=== PATIENT | female | born 1990 | race Caucasian/White ===

== ENCOUNTER 2019-05-29 07:56 | Emergency (ER) | payer OTHER, SELFPAY ==
[2019-05-29 08:39] LABS: Absolute Lymphocytes (CBC) 2.3 K/uL (0.7-4.9); Basophils % 0.5 % (0-1.3); Hematocrit 42.8 % (36.0-45.0); Lymphocytes % 27.6 % (15.3-44.8); MPV 8.4 fL (7.6-11.3); RBC Red Blood Cell Count 4.78 M/uL (3.86-4.86)
[2019-05-29 08:43] LABS: Urine Blood 3+ (NEG); Urine Glucose NEGATIVE (NEG); Urine Protein 1+ (NEG); Urine Specific Gravity >1.030 (1.005-1.030)
[2019-05-29 08:46] LABS: Urine Bacteria <20 /HPF (<20); Urine RBC >50 /HPF (NONE SEEN)
[2019-05-29 08:47] LABS: Urine Culture Reflex Order NOT NEEDED; Urine Mucus LIGHT /HPF (NONE SEEN)
[2019-05-29 08:55] LABS: BUN Blood Urea Nitrogen 10 mg/dL (7-18); Bicarbonate 26 mmol/L (21-32); Glucose Level 96 mg/dL (74-106); HCG, Quantitative 8 mIU/mL (1-3); Potassium 3.5 mmol/L (3.5-5.1); Sodium Level 141 mmol/L (136-145)
--- NOTE | 2019-05-29 10:00 | ER ---
Nurse's Notes [facility] Name: Ceci Harrell Age: 29 yrs Sex: Female : 1990 Arrival Date: 05/29/2019 Time: 07:57 Bed 19 Private MD: Diagnosis: Possible miscarriage Presentation: 05/29 08:00 Presenting complaint: Patient states: Had blood in her underwear, c/o cramping in left rb1 lower quadrant. Onset of symptoms was May 28, 2019. Risk Assessment: Do you want to hurt yourself or someone else? Patient reports no desire to harm self or others. Initial Sepsis Screen: Does the patient meet any 2 criteria? No. Patient's initial sepsis screen is negative. Does the patient have a suspected source of infection? No. Patient's initial sepsis screen is negative. Care prior to arrival: None. 08:00 Acuity: KYA 3 rb1 08:07 Transition of care: patient was not received from another setting of care. ss 08:07 Method Of Arrival: Ambulatory ss Triage Assessment: 08:00 General: Appears comfortable, Behavior is calm, cooperative, crying, Denies fever. rb1 Pain: Complains of pain in left lower quadrant Pain currently is 4 out of 10 on a pain scale. Quality of pain is described as crampy. Neuro: Level of Consciousness is awake, alert, obeys commands, Oriented to person, place, time, situation. Cardiovascular: Capillary refill < 3 seconds is brisk in bilateral fingers. Respiratory: Airway is patent Respiratory effort is even, unlabored, Respiratory pattern is regular, symmetrical. GI: No signs and/or symptoms were reported involving the gastrointestinal system. : Reports vaginal bleeding that is light flow. Derm: Skin is pink, warm \T\ dry. Historical: - Allergies: 08:00 No Known Allergies; rb1 - Home Meds: 08:00 vitamins [Active]; rb1 - PMHx: 08:00 None; rb1 - PSHx: 08:00 None; rb1 - Immunization history:: Adult Immunizations up to date. - Social history:: Smoking status: Patient/guardian denies using tobacco. - Family history:: not pertinent. - Ebola Screening: : Patient negative for fever greater than or equal to 101.5 degrees Fahrenheit, and additional compatible Ebola Virus Disease symptoms. - Hospitalizations: : No recent hospitalization is reported. Screenin:00 Abuse screen: Denies threats or abuse. Nutritional screening: No deficits noted. rb1 Tuberculosis screening: No symptoms or risk factors identified. Fall Risk None identified. Assessment: 08:00 General: See triage assessment. rb1 08:30 Reassessment: Patient appears in no apparent distress at this time. No changes from rb1 previously documented assessment. 09:44 Reassessment: Patient appears in no apparent distress at this time. Patient and/or rb1 family updated on plan of care and expected duration. Pain level reassessed. Patient is alert, oriented x 3, equal unlabored respirations, skin warm/dry/pink. Vital Signs: 08:00 BP 121 / 79; Pulse 83; Resp 17; Temp 97.8(O); Pulse Ox 100% on R/A; Weight 61.23 kg rb1 (R); Height 5 ft. 2 in. (157.48 cm) (R); Pain 4/10; 08:30 BP 104 / 69; Pulse 69; Resp 16; Pulse Ox 99% on R/A; rb1 10:00 BP 106 / 79; Pulse 70; Resp 17; Pulse Ox 98% on R/A; rb1 08:00 Body Mass Index 24.69 (61.23 kg, 157.48 cm) rb1 ED Course: 07:57 Patient arrived in ED. as 07:58 Julio Killian MD is Attending Physician. rn 07:59 Siria Vieira, BENSON is Primary Nurse. rb1 08:00 Patient has correct armband on for positive identification. Bed in low position. Call rb1 light in reach. Side rails up X 1. Pulse ox on. NIBP on. Warm blanket given. 08:00 Arm band placed on right wrist. rb1 08:11 Triage completed. rb1 08:24 Inserted saline lock: 22 gauge in right antecubital area, using aseptic technique. rb1 Blood collected. 08:25 Urine collected: clean catch specimen, vineet colored. dh3 09:17 US Transvaginal Ob In Process Unspecified. EDMS 10:15 No provider procedures requiring assistance completed. IV discontinued, intact, rb1 bleeding controlled, No redness/swelling at site. Pressure dressing applied. 10:15 No provider procedures requiring assistance completed. rb1 Administered Medications: No medications were administered Outcome: 10:00 Discharge ordered by . rn 10:15 Patient left the ED. rb1 10:15 Discharged to home ambulatory, with family. rb1 10:15 Condition: stable 10:15 Discharge instructions given to patient, Instructed on discharge instructions, follow up and referral plans. Demonstrated understanding of instructions, follow-up care, Prescriptions given X none Signatures: Dispatcher [employer] Sarah Lizama Roman, MD MD rn Smirch, Shelby, RN RN Siria Vieira RN RN [facility] Ivana Mohan [facility]
--- NOTE | 2019-05-29 10:01 | EDPHYS ---
Physician Documentation [facility] Name: Ceci Harrell Age: 29 yrs Sex: Female : 1990 Arrival Date: 05/29/2019 Time: 07:57 Bed 19 Private MD: ED Physician Julio Killian HPI: 05/29 08:08 This 29 yrs old Female presents to ER via Ambulatory with complaints of rn Vaginal Bleeding, + Preg <12wks. 08:08 The patient presents to the emergency department with vaginal bleeding, that is light, rn with no clots. The estimated gestational age is 5 weeks. course: care: none, Leakage of Fluid: none appreciated, Ultrasound: the patient has not had an ultrasound. Previous pregnancies: in previous pregnancies patient has had no complications. The patient has not experienced similar symptoms in the past. Reports approx 5 weeks preg based on LMP, reports yesterday began with light bleeding, not much worse, + abd cramping worse on left, no fever, no trauma. Has been trying to get , no hormones, naturally.. Historical: - Allergies: 08:00 No Known Allergies; rb1 - Home Meds: 08:00 vitamins [Active]; rb1 - PMHx: 08:00 None; rb1 - PSHx: 08:00 None; rb1 - Immunization history:: Adult Immunizations up to date. - Social history:: Smoking status: Patient/guardian denies using tobacco. - Family history:: not pertinent. - Ebola Screening: : Patient negative for fever greater than or equal to 101.5 degrees Fahrenheit, and additional compatible Ebola Virus Disease symptoms. - Hospitalizations: : No recent hospitalization is reported. ROS: 08:08 Constitutional: Negative for fever, chills, and weight loss, Eyes: Negative for injury, rn pain, redness, and discharge, Neck: Negative for injury, pain, and swelling, Cardiovascular: Negative for chest pain, palpitations, and edema, Respiratory: Negative for shortness of breath, cough, wheezing, and pleuritic chest pain, Abdomen/GI: + left lower abd cramping Back: Negative for injury and pain, : + vaginal bleeding MS/Extremity: Negative for injury and deformity, Skin: Negative for injury, rash, and discoloration, Neuro: Negative for headache, weakness, numbness, tingling, and seizure. Exam: 08:08 Constitutional: This is a well developed, well nourished patient who is awake, alert, rn and in no acute distress. Ambulatory to room without assistance, tearful. Head/Face: Normocephalic, atraumatic. Cardiovascular: Regular rate and rhythm. No pulse deficits. Respiratory: No increased work of breathing, no retractions or nasal flaring. Abdomen/GI: soft, non-tender Skin: Warm, dry MS/ Extremity: Pulses equal, no cyanosis. Neuro: Awake and alert, GCS 15, oriented to person, place, time, and situation. Cranial nerves II-XII grossly intact. Motor strength 5/5 in all extremities. Sensory grossly intact. Cerebellar exam normal. Normal gait. Vital Signs: 08:00 BP 121 / 79; Pulse 83; Resp 17; Temp 97.8(O); Pulse Ox 100% on R/A; Weight 61.23 kg rb1 (R); Height 5 ft. 2 in. (157.48 cm) (R); Pain 4/10; 08:30 BP 104 / 69; Pulse 69; Resp 16; Pulse Ox 99% on R/A; rb1 10:00 BP 106 / 79; Pulse 70; Resp 17; Pulse Ox 98% on R/A; rb1 08:00 Body Mass Index 24.69 (61.23 kg, 157.48 cm) rb1 MDM: 07:58 Patient medically screened. rn 09:58 Differential diagnosis: ectopic . Data reviewed: vital signs, nurses notes, internal control specialist test result(s), radiologic studies, ultrasound, and as a result, I will discharge patient. Counseling: I had a detailed discussion with the patient and/or guardian regarding: the historical points, exam findings, and any diagnostic results supporting the discharge/admit diagnosis, lab results, radiology results, the need for outpatient follow up, to return to the emergency department if symptoms worsen or persist or if there are any questions or concerns that arise at home. Response to treatment: the patient's symptoms have mildly improved after treatment, and as a result, I will discharge patient. Special discussion: I discussed with the patient/guardian in detail that at this point there is no indication for admission to the hospital. It is understood, however, that if the symptoms persist or worsen the patient needs to return immediately for re-evaluation. Based on the history and exam findings, there is no indication for further emergent testing or inpatient evaluation. I discussed with the patient/guardian the need to see the OB Gyne specialist for further evaluation of the symptoms. ED course: HCG 8, RH+, no UTI, U/S does not show evidence of IUP but pelvis and adnexa look normal otherwise. Will dc home as undetermined, most likely completing spontaneous Ab, but to be determined with repeat beta and u/s. . 10:07 ED course: Explained possible ectopic and reason for repeat beta and rn evaluation. . 05/29 08:08 Order name: Quantitative Hcg; Complete Time: 09:06 rn 05/29 08:08 Order name: Abo/rh Typing; Complete Time: 09:06 rn 05/29 08:08 Order name: Basic Metabolic Panel; Complete Time: 09:06 rn 05/29 08:08 Order name: CBC with Diff; Complete Time: 09:06 rn 05/29 08:08 Order name: Urine Microscopic Only; Complete Time: 09:06 rn 05/29 08:36 Order name: Urine Dipstick--Ancillary (enter results); Complete Time: 09:06 em1 05/29 08:08 Order name: Urine Test (obtain specimen); Complete Time: 08:32 rn 05/29 08:08 Order name: IV Saline Lock; Complete Time: 08:35 rn 05/29 08:08 Order name: Labs collected and sent; Complete Time: 08:35 rn 05/29 08:08 Order name: NPO; Complete Time: 08:35 rn 05/29 08:08 Order name: Urine Dipstick-Ancillary (obtain specimen); Complete Time: 08:32 rn 05/29 08:08 Order name: US Transvaginal Ob; Complete Time: 10:06 rn 05/29 08:36 Order name: Urine --Ancillary (enter results); Complete Time: 09:06 em1 Administered Medications: No medications were administered Disposition: 05/29/19 10:00 Discharged to Home. Impression: Possible miscarriage. - Condition is Stable. - Discharge Instructions: Miscarriage, Threatened Miscarriage. - Medication Reconciliation Form, Thank You Letter, Antibiotic Education, Prescription Opioid Use form. - Follow up: Private Physician; When: 48 Hours; Reason: Further diagnostic work-up, Recheck today's complaints, Repeat Beta-HCG (48 Hours), Re-evaluation by your physician. - Problem is new. - Symptoms have improved. Signatures: Dispatcher [employer] EDJulio Marcus MD MD rn Barber, Rebecca, RN RN rb1 Corrections: (The following items were deleted from the chart) 10:15 10:00 05/29/2019 10:00 Discharged to Home. Impression: Possible miscarriage. Condition rb1 is Stable. Forms are Medication Reconciliation Form, Thank You Letter, Antibiotic Education, Prescription Opioid Use. Follow up: Private Physician; When: 48 Hours; Reason: Further diagnostic work-up, Recheck today's complaints, Repeat Beta-HCG (48 Hours), Re-evaluation by your physician. Problem is new. Symptoms have improved. rn
--- NOTE | 2019-05-29 10:06 | RAD REPORT ---
EXAM DESCRIPTION: US - Transvaginal OB - 05/29/2019 9:17 am CLINICAL HISTORY: Abd pain;Vaginal bleeding COMPARISON: No comparisons FINDINGS: The uterus measures 6.4 x 6.6 x 4.0 cm. No myometrial mass. Endometrium measures 8 mm in t hickness. No IUP is identified. Both ovaries are normal in size, shape and echotexture. Right ovary measures 2.2 x 2.2 cm. Left ovary measures 1.5 x 1.4 cm. No adnexal masses. Normal Doppler blood flow was demonstrated to both ovaries. No pelvic ascites. IMPRESSION: No IUP is confirmed on this study. In this setting of an elevated HCG level, this would indicate of unknown location. Advise serial HCG measurements and follow-up pelvic sonograph y in 7-10 days.
[2019-05-29 10:35] VITALS: TEMP 97.8
[2019-05-29 10:39] VITALS: BP 106/79; O2SAT 98
== END 2019-05-29 10:15 | disposition home or self-care (01) ==
LOC: ER 07:56
DX: O20.0 Threatened abortion (principal); Z3A.01 Less than 8 weeks gestation of pregnancy
CPT/HCPCS: 36415; 76817; 80048; 81003; 81015; 81025; 84702; 85025; 86900; 86901; 99284

== ENCOUNTER 2020-10-30 10:59 | Emergency (ER) | payer OTHER ==
--- OUTSIDE RECORDS SUMMARY | 2020-10-30 11:01 | XMS REPORT | Continuity of Care Document ---
:1990 Author Organization [facility] t Address [address] [place] [address] Dr. Syed [address] [place] [id number] Care Team Providers Name Role Phone Malachi Durbin Attending Clinician Doctor Unassigned, Name Attending Clinician Unavailable Problems Condition Condition Condition Status Onset Resolution Last Treating Co mments Source Name Details Category Date Date Treatment Clinician Date Encounter Encounter Diagnosis Active [facility] adult adult l medical medical Outpati examinatio examinatio en t n without n without Clin ics abnormal abnormal findings findings Tobacco Tobacco Diagnosis Active [facility] counseling [facility] Out[facility] Clinics Allergies, Adverse Reactions, Alerts This patient has no known allergies or adverse reactions. Medications Ordered Filled Start Stop Current Ordering Indication Dosage Frequency Signature Comments Components Source Medication Medication Date Date Medication? Clinician (SIG) Name Name 1 1 Yes Yvan not C [facility] defined [facility] Procedures This patient has no known procedures. 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
[2020-10-30 11:55] LABS: Urine Blood 1+ (Negative); Urine Glucose Negative (Negative); Urine Protein Negative (Negative); Urine pH 5.5 (5.0-7.0)
[2020-10-30 12:37] LABS: Absolute Lymphocytes (CBC) 1.8 K/uL (0.7-4.9); Basophils % 0.7 % (0-1.3); Hematocrit 42.1 % (36.0-45.0); Lymphocytes % 26.9 % (15.3-44.8); RBC Red Blood Cell Count 4.71 M/uL (3.86-4.86)
--- NOTE | 2020-10-30 12:39 | RAD REPORT ---
EXAM DESCRIPTION: US - Transvaginal OB - 10/30/2020 12:26 pm CLINICAL HISTORY: with abdominal pain COMPARISON: None. FINDINGS: The uterus measures 7 x 4 x 5 centimeters. It is retroverted The endometrial stripe measu res 8 millimeters. A gestational sac is not seen. Ovaries are normal in size and echotexture.. An adnexal mass is not noted. No significant free fluid IMPRESSION: Nonvisualization of a gestational sac within the endometrium. These findings could represent an early intrauterine in which the gestational sac is not se en. and even an ectopic can also result in this appearance. This all should be cor related clinically and with serial beta HCG levels. Followup endovaginal sonogram in 1 week recommend ed
[2020-10-30 12:55] LABS: BUN Blood Urea Nitrogen 9 mg/dL (7-18); Bicarbonate 25 mmol/L (21-32); Glucose Level 95 mg/dL (74-106); HCG, Quantitative 11 mIU/mL (1-3); Potassium 3.7 mmol/L (3.5-5.1); Sodium Level 140 mmol/L (136-145)
--- NOTE | 2020-10-30 13:31 | ER ---
Nurse's Notes [facility] Name: Ceci Harrell Age: 30 yrs Sex: Female : 1990 Arrival Date: 10/30/2020 Time: 11:01 Bed 8 Private MD: Diagnosis: Abnormal uterine and vaginal bleeding, unspecified-with complete Presentation: 10/30 11:18 Chief complaint: Mild abdominal cramping and scant red vaginal bleeding after urinating hb today. 4 weeks , LMP 09/29, RANGEL 07/07/21. Received notification through [facility] [employer] that she has a UTI but is not yet taking antibiotics. Coronavirus screen: At this time, the client does not indicate any symptoms associated with coronavirus-19. Ebola Screen: No symptoms or risks identified at this time. Initial Sepsis Screen: Does the patient meet any 2 criteria? No. Patient's initial sepsis screen is negative. Does the patient have a suspected source of infection? No. Patient's initial sepsis screen is negative. Risk Assessment: Do you want to hurt yourself or someone else? Patient reports no desire to harm self or others. Onset of symptoms was October 30, 2020. 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 - Social history:: Smoking status: Patient/guardian denies using tobacco, Stopped _ months ago .25. - Family history:: not pertinent. Screenin:47 Abuse screen: Denies threats or abuse. Denies injuries from another. Nutritional ph screening: No deficits noted. Tuberculosis screening: No symptoms or risk factors identified. Fall Risk None identified. Assessment: 11:46 General: Appears in no apparent distress. comfortable, slender, well groomed, Behavior ph is calm, cooperative, appropriate for age. Pain: Complains of pain in suprapubic area Quality of pain is described as crampy. Neuro: Level of Consciousness is awake, alert, obeys commands, Oriented to person, place, time, situation. Cardiovascular: Capillary refill < 3 seconds Patient's skin is warm and dry. Respiratory: Airway is patent Respiratory effort is even, unlabored. GI: Patient currently denies diarrhea, nausea, vomiting. : Reports vaginal bleeding that is light flow, spotty, Denies burning with urination, urinary frequency. Derm: Skin is intact, is healthy with good turgor, Skin is pink, warm \T\ dry. Musculoskeletal: Circulation, motion, and sensation intact. Range of motion: intact in all extremities. 13:00 Reassessment: Patient appears in no apparent distress at this time. Patient and/or ph family updated on plan of care and expected duration. Pain level reassessed. Patient is alert, oriented x 3, equal unlabored respirations, skin warm/dry/pink. 14:23 Reassessment: Patient appears in no apparent distress at this time. Patient and/or ph family updated on plan of care and expected duration. Pain level reassessed. Patient is alert, oriented x 3, equal unlabored respirations, skin warm/dry/pink. Pt d/c home w/ friend. Vital Signs: 11:18 BP 128 / 76; Pulse 67; Resp 16; Temp 97.8; Pulse Ox 100% on R/A; Weight 57.15 kg; hb Height 5 ft. 2 in. (157.48 cm); Pain 3/10; 13:00 BP 118 / 72; Pulse 64; Resp 18; Pulse Ox 99% on R/A; ph 14:24 BP 122 / 85; Pulse 71; Resp 14; Temp 98.0; Pulse Ox 100% on R/A; ph 11:18 Body Mass Index 23.05 (57.15 kg, 157.48 cm) hb ED Course: 11:01 Patient arrived in ED. ds1 11:20 Triage completed. hb 11:21 Arm band placed on. hb 11:25 Latoya Martinez MD is Attending Physician. ma2 11:34 Lisa Gross, BENSON is Primary Nurse. ph 11:48 Patient has correct armband on for positive identification. Bed in low position. Call ph light in reach. Side rails up X 1. Pulse ox on. NIBP on. Door closed. Noise minimized. 12:15 Inserted saline lock: 20 gauge in right antecubital area, using aseptic technique. ph Blood collected. 12:26 Transvaginal OB In Process Unspecified. EDMS 14:24 No provider procedures requiring assistance completed. IV discontinued, intact, ph bleeding controlled, No redness/swelling at site. Pressure dressing applied. Administered Medications: No medications were administered Point of Care Testing: Urine : 14:24 hCG Reading: Negative; ph Outcome: 13:31 Discharge ordered by . [email or web address] 14:25 Discharged to home ambulatory, with friend. ph 14:25 Condition: good 14:25 Discharge instructions given to patient, Instructed on discharge instructions, follow up and referral plans. medication usage, Demonstrated understanding of instructions, follow-up care, medications, Prescriptions given X 1. 14:25 Patient left the ED. ph Signatures: Dispatcher [employer] EDDE UngerPooja christopher ds1 Lisa Gross RN RN Idalia Enrique RN RN Latoya Martinez MD MD ma2 Corrections: (The following items were deleted from the chart) 11:24 11:18 Chief complaint: Mild abdominal cramping and scant red vaginal bleeding after hb urinating today. Receive notification through [facility] that she has a UTI but is not yet taking antibiotics.
--- NOTE | 2020-10-30 13:31 | EDPHYS ---
Physician Documentation [facility] Name: Ceci Harrell Age: 30 yrs Sex: Female : 1990 Arrival Date: 10/30/2020 Time: 11:01 Bed 8 Private MD: ED Physician Latoya Martinez HPI: 10/30 12:49 This 30 yrs old Female presents to ER via Ambulatory with complaints of ma2 Vaginal Bleeding, + Preg <12wks. 12:49 The patient presents to the emergency department with vaginal bleeding. The estimated ma2 gestational age is 4 weeks. Associated signs and symptoms: Pertinent negatives: diarrhea, frequency, nausea. The patient has not experienced similar symptoms in the past. 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 - Social history:: Smoking status: Patient/guardian denies using tobacco, Stopped _ months ago .25. - Family history:: not pertinent. ROS: 12:49 Constitutional: Negative for fever, chills, and weight loss. ma2 12:49 All other systems are negative. Exam: 12:49 Constitutional: This is a well developed, well nourished patient who is awake, alert, ma2 and in no acute distress. Chest/axilla: Normal chest wall appearance and motion. Nontender with no deformity. No lesions are appreciated. Cardiovascular: Regular rate and rhythm with a normal S1 and S2. No gallops, murmurs, or rubs. Normal PMI, no JVD. No pulse deficits. Respiratory: Lungs have equal breath sounds bilaterally, clear to auscultation and percussion. No rales, rhonchi or wheezes noted. No increased work of breathing, no retractions or nasal flaring. Abdomen/GI: Soft, non-tender, with normal bowel sounds. No distension or tympany. No guarding or rebound. No evidence of tenderness throughout. Back: No spinal tenderness. No costovertebral tenderness. Full range of motion. Skin: Warm, dry with normal turgor. Normal color with no rashes, no lesions, and no evidence of cellulitis. MS/ Extremity: Pulses equal, no cyanosis. Neurovascular intact. Full, normal range of motion. Vital Signs: 11:18 BP 128 / 76; Pulse 67; Resp 16; Temp 97.8; Pulse Ox 100% on R/A; Weight 57.15 kg; hb Height 5 ft. 2 in. (157.48 cm); Pain 3/10; 13:00 BP 118 / 72; Pulse 64; Resp 18; Pulse Ox 99% on R/A; ph 14:24 BP 122 / 85; Pulse 71; Resp 14; Temp 98.0; Pulse Ox 100% on R/A; ph 11:18 Body Mass Index 23.05 (57.15 kg, 157.48 cm) hb MDM: 11:26 Patient medically screened. ma2 13:30 Differential diagnosis: delivery of infant, STD, Data reviewed: vital signs, nurses ma2 notes. Counseling: I had a detailed discussion with the patient and/or guardian regarding: the historical points, exam findings, and any diagnostic results supporting the discharge/admit diagnosis, the presence of at least one elevated blood pressure reading (>120/80) during this emergency department visit, the need for outpatient follow up. Response to treatment: the patient's symptoms have markedly improved after treatment. 10/30 11:27 Order name: Quantitative Hcg; Complete Time: 13:15 [facility] 10/30 11:27 Order name: Abo/rh Typing; Complete Time: 13:15 [facility] 10/30 11:27 Order name: Basic Metabolic Panel; Complete Time: 13:15 [facility] 10/30 11:27 Order name: CBC with Diff; Complete Time: 12:42 [facility] 10/30 11:55 Order name: Urine Dipstick-Ancillary; Complete Time: 12:28 EDMS 10/30 11:57 Order name: Urine --Ancillary (enter results) bd 10/30 11:27 Order name: IV Saline Lock; Complete Time: 11:48 [facility] 10/30 11:27 Order name: Labs collected and sent; Complete Time: 11:48 [facility] 10/30 11:27 Order name: NPO; Complete Time: 11:48 [facility] 10/30 11:27 Order name: Urine Dipstick-Ancillary (obtain specimen); Complete Time: 11:48 [facility] 10/30 12:26 Order name: Transvaginal OB; Complete Time: 12:42 EDMS Administered Medications: No medications were administered Point of Care Testing: Urine : 14:24 hCG Reading: Negative; ph Disposition: 10/30/20 13:31 Discharged to Home. Impression: Abnormal uterine and vaginal bleeding, unspecified - with complete . - Condition is Stable. - Discharge Instructions: Miscarriage. - Prescriptions for Diclofenac Sodium 75 mg Oral Tablet Sustained Release - take 1 tablet by ORAL route 2 times per day; 30 tablet. - Medication Reconciliation Form, Thank You Letter, Antibiotic Education, Prescription Opioid Use form. - Follow up: Private Physician; When: Tomorrow; Reason: If symptoms return. Signatures: Dispatcher [employer] [facility] Lisa Gross RN RN ph Idalia Enrique RN RN Latoya Martinez MD MD ma2 Corrections: (The following items were deleted from the chart) 12:26 11:27 OB Complete+US.RAD.BRZ ordered. [facility] 14:25 13:31 10/30/2020 13:31 Discharged to Home. Impression: Abnormal uterine and vaginal ph bleeding, unspecified - with complete . Condition is Stable. Forms are Medication Reconciliation Form, Thank You Letter, Antibiotic Education, Prescription Opioid Use. Follow up: Private Physician; When: Tomorrow; Reason: If symptoms return. ma2
[2020-10-30 14:41] VITALS: BP 122/85; TEMP 98; O2SAT 100
== END 2020-10-30 14:25 | disposition home or self-care (01) ==
LOC: ER 10:59
DX: O03.9 Complete or unspecified spontaneous abortion without complication (principal)
CPT/HCPCS: 36415; 76817; 80048; 81003; 81025; 84702; 85025; 86900; 86901; 99284

== ENCOUNTER 2021-02-21 11:32 | Emergency (ER) | payer OTHER ==
--- NOTE | 2021-02-21 12:04 | ER ---
Nurse's Notes [facility] Name: Ceci Harrell Age: 30 yrs Sex: Female : 1990 Arrival Date: 02/21/2021 Time: 11:35 Bed 11 Private MD: Diagnosis: Dental pain Presentation: 02/21 11:58 Chief complaint: Patient states: Dental pain x 1 week. Pain radiates to jaw and into ch5 ear. Coronavirus screen: Vaccine status: Patient reports being unvaccinated. Ebola Screen: Patient negative for fever greater than or equal to 101.5 degrees Fahrenheit, and additional compatible Ebola Virus Disease symptoms Patient denies exposure to infectious person. Patient denies travel to an Ebola-affected area in the 21 days before illness onset. Initial Sepsis Screen: Does the patient meet any 2 criteria? No. Patient's initial sepsis screen is negative. Does the patient have a suspected source of infection? No. Patient's initial sepsis screen is negative. Risk Assessment: Do you want to hurt yourself or someone else? Patient reports no desire to harm self or others. 11:58 Method Of Arrival: Ambulatory [facility] 11:58 Acuity: KYA 4 ch5 - Immunization history:: Adult Immunizations up to date, Client reports having NOT received the Covid vaccine. - Social history:: Smoking status: Patient/guardian denies using tobacco, Stopped _ months ago 1. Screenin:01 Abuse screen: Denies threats or abuse. Denies injuries from another. Nutritional ch5 screening: No deficits noted. Tuberculosis screening: No symptoms or risk factors identified. Fall Risk None identified. Assessment: 12:01 Reassessment: Patient and/or family updated on plan of care and expected duration. Pain ch5 level reassessed. Pain: Complains of pain in Dental pain. Vital Signs: 11:58 BP 130 / 85; Pulse 71; Resp 20; Temp 98.9; Pulse Ox 100% ; Weight 57.15 kg; Height 5 ch5 ft. 2 in. (157.48 cm); Pain 7/10; 12:01 BP 130 / 85; Pulse 71; Resp 18; Temp 98.9; Pulse Ox 100% ; Pain 7/10; ch5 11:58 Body Mass Index 23.05 (57.15 kg, 157.48 cm) 5 ED Course: 11:35 Patient arrived in ED. as 11:56 Bon Hannah NP is PHCP. pm1 11:56 Zacarias Flowers MD is Attending Physician. pm1 11:57 Terence Donaldson, RN is Primary Nurse. ch5 12:00 Triage completed. ch5 12:01 Patient has correct armband on for positive identification. ch5 12:01 No provider procedures requiring assistance completed. Inserted Patient did not have IV ch5 access during this emergency room visit. Administered Medications: 12:11 Drug: [place] (HYDROcodone-acetaminophen) 5 mg-325 mg 1 tabs Route: PO; ch5 Outcome: 12:04 Discharge ordered by . pm1 12:46 Discharged to home ch5 12:46 Condition: stable 12:46 Discharge instructions given to Prescriptions given X 2. 12:46 Patient left the ED. 5 Signatures: Sarah Coronado as Bon Hannah NP CHIEF ACCOUNTING OFFICER pm1 Terence Donaldson, RN RN [facility]
--- NOTE | 2021-02-21 12:04 | EDPHYS ---
Physician Documentation [facility] Name: Ceci Harrell Age: 30 yrs Sex: Female : 1990 Arrival Date: 02/21/2021 Time: 11:35 Bed 11 Private MD: ED Physician Zacarias Flowers HPI: 02/21 12:03 This 30 yrs old Female presents to ER via Ambulatory with complaints of pm1 Dental pain. 17:50 The patient presents with pain. The problem is located in the lower right first pm1 bicuspid. Onset: The symptoms/episode began/occurred 1 week(s) ago. Duration: The symptoms are continuous. Modifying factors: The symptoms are alleviated by nothing. Associated signs and symptoms: Pertinent positives: Right ear pain, right jaw pain, and right anterior cervical lymph node pain. Severity of symptoms: in the emergency department the symptoms are actually worse. The patient has not experienced similar symptoms in the past. The patient has not recently seen a physician. - Immunization history:: Adult Immunizations up to date, Client reports having NOT received the Covid vaccine. - Social history:: Smoking status: Patient/guardian denies using tobacco, Stopped _ months ago 1. ROS: 17:50 Constitutional: Negative for fever, chills, and weight loss. pm1 17:50 Cardiovascular: Negative for chest pain, palpitations, and edema, Respiratory: Negative for shortness of breath, cough, wheezing, and pleuritic chest pain, MS/Extremity: Negative for injury and deformity, Skin: Negative for injury, rash, and discoloration, Neuro: Negative for headache, weakness, numbness, tingling, and seizure. 17:50 ENT: Positive for dental pain, ear pain, Negative for sore throat, difficulty swallowing, difficulty handling secretions, hoarseness. 17:50 All other systems are negative. Exam: 17:50 Constitutional: This is a well developed, well nourished patient who is awake, alert, pm1 and in no acute distress. Head/Face: Normocephalic, atraumatic. 17:50 Skin: Warm, dry with normal turgor. Normal color with no rashes, no lesions, and no evidence of cellulitis. MS/ Extremity: Pulses equal, no cyanosis. Neurovascular intact. Full, normal range of motion. 17:50 Eyes: Exam is negative for acute changes, Extraocular movements: no acute changes, Conjunctiva: normal. 17:50 ENT: Exam is negative for acute changes, Mouth: no acute changes, Lips: normal, moist, Oral mucosa: normal, pink and intact, moist. 17:50 Neck: Lymph nodes: lymphadenopathy is appreciated, anterior cervical nodes. 17:50 Cardiovascular: Exam negative for acute changes, Rate: normal, Rhythm: regular, Pulses: no pulse deficits are appreciated. 17:50 Respiratory: Exam negative for acute changes, respiratory distress, shortness of breath. 17:50 Neuro: Exam negative for acute changes, Orientation: is normal, Mentation: is normal, Motor: is normal, moves all fours. Vital Signs: 11:58 BP 130 / 85; Pulse 71; Resp 20; Temp 98.9; Pulse Ox 100% ; Weight 57.15 kg; Height 5 ch5 ft. 2 in. (157.48 cm); Pain 7/10; 12:01 BP 130 / 85; Pulse 71; Resp 18; Temp 98.9; Pulse Ox 100% ; Pain 7/10; ch5 11:58 Body Mass Index 23.05 (57.15 kg, 157.48 cm) ch5 MDM: 11:56 Patient medically screened. pm1 12:03 Data reviewed: vital signs. Data interpreted: Pulse oximetry: on room air is 100 %. pm1 Interpretation: normal. 12:03 Counseling: I had a detailed discussion with the patient and/or guardian regarding: the pm1 historical points, exam findings, and any diagnostic results supporting the discharge/admit diagnosis, the need for outpatient follow up, for definitive care, a dentist, to return to the emergency department if symptoms worsen or persist or if there are any questions or concerns that arise at home. 12:21 ED course: [place] reviewed. pm1 Administered Medications: 12:11 Drug: [place] (HYDROcodone-acetaminophen) 5 mg-325 mg 1 tabs Route: PO; ch5 Disposition: 02/22 08:48 Co-signature as Attending Physician, Zacarias Flowers MD I agree with the assessment and kdr plan of care. Disposition Summary: 02/21/21 12:04 Discharge Ordered Location: Home pm1 Problem: new pm1 Symptoms: have improved pm1 Condition: Stable pm1 Diagnosis - Dental pain pm1 Followup: pm1 - With: Emergency Department - When: As needed - Reason: Worsening of condition Followup: pm1 - With: Private Physician - When: 2 - 3 days - Reason: Recheck today's complaints, Continuance of care, Re-evaluation by your physician Discharge Instructions: - Discharge Summary Sheet pm1 - Dental Pain pm1 Forms: - Medication Reconciliation Form pm1 - Thank You Letter pm1 - Antibiotic Education pm1 - Prescription Opioid Use pm1 Prescriptions: - acetaminophen-codeine 300-15 mg Oral tablet - take 2 tablet by ORAL route every 6 hours As needed; 20 tablet; Refills: 0, pm1 Product Selection Permitted - Amoxicillin 500 mg Oral Capsule - take 1 capsule by ORAL route every 8 hours for 10 days; 30 tablet; Refills: 0, pm1 Product Selection Permitted Signatures: Zacarias Flowers MD MD kdr Marinas, Patrick, NP [employer] pm1 Terence Donaldson RN RN ch5
[2021-02-21] MEDS ORDERED: HYDROCODONE/APAP 5/325 MG TAB ONE (12:34)
[2021-02-21 12:55] VITALS: BP 130/85; TEMP 98.9; O2SAT 100
== END 2021-02-21 12:46 | disposition home or self-care (01) ==
LOC: ER 11:32
DX: K08.89 Other specified disorders of teeth and supporting structures (principal)
CPT/HCPCS: 99283

== ENCOUNTER 2021-05-18 10:54 | Emergency (ER) | payer OTHER ==
--- OUTSIDE RECORDS SUMMARY | 2021-05-18 10:58 | XMS REPORT | Continuity of Care Document ---
:[address] [facility] t Address [facility] [address] [place] [id number] Care Team Providers Name Role Phone Malachi Durbin Primary Care Physician Malachi DIAZ Attending Clinician Unavailable Visit, Nurse Attending Clinician Unavailable Malachi Durbin Attending Clinician Doctor Unassigned, Name Attending Clinician Unavailable Payers Payer Name Policy Type Policy Number Effective Date Expiration Date Mart MCGILL [id number] 2016 HEALTH 00:00:00 Problems Condition Condition Condition Status Onset Resolution Last Treating Co mments Source Name Details Category Date Date Treatment Clinician Date Gonorrhea, Gonorrhea, Disease Active Overview : Univers current current 05-17 Formattin ity o f 00:00: [place] 00 note Medical might be Branch different from the original. pending Tobacco Tobacco Disease Active 2020-05 Overview: Univ ers use in use in Formattin ity of 00:00: [place] 00 note Medical might be Branch different from the original. Reports quit x6 days ago History of History of Disease Active 2020-05 U nivers depression depression it y of 00:00: [place] 00 Medical Branch Susceptibl Susceptibl Disease Active Overview : Univers e to e to 18 Formattin ity of varicella varicella 00:00: [place] of [place] (non-immun (non-immun 00 note Me dical e), e), might be Branch currently currently different from the original. Address pp Supervisio Supervisio Disease Active U nivers n of n of -17 ity of high[place]risk [place] [facility] Multiparit Multiparit Disease Active U nivers y y 6 ity of 00:00: [address] History of History of Disease Active U nivers miscarriag miscarriag 10-28 it y of e e 00:00: [address] Molluscum Molluscum Disease Active Uni vers contagiosu contagiosu 2 it y of m m 00:00: [address] Encounter Encounter Diagnosis Active [facility] general Memoria adult adult l medical medical Outpati examinatio examinatio en t n without n without Clin ics abnormal abnormal findings findings Tobacco Tobacco Diagnosis Active [facility] counseling Me moria l Outpati ent Clinics Allergies, Adverse Reactions, Alerts Allergy Allergy Status Severity Reaction(s) Onset Inactive Treating Comm ents Source Name Type Date Date Clinician NO KNOWN Drug Active Univers ALLERGIE Class ity of S [facility] Social History Social Habit Start Date Stop Date Quantity Comments Source ASSERTION 2021-04-26 [facility] 00:00:00 [facility] Exposure to Not sure [facility] SARS-CoV-2 [facility] (event) [place] Alcohol intake 2021-05-18 2021-05-18 Ex-drinker [facility] 00:00:00 00:00:00 (finding) [facility] History of 2021-05-07 Smoker University of tobacco use 00:00:00 [facility] Tobacco use and 2020-10-28 2020-10-28 Never used Universit y of exposure 00:00:00 00:00:00 [facility] Sex Ass[birth year] At [birth year] Universit y of 00:00:00 00:00:00 [facility] Smoking Status Start Date Stop Date Source Former smoker 2020-10-28 00:00:00 2020-10-28 00:00:00 Universi ty of [facility] Medications Ordered Filled Start Stop Current Ordering Indication Dosage Frequency Signature Comments Components Source Medication Medication Date Date Medication? Clinician (SIG) Name Name cefTRIAXone 2021- No [id number] 500mg Univers (ROCEPHIN) 05-18 9108 ity of injection 16:30: 15:29 [place] 500 mg 00 :00 [facility] cefTRIAXone 2021- No [id number] 500mg 500 mg, Univers (ROCEPHIN) 05-1808 Intramuscu it y of injection 16:30: 15:29 lar, ONCE, [place] 500 mg 00 :00 1 dose, On Medical Sun05/18/21 Branch at 1030, ABAD
Re ason for Anti-Infec tive: Documented Infection< br>Documen greg Infection Site: Other
O ther site: genitourin teresa
Dur ation of Therapy: Other (see Comments) cefTRIAXone 2021- No [id number] 250mg Univers (ROCEPHIN) 05-18 9108 ity of injection 16:00: 15:11 [place] 250 mg 00 :40 [facility] cefTRIAXone 2021- No [id number] 250mg Univers (ROCEPHIN) 05-18 9108 ity of injection 16:00: 15:11 [place] 250 mg 00 :38 [facility] cefTRIAXone 2021- No [id number] 500mg 500 mg by Univers 500 mg 05-18 9108 Intramuscu ity of injection 00:00: 00:[place] 00 :[place] once now Medical for 1 Branch dose. 2020-05 Yes [id number] 1{tbl} Take 1 U nivers multivitami 2-31 tablet by ity of n ( 00:00: mouth [place] VITAMIN) 00 daily. Medical tablet Branch foLIC acid 2020-05 Yes [id number] 1mg Take 1 U nivers 1 mg tablet 2-31 tablet by ity of 00:00: mouth [place] 00 daily. Medical Branch 2020-05 Yes [id number] 1{tbl} Take 1 U nivers multivitami 2-31 tablet by ity of n ( 00:00: mouth [place] VITAMIN) 00 daily. Medical tablet Branch foLIC acid 2020-05 Yes [id number] 1mg Take 1 U nivers 1 mg tablet 2-31 tablet by ity of 00:00: mouth [place] 00 daily. Medical Branch 2020-05 Yes [id number] 1{tbl} Take 1 U nivers multivitami 2-31 tablet by ity of n ( 00:00: mouth [place] VITAMIN) 00 daily. Medical tablet Branch foLIC acid 2020-05 Yes [id number] 1mg Take 1 U nivers 1 mg tablet 2-31 tablet by ity of 00:00: mouth [place] 00 daily. Medical Branch 2020-05- No [id number] 1{tbl} Take 1 Univers multivitami 2-31 12-31 tablet by it y of n ( 00:00[place] V[place] :00 daily. Medical tablet Branch Yes [id number] 1{tbl} Take 1 U nivers multivitami 6-17 tablet by ity of n ( 00:00: mouth [place] VITAMIN) 00 daily. Medical tablet Branch Yes [id number] 1{tbl} Take 1 U nivers multivitami 6-17 tablet by ity of n ( 00:00: mouth [place] VITAMIN) 00 daily. Medical tablet Branch Yes [id number] 1{tbl} Take 1 U nivers multivitami 6-17 tablet by ity of n ( 00:00: mouth [place] VITAMIN) 00 daily. Medical tablet Branch [address] [facility] defined [facility] Clinics Vital Signs Vital Name Observation Time Observation Value Comments Source Systolic blood 2021-05-18 14:38:00 125 mm[Hg] [facility] Fall[facility] sity [facility] Diastolic blood 2021-05-18 14:38:00 76 mm[Hg] [facility] Fallse [facility] Heart rate 2021-05-18 14:38:00 76 /min [facility] Body temperature 2021-05-18 14:38:00 36.22 Anila [facility] Respiratory rate 2021-05-18 14:38:00 20 /min [facility] Body height 2021-05-18 14:38:[address] [facility] Body weight 2021-05-18 14:38:00 60.238 kg Universi [facility] BMI 2021-05-18 14:38:00 24.29 kg/m2 Universi ty [facility] Systolic blood 2021-05-13 16:32:00 120 mm[Hg] Univer sity of pressure [facility] Diastolic blood 2021-05-13 16:32:00 87 mm[Hg] Unive rsity of [facility] Heart rate 2021-05-13 16:32:00 71 /min [facility] Body temperature 2021-05-13 16:32:00 36.56 Anila [facility] 2021-05-13 16:32:00 16 /min [facility] Body height 2021-05-13 16:32:[address] [facility] Body weight 2021-05-13 16:32:[address] [facility] BMI 2021-05-13 16:32:00 23.85 kg/m2 [facility] Procedures Procedure Date / Time Performed Performing Clinician Sourc e POCT URINALYSIS W/O 2021-05-13 16:25:00 Gabriella Diaz Uni versity of [place] SPECIFIC GRAVITY [facility] POCT TEST 2021-05-13 16:24:00 Gabriella Diaz Uni verslisha of [facility] Encounters Start End Encounter Admission Attending Care Care Encounter Source Date/Time Date/Time Type Type Clinicians Facility Department ID 2021-08-16 2021-08-16 Outpatient R [facility] [id number] Univers 08:30:00 08:30:00 [id number] ity [facility] 2021-08-16 2021-08-16 Outpatient R [facility] [id number] Univers 08:30:00 08:30:00 ity [facility] 2021-05-18 2021-05-18 Outpatient R RUPA [facility] [id number] Univers 08:00:00 09:03:05 GABRIELLA husain o f [facility] 2021-05-18 2021-05-18 Nurse Visit, Justin-Rmchp Nurse [facility] [id number] Univers 08:00:00 09:03:05 Visit Akinsirene Gabriella C PUBLIC AFFAIRS MANAGER [id number] ity of REGIONAL [id number] Cristóbal as MATERNAL [id number] [facility] ical & CHILD [address] [place] [address] 2021-05-18 2021-05-18 Outpatient R [facility] [id number] Univers 08:00:00 08:00:00 [id number] ity [facility] 2021-05-18 2021-05-18 Outpatient R [facility] [id number] Univers 07:45:00 07:45:00 ity of [facility] 2021-05-17 2021-05-[address] [facility] [id number] Univers 00:00:00 00:00:00 Gabriella C PUBLIC AFFAIRS MANAGER [id number] ity of REGIONAL [id number] Cristóbal as MATERNAL [id number] [facility] & CHILD [address] [place] [address] 2021-05-13 2021-05-13 Initial Akinarceliape, [facility] [id number] Univers 10:00:00 11:28:35 Gabriella C PUBLIC AFFAIRS MANAGER [id number] ity of Visit REGIONAL [id number] Cristóbal as MATERNAL [id number] [facility] & CHILD [address] [place] [address] 2020-10-28 2020-10-28 [facility] [id number] 09:51:19 11:12:43 Gabriella C PUBLIC AFFAIRS MANAGER [id number] Visit REGIONAL [id number] MATERNAL [id number] & CHILD [address] [place] [address] 2020-10-28 2020-10-28 Orders Doctor VENEGAS [id number] 00:00:00 00:00:00 Only Unassigned, ERINN [id number] Blossom [facility] [id number] 2018-11-20 2018-11-20 [facility] [id number] 13:30:[address] 13:30:[address] [facility] Medicine Medicine Outpati ent Clinics Results Test Description Test Time Test Comments Results Result Comments Source POCT URINALYSIS W/O SPECIFIC GRAVITY 2021-05-13 16:25:00 Test Item Value Reference Range Interpretation Comme nts POCT PH U (test code = 3254) 5 mg/dl 5-8 POCT U LEUK EST (test code = 3263) 1+ Negative - Negative POCT U NIT (test code = 3262) Neg Negative - Negative POCT U PROT (test code = 3259) Trace Negative - Negative POCT U GLU (test code = 3256) Neg Negative - Negative POCT U KETONE (test code = 3258) None Negative - Negative POCT U BLD (test code = 3257) Trace Negative - Negative [id number] 16:24:00 Test Item Value Reference Range Interpretation Comments POCT PREG (test code = 1605) Positive On board controls acceptable with C Yes Line (test code = 3574) POCT PREG LOT # (test code = 3575) POCT PREG TEST DATE (test code = 3576) [facility]
[2021-05-18 12:08] LABS: Urine Blood 2+ (Negative); Urine Glucose Negative (Negative); Urine Protein Negative (Negative); Urine Specific Gravity 1.015 (1.005-1.030); Urine pH 7.5 (5.0-7.0)
--- NOTE | 2021-05-18 12:24 | RAD REPORT ---
EXAM DESCRIPTION: US - Transvaginal OB - 05/18/2021 12:08 pm CLINICAL HISTORY: VAGINAL BLEEDING COMPARISON: Transvaginal OB dated 10/30/2020 FINDINGS: No IUP identified. The uterus measures 6.2 cm in long axis. The right ovary measures 2.3 x 0.8 x 0.8 cm with volume of 0.8 mL. The left ovary measures 2.4 x 2.9 x 2.2 cm with volume of 7.9 mL. Bilateral ovarian blood flow is present. No free fluid identified. IMPRESSION: No normal IUP identified. Therefore, cannot exclude early normal IUP, early ectopic, or failed first trimester .
[2021-05-18 12:25] LABS: Urine Specific Gravity/Preg 1.015 (1.005-1.030)
[2021-05-18 13:11] LABS: Absolute Lymphocytes (CBC) 1.8 K/uL (0.7-4.9); Hematocrit 41.3 % (36.0-45.0); Lymphocytes % 19.8 % (15.3-44.8); MPV 8.4 fL (7.6-11.3); RBC Red Blood Cell Count 4.51 M/uL (3.86-4.86)
[2021-05-18 13:25] LABS: BUN Blood Urea Nitrogen 7 mg/dL (7-18); Bicarbonate 25 mmol/L (21-32); Glucose Level 97 mg/dL (74-106); Potassium 3.6 mmol/L (3.5-5.1); Sodium Level 139 mmol/L (136-145)
[2021-05-18 14:03] LABS: HCG, Quantitative 28 mIU/mL (1-3)
--- NOTE | 2021-05-18 14:22 | ER ---
Nurse's Notes [facility] Name: Ceci Harrell Age: 31 yrs Sex: Female : 1990 Arrival Date: 05/18/2021 Time: 10:58 Bed 9 Private MD: Diagnosis: Threatened Presentation: 05/18 11:12 Chief complaint: Patient states: Pt reports she is 5 weeks . Was recently ss diagnosed with gonorrhea at [facility] and was given a Rocephin injection. Pt reports that when she got home, she used the restroom and noticed spotting on the toilet paper. Coronavirus screen: Client denies travel out of the [place] in the last 14 days. Ebola Screen: Patient denies exposure to infectious person. Patient denies travel to an Ebola-affected area in the 21 days before illness onset. Initial Sepsis Screen: Does the patient meet any 2 criteria? No. Patient's initial sepsis screen is negative. Does the patient have a suspected source of infection? No. Patient's initial sepsis screen is negative. Risk Assessment: Do you want to hurt yourself or someone else? Patient reports no desire to harm self or others. 11:12 Method Of Arrival: Ambulatory ss 11:12 Acuity: KYA 3 ss 12:59 Onset of symptoms was May 18, 2021. nowak Triage Assessment: 12:57 General: Appears in no apparent distress. Behavior is calm, cooperative. Pain: Denies nowak pain. : Reports vaginal bleeding that is spotty. 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 - Social history:: Smoking status: Patient/guardian denies using tobacco, Stopped _ months ago .5. Screenin:56 Abuse screen: Denies threats or abuse. Denies injuries from another. Nutritional nowak screening: No deficits noted. Tuberculosis screening: No symptoms or risk factors identified. Fall Risk None identified. Assessment: 12:59 Obstetrical Assessment: General assessment: awake and alert. nowak Vital Signs: 11:12 BP 122 / 83; Pulse 90; Resp 16; Temp 98.0(TE); Pulse Ox 100% on R/A; Weight 59.87 kg; ss Height 5 ft. 2 in. (157.48 cm); Pain 0/10; 13:28 BP 108 / 64; Pulse 72; Resp 18; Pulse Ox 100% on R/A; nowak 11:12 Body Mass Index 24.14 (59.87 kg, 157.48 cm) ss Vitals: 12:58 Heart Tones unable to detect pt est 5 weeks preg.. nowak ED Course: 10:58 Patient arrived in ED. mr 11:15 Triage completed. ss 11:16 Arm band placed on right wrist. ss 11:19 Pati Lyon FNP-C [facility] kb 11:19 Julio Killian MD is Attending Physician. kb 12:08 Transvaginal Ob In Process Unspecified. EDMS 12:56 Patient has correct armband on for positive identification. nowak 12:56 No provider procedures requiring assistance completed. Inserted saline lock: 20 gauge nowak antecubital area, using aseptic technique. 13:21 Abo/rh Typing Sent. nowak 13:21 Basic Metabolic Panel Sent. nowak 14:27 IV discontinued, intact, Pressure dressing applied. nowak Administered Medications: No medications were administered Point of Care Testing: Urine : 12:57 hCG Reading: Positive; nowak Outcome: 14:22 Discharge ordered by . kb 14:27 Discharged to home ambulatory. nowak 14:27 Condition: good 14:27 Discharge instructions given to patient. 14:27 Patient left the ED. nowak Signatures: Dispatcher [employer] EDMS Pati Lyon FNP-C FNP-Ckb Inez Coleman Emily Amaya, RN RN Ailyn-StageIdalia dotson RN RN nowak
--- NOTE | 2021-05-18 14:22 | EDPHYS ---
Physician Documentation [facility] Name: Ceci Harrell Age: 31 yrs Sex: Female : 1990 Arrival Date: 05/18/2021 Time: 10:58 Bed 9 Private MD: ED Physician Julio Killian HPI: 05/18 12:56 This 31 yrs old Female presents to ER via Ambulatory with complaints of Vaginal kb Bleeding, + Preg <12wks. 12:56 The patient presents to the emergency department with vaginal bleeding, described as kb spotting. The estimated gestational age is 5 weeks. course: care: at a clinic. Previous pregnancies: in previous pregnancies patient has had. Associated signs and symptoms: Pertinent positives: vaginal bleeding, Pertinent negatives: abdominal pain, chest pain, diarrhea, dysuria, fever, frequency, nausea, ruptured membranes, seizure, shortness of breath, vaginal discharge, vomiting. The patient has not experienced similar symptoms in the past. The patient has not recently seen a physician. 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 - Social history:: Smoking status: Patient/guardian denies using tobacco, Stopped _ months ago .5. ROS: 12:55 Constitutional: Negative for fever, chills, and weight loss. kb 12:55 : Positive for vaginal bleeding. 12:55 All other systems are negative. Exam: 12:55 Constitutional: This is a well developed, well nourished patient who is awake, alert, kb and in no acute distress. Head/Face: Normocephalic, atraumatic. ENT: Moist Mucous membranes Respiratory: Respirations even and unlabored. No increased work of breathing. Talking in full sentences Abdomen/GI: Soft, non-tender. No distention Skin: Warm, dry with normal turgor. Normal color. MS/ Extremity: Pulses equal, no cyanosis. Neurovascular intact. Full, normal range of motion. Neuro: Awake and alert, GCS 15, oriented to person, place, time, and situation. Moves all extremities. Normal gait. Psych: Awake, alert, with orientation to person, place and time. Behavior, mood, and affect are within normal limits. Vital Signs: 11:12 BP 122 / 83; Pulse 90; Resp 16; Temp 98.0(TE); Pulse Ox 100% on R/A; Weight 59.87 kg; ss Height 5 ft. 2 in. (157.48 cm); Pain 0/10; 13:28 BP 108 / 64; Pulse 72; Resp 18; Pulse Ox 100% on R/A; nowak 11:12 Body Mass Index 24.14 (59.87 kg, 157.48 cm) ss MDM: 11:19 Patient medically screened. kb 12:56 Data reviewed: vital signs, nurses notes. Data interpreted: Pulse oximetry: on room air kb is 100 %. Interpretation: normal. 14:21 Counseling: I had a detailed discussion with the patient and/or guardian regarding: the kb historical points, exam findings, and any diagnostic results supporting the discharge/admit diagnosis, lab results, radiology results, the need for outpatient follow up, an OB/Gyne specialist, to return to the emergency department if symptoms worsen or persist or if there are any questions or concerns that arise at home. 05/18 11:27 Order name: Abo/rh Typing 05/18 11:27 Order name: Basic Metabolic Panel 05/18 11:27 Order name: CBC with Diff; Complete Time: 13:14 kb 05/18 11:27 Order name: Quantitative Hcg; Complete Time: 14:21 kb 05/18 11:27 Order name: ABO/RH typing; Complete Time: 13:51 EDCT 05/18 11:27 Order name: Basic Metabolic Panel; Complete Time: 14:21 EDCT 05/18 11:27 Order name: IV Saline Lock; Complete Time: 13:21 kb 05/18 11:27 Order name: Labs collected and sent; Complete Time: 13:21 kb 05/18 11:27 Order name: NPO; Complete Time: 13:21 kb 05/18 11:27 Order name: Urine Dipstick-Ancillary (obtain specimen); Complete Time: 12:18 kb 05/18 11:27 Order name: Urine Test (obtain specimen); Complete Time: 13:21 kb 05/18 11:27 Order name: US Transvaginal Ob; Complete Time: 12:28 kb 05/18 12:08 Order name: Urine Dipstick-Ancillary; Complete Time: 12:09 EDMS 05/18 12:09 Order name: Test Urine - POC; Complete Time: 12:28 [facility] Administered Medications: No medications were administered Point of Care Testing: Urine : 12:57 hCG Reading: Positive; nowak Disposition: 15:37 Co-signature as Attending Physician, Julio Killian MD I agree with the assessment and rn plan of care. Attestation: The patient's history, exam findings, diagnostics, and a summary of any interventions or procedures was reviewed in detail with Pati QUINTERO. Disposition Summary: 05/18/21 14:22 Discharge Ordered Location: Home kb Condition: Stable kb Diagnosis - Threatened kb Followup: kb - With: Emergency Department - When: As needed - Reason: Worsening of condition Followup: kb - With: Private Physician - When: 2 - 3 days - Reason: Recheck today's complaints, Continuance of care, Re-evaluation by your physician Discharge Instructions: - Discharge Summary Sheet kb - Threatened Miscarriage, [id number] kb - Vaginal Bleeding During , First Trimester, [id number] kb Forms: - Medication Reconciliation Form kb - Thank You Letter kb - Antibiotic Education kb - Prescription Opioid Use kb Signatures: Dispatcher [employer] SAPPHIRECT Pati Lyon FNP-C FNP-Julio Long MD MD rn Smirch, Shelby, RN RN
[2021-05-18 14:40] VITALS: TEMP 98; O2SAT 100
[2021-05-18 14:42] VITALS: BP 108/64
== END 2021-05-18 14:27 | disposition home or self-care (01) ==
LOC: ER 10:54
DX: O20.0 Threatened abortion (principal); Z3A.01 Less than 8 weeks gestation of pregnancy
CPT/HCPCS: 36415; 76817; 80048; 81003; 81025; 84702; 85025; 86900; 86901; 99284

== ENCOUNTER 2021-12-28 13:04 | Emergency (ER) | payer OTHER ==
--- OUTSIDE RECORDS SUMMARY | 2021-12-28 13:07 | XMS REPORT | Continuity of Care Document ---
:1990 Author Organization [facility] t Address [address] [place] [address] [address] [place] [address] Care Team Providers Name Role Phone GABRIELLA DIAZ Primary Care Physician Unavailable GABRIELLA DIAZ Attending Clinician Unavailable CARMELO LOREDO Attending Clinician Unavailable Gabriella Durbin Attending Clinician [phone] Doctor Unassigned, [employer] Attending Clinician Unavailable Payers Payer Name Policy Type Policy Number Effective Date Expiration Date Mart MCGILL [id number] 2016 HEALTH 00:00:00 Problems Condition Condition Condition Status Onset Resolution Last Treating Co mments Source Name Details Category Date Date Treatment Clinician Date Vaginal Vaginal Disease Active Univers bleeding bleeding 05-19 ity of in in 00:00: [place] [facility] Gonorrhea, Gonorrhea, Disease Active Overview : Univers current current 05-17 [place] it[place] o f [place]: [place] Medical might be Branch different from the original. pending Tobacco Tobacco Disease Active 2020-05 Overview: Univ ers use in use in Formatt[place] ity of 00:00: [place] 00 note Medical might be Branch different from the original. Reports quit x6 days ago History of History of Disease Active 2020-05 U nivers depression depression it y of 00:00: [address] Branch Susceptibl Susceptibl Disease Active Overview : Univers e to e to 6-18 Formatt[place] ity of varicella varicella 00:00: [place] (non-immun (non-immun 00 note Me dical e), e), might be Branch currently currently different from the original. Address pp Supervisio Supervisio Disease Active U nivers n of n of 17 ity of high[place]risk [place] [facility] Multiparit Multiparit Disease Active U nivers y y 6-17 ity of 00:00: [address] History of History of Disease Active U nivers miscarriag miscarriag 17 it y of e e 00:00: [address] Molluscum Molluscum Disease Active Uni vers contagiosu contagiosu 06-19 it y of m m 00:00: [address] Encounter Encounter Diagnosis Active C ommon for for Spirit general [facility] adult adult [facility] examinatio examinatio Me dical n without n without Cent er abnormal abnormal findings findings Tobacco Tobacco Diagnosis Active Commo n abuse abuse Spirit counseling counseling - [facility] Allergies, Adverse Reactions, Alerts Allergy Allergy Status Severity Reaction(s) Onset Inactive Treating Comm ents Source Name Type Date Date Clinician NO KNOWN Drug Active Univers ALLERGIE Class ity of S [facility] [place] Social History Social Habit Start Date Stop Date Quantity Comments Source ASSERTION 2021-04-26 [facility] 00:00:[address] [facility] [place] Exposure to Not sure [facility] SARS-CoV-2 [facility] (event) Branch Alcohol intake 2021-06-24 2021-06-24 Ex-drinker University 00:00:00 00:00:00 (finding) [facility] [place] History of 2021-05-07 Smoker [facility] of tobacco use 00:00:[address] [facility] [place] Tobacco use and 2020-10-28 2020-10-28 Never used Universit y of exposure 00:00:00 00:00:[address] [facility] [place] Sex Ass[birth year] At [birth year] Universit y of 00:00:00 00:00:[address] [facility] [place] Smoking Status Start Date Stop Date Source Former smoker 2020-10-28 00:00:00 2020-10-28 00:00:00 [facility] Branch Medications Ordered Filled Start Stop Current Ordering Indication Dosage Frequency Signature Comments Components Source Medication Medication Date Date Medication? Clinician (SIG) Name Name 2020-05 Yes [id number] 1{tbl} Take 1 U nivers multivitami 2-31 tablet by ity of n ( 00:00: mouth [place] VITAMIN) 00 daily. Medical tablet Branch foLIC acid 2020-05 Yes [id number] 1mg Take 1 U nivers 1 mg tablet 2-31 tablet by ity of 00:00: mouth [place] 00 daily. Medical Branch 2020-05 Yes [id number] 1{tbl} Take 1 U nivers multivitami 2-31 tablet by ity of n ( 00:00: mouth [place] VITAMIN) 00 daily. Medical tablet Branch foLIC acid 2020-05 Yes [id number] 1mg Take 1 U nivers 1 mg tablet 2-31 tablet by ity of 00:00: mouth [place] 00 daily. Medical Branch 2020-05 Yes [id number] 1{tbl} Take 1 U nivers multivitami 2-31 tablet by ity of n ( 00:00: mouth [place] VITAMIN) 00 daily. Medical tablet Branch foLIC acid 2020-05 Yes [id number] 1mg Take 1 U nivers 1 mg tablet 2-31 tablet by ity of 00:00: mouth [place] 00 daily. Medical Branch Yes [id number] 1{tbl} Take 1 U nivers multivitami 6-17 tablet by ity of n ( 00:00: mouth [place] VITAMIN) 00 daily. Medical tablet Branch Yes [id number] 1{tbl} Take 1 U nivers multivitami 6-17 tablet by ity of n ( 00:00: mouth [place] VITAMIN) 00 daily. Medical tablet Branch Yes [id number] 1{tbl} Take 1 U nivers multivitami 6-17 tablet by ity of n ( 00:00: mouth [place] VITAMIN) 00 daily. Medical tablet Branch 1 1 Yes Yvan Diop defined [facility] - [facility] Vital Signs Vital Name Observation Time Observation Value Comments Source Systolic blood 2021-06-24 15:02:00 114 mm[Hg] Univer sity of pressure [facility] Diastolic blood 2021-06-24 15:02:00 73 mm[Hg] Unive rsity [facility] Heart rate 2021-06-24 15:02:00 71 /min [facility] Body temperature 2021-06-24 15:02:00 36.11 Anila [facility] Respiratory rate 2021-06-24 15:02:00 16 /min [facility] Body height 2021-06-24 15:02:00 157.5 cm [facility] Body weight 2021-06-24 15:02:00 59.875 kg [facility] BMI 2021-06-24 15:02:00 24.14 kg/m2 [facility] Procedures Procedure Date / Time Performed Performing Clinician Sourpreston e POCT TEST 2021-06-24 16:39:00 Gabriella Diaz [facility] GC & CHLAMYDIA 2021-06-24 16:35:00 Gabriella Diaz [facility] Encounters Start End Encounter Admission Attending Care Care Encounter Source Date/Time Date/Time Type Type Clinicians Facility Department ID 2022-05-15 2022-05-15 Outpatient Anjali DIAZ [facility] [id number] Univers 09:00:00 09:00:00 GABRIELLA [id number] lisha o f [facility] 2022-05-15 2022-05-15 Outpatient Anjali DIAZ [facility] [id number] Univers 09:00:00 09:00:00 GABRIELLA husain o f [facility] [place] 2021-12-30 2021-12-30 Outpatient Anjali LOREDO [facility] [id number] Univers 13:30:00 13:30:00 [facility] [id number] [facility] 2021-12-28 2021-12-28 Outpatient Anjali LOREDO [facility] [id number] Univers 14:15:00 14:15:00 CARMELO [id number] [facility] 2021-12-28 2021-12-28 Outpatient Anjali LOREDO [facility] [id number] Univers 14:15:00 14:15:00 CARMELO ity [facility] 2021-08-16 2021-08-16 Outpatient R AKINSIPE, [facility] [id number] Univers 08:30:00 08:30:00 GABRIELLA husain o [facility] 2021-06-28 2021-06-28 [facility] [id number] Univers 00:00:00 00:00:00 Gabriella C ALARM ADJUSTER [id number] ity of REGIONAL [id number] Cristóbal as MATERNAL [id number] [facility] ical & CHILD [address] [place] [address] 2021-06-24 2021-06-24 Outpatient R ARCHANAPE, [facility] [id number] Univers 08:15:00 10:02:47 GABRIELLA husain o [facility] 2021-06-24 2021-06-24 Routine Akinsipe, [facility] [id number] Univers 08:15:00 10:02:47 Gabriella C ALARM ADJUSTER [id number] ity of Visit REGIONAL [id number] Cristóbal as MATERNAL [id number] [facility] & CHILD [address] [place] [address] 2021-06-24 2021-06-24 Outpatient R ARCHANAPE, [facility] [id number] Univers 08:15:00 08:15:00 GABRIELLA [id number] itzach o [facility] 2021-05-23 2021-05-23 Outpatient R AKINSIPE, [facility] [id number] Univers 08:30:00 08:30:00 GABRIELLA itzach o [facility] 2021-05-20 2021-05-20 Telephone Akinsipe, [facility] [id number] Univers 00:00:00 00:00:00 Gabriella C ALARM ADJUSTER [id number] ity of REGIONAL [id number] Cristóbal as MATERNAL [id number] [facility] & CHILD [address] [place] [address] 2021-05-19 2021-05-19 Outpatient R AKINSIPE, [facility] [id number] Univers 08:00:00 08:00:00 GABRIELLA husain o f [facility] [place] 2020-10-28 2020-10-28 Initial Akinsipe, [facility] [id number] 09:51:19 11:12:43 Gabriella Ly ALARM ADJUSTER [id number] Visit [facility] [id number] MATERNAL [id number] & CHILD [address] [place] [address] 2020-10-28 2020-10-28 Orders Doctor THEO [id number] 00:00:00 00:00:00 Only Unassigned, ERINN [id number] [employer] [facility] [id number] 2018-11-20 2018-11-20 Outpatient Braznevaeh Che[place]t 26 [id number] Common 13:30:00 13:30:00 [facility] Results Test Description Test Time Test Comments Results Result Comments Source POCT TEST 2021-06-24 16:39:00 Test Item Value Reference Range Interpretation Comme nts POCT PREG (test code = 1605) Negative On board controls acceptable with C Line (test code = 3574) Yes POCT PREG LOT # (test code = 3575) POCT PREG TEST DATE (test code = 3576) [facility]
[2021-12-28 14:06] LABS: Urine Blood 2+ (Negative); Urine Glucose Negative (Negative); Urine Protein Negative (Negative); Urine Specific Gravity >=1.030 (1.005-1.030); Urine pH 5.5 (5.0-7.0)
[2021-12-28 14:12] LABS: Hematocrit 42.8 % (36.0-45.0); MCV 89.8 fL (80-100); MPV 8.3 fL (7.6-11.3); RBC Red Blood Cell Count 4.77 M/uL (3.86-4.86)
[2021-12-28 14:29] LABS: Potassium 3.4 mmol/L (3.5-5.1)
--- NOTE | 2021-12-28 15:33 | RAD REPORT ---
EXAM DESCRIPTION: US - Transvaginal OB - 12/28/2021 3:13 pm CLINICAL HISTORY: pelvic pain, vaginal bleeding COMPARISON: Transvaginal OB dated 05/18/2021 FINDINGS: Uterus is retroflexed. Endometrium is thickened but there is no defined gestational sac or sac remnant. No hematoma, mass or other suspicious finding within the endometrial cavity. No myometr ial mass is identifiable. Uterus is approximately 8.1 x 4.8 x 5.3 cm. Prominent adnexal vessels are present. Both ovaries are identified. Blood flow seen within the stroma . Scattered follicles are present. No adnexal abnormality seen suspicious for ectopic . No b lood or fluid seen in the cul de sac. IMPRESSION: No intrauterine gestational sac or sac remnant identifiable. No hematoma or focal endome trial finding. No adnexal mass or other finding suspicious for ectopic . Follow-up sonography could be performed if serial beta HCG values indicate ongoing .
--- NOTE | 2021-12-28 15:48 | EDPHYS ---
Physician Documentation [facility] Name: Ceci Harrell Age: 31 yrs Sex: Female : 1990 Arrival Date: 12/28/2021 Time: 13:06 Bed 13 Private MD: ED Physician Mehul Guillermo HPI: 12/28 13:29 This 31 yrs old Female presents to ER via Ambulatory with complaints of Abdominal jmm Cramping, Vaginal Bleeding, + Preg <12wks. 13:29 The patient presents to the emergency department with vaginal bleeding. The estimated [facility] gestational age is 5 weeks. course: care: private OB physician. Associated signs and symptoms: Pertinent positives: vaginal bleeding, Pertinent negatives: fever, shortness of breath. The patient has experienced similar episodes in the past, several times. 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 - Immunization history:: Adult Immunizations up to date. - Social history:: Smoking status: Patient denies any tobacco usage or history of. ROS: 13:29 Constitutional: Negative for fever, chills, and weight loss, Eyes: Negative for injury, jmm pain, redness, and discharge, ENT: Negative for injury, pain, and discharge, Neck: Negative for injury, pain, and swelling, Cardiovascular: Negative for chest pain, palpitations, and edema, Respiratory: Negative for shortness of breath, cough, wheezing, and pleuritic chest pain, Abdomen/GI: Negative for abdominal pain, nausea, vomiting, diarrhea, and constipation, Back: Negative for injury and pain, Skin: Negative for injury, rash, and discoloration, Neuro: Negative for headache, weakness, numbness, tingling, and seizure, Psych: Negative for depression, anxiety, suicide ideation, homicidal ideation, and hallucinations. 13:29 : Positive for urinary symptoms, vaginal bleeding. 13:29 All other systems are negative. Exam: 13:29 Constitutional: This is a well developed, well nourished patient who is awake, alert, jmm and in no acute distress. Head/Face: atraumatic. Eyes: EOMI, no conjunctival erythema appreciated ENT: Moist Mucus Membranes Neck: Trachea midline, Supple Chest/axilla: Normal chest wall appearance and motion. Cardiovascular: Regular rate and rhythm. No edema appreciated Respiratory: Normal respirations, no respiratory distress appreciated Abdomen/GI: Non distended Back: Normal ROM Skin: General appearance color normal MS/ Extremity: Moves all extremities, no obvious deformities appreciated, no edema noted to the lower extremities Neuro: Awake and alert Psych: Behavior is normal, Mood is normal, Patient is cooperative and pleasant Vital Signs: 13:23 BP 103 / 73; Pulse 84; Resp 18; Temp 98.6; Pulse Ox 100% on R/A; Weight 58.97 kg; [facility] Height 5 ft. 6 in. (167.64 cm); Pain 8/10; 14:00 BP 102 / 79; Pulse 79; Resp 16; Pulse Ox 99% on R/A; kr3 16:09 BP 107 / 66; Pulse 73; Resp 16; Pulse Ox 100% on R/A; kr3 13:23 Body Mass Index 20.98 (58.97 kg, 167.64 cm) [facility] MDM: 13:29 Patient medically screened. [facility] 15:46 Data reviewed: vital signs, nurses notes. Counseling: I had a detailed discussion with henny the patient and/or guardian regarding: the historical points, exam findings, and any diagnostic results supporting the discharge/admit diagnosis, lab results, radiology results, the need for outpatient follow up, to return to the emergency department if symptoms worsen or persist or if there are any questions or concerns that arise at home. 12/28 13:36 Order name: Abo/rh Typing; Complete Time: 14:36 [facility] 12/28 13:36 Order name: Basic Metabolic Panel; Complete Time: 14:36 [facility] 12/28 13:36 Order name: CBC with Diff; Complete Time: 14:36 [facility] 12/28 13:36 Order name: Quantitative Hcg; Complete Time: 14:36 [facility] 12/28 14:06 Order name: Urine Dipstick-Ancillary; Complete Time: 14:09 [facility] 12/28 13:36 Order name: IV Saline Lock; Complete Time: 13:54 [facility] 12/28 13:36 Order name: Labs collected and sent; Complete Time: 13:55 [facility] 12/28 13:36 Order name: NPO; Complete Time: 13:56 [facility] 12/28 13:36 Order name: Urine Dipstick-Ancillary (obtain specimen); Complete Time: 14:05 jm 12/28 15:14 Order name: Transvaginal OB; Complete Time: 15:35 EDMS Administered Medications: No medications were administered Disposition: 17:59 Co-signature as Attending Physician, Mehul Guillermo DO I was immediately available on-site ms3 in the Emergency Department for consultation in the care of the patient.. Disposition Summary: 12/28/21 15:47 Discharge Ordered Location: Home jm Condition: Stable jm Diagnosis - Threatened jmm Followup: jmm - With: Private Physician - When: 2 - 3 days - Reason: Recheck today's complaints, Continuance of care, Re-evaluation by your physician Discharge Instructions: - Discharge Summary Sheet jm - Threatened Miscarriage jm Forms: - Medication Reconciliation Form [facility] - Thank You Letter jmm - Antibiotic Education jmm - Prescription Opioid Use [facility] Signatures: Dispatcher [employer] EDMS Lan Cook PA PA jmm Sims, Marcus, DO DO ms3 Imelda Marin, RN RN jh5 Corrections: (The following items were deleted from the chart) 15:14 14:37 1st Trimest Single 1st Fetus+US.RAD.BRZ ordered. EDMS EDMS
--- NOTE | 2021-12-28 15:48 | ER ---
Nurse's Notes [facility] Name: Ceci Harrell Age: 31 yrs Sex: Female : 1990 Arrival Date: 12/28/2021 Time: 13:06 Bed 13 Private MD: Diagnosis: Threatened Presentation: 12/28 13:23 Chief complaint: Patient states: vaginal bleeding, less than 12 weeks left groin pain. [facility] Coronavirus screen: Vaccine status: Patient reports being unvaccinated. Client denies travel out of the [place] in the last 14 days. Ebola Screen: Patient negative for fever greater than or equal to 101.5 degrees Fahrenheit, and additional compatible Ebola Virus Disease symptoms Patient denies exposure to infectious person. Patient denies travel to an Ebola-affected area in the 21 days before illness onset. Initial Sepsis Screen: Does the patient meet any 2 criteria? No. Patient's initial sepsis screen is negative. Does the patient have a suspected source of infection? No. Patient's initial sepsis screen is negative. Risk Assessment: Do you want to hurt yourself or someone else? Patient reports no desire to harm self or others. Onset of symptoms was December 27, 2021. 13:23 Method Of Arrival: Ambulatory [facility] 13:23 Acuity: KYA 3 [facility] Triage Assessment: 13:26 General: Appears uncomfortable, slender, well groomed, well developed, Behavior is [facility] calm, cooperative, appropriate for age. Pain: Complains of pain in abdomen. GI: Reports lower abdominal pain, cramping. 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 - Social history:: Smoking status: Patient denies any tobacco usage or history of. Screenin:03 Abuse screen: Denies threats or abuse. Nutritional screening: No deficits noted. 3 Tuberculosis screening: No symptoms or risk factors identified. Fall Risk IV access (20 points). Total Castillo Fall Scale indicates No Risk (0-24 pts). Assessment: 13:56 General: Appears. General: Appears in no apparent distress. comfortable, Behavior is kr3 calm, cooperative, appropriate for age. 16:10 GI: Bowel sounds present X 4 quads. Abd is soft Abd is non tender X 4 quads. kr3 Vital Signs: 13:23 BP 103 / 73; Pulse 84; Resp 18; Temp 98.6; Pulse Ox 100% on R/A; Weight 58.97 kg; 5 Height 5 ft. 6 in. (167.64 cm); Pain 8/10; 14:00 BP 102 / 79; Pulse 79; Resp 16; Pulse Ox 99% on R/A; kr3 16:09 BP 107 / 66; Pulse 73; Resp 16; Pulse Ox 100% on R/A; kr3 13:23 Body Mass Index 20.98 (58.97 kg, 167.64 cm) 5 ED Course: 13:06 Patient arrived in ED. rg4 13:15 Lan Cook PA is PHCP. shahid 13:16 Mehul Guillermo DO is Attending Physician. m 13:16 Arm band placed on Patient placed in an exam room, on a stretcher. 1 13:26 Triage completed. 5 13:32 Virginia Marmolejo, RN is Primary Nurse. kr3 13:40 Inserted saline lock: 20 gauge in right antecubital area, using aseptic technique. kr3 Blood collected. 14:02 Bed in low position. Call light in reach. Side rails up X 1. kr3 15:14 Transvaginal OB In Process Unspecified. EDMS 16:10 No provider procedures requiring assistance completed. IV discontinued, intact, kr3 bleeding controlled, No redness/swelling at site. Pressure dressing applied. Administered Medications: No medications were administered Medication: 16:11 VIS not applicable for this client. kr3 Outcome: 15:47 Discharge ordered by . [facility] 16:10 Discharged to home ambulatory. kr3 16:10 Condition: stable 16:10 Discharge instructions given to patient, Instructed on discharge instructions, follow up and referral plans. Demonstrated understanding of instructions, follow-up care. 16:11 Patient left the ED. kr3 Signatures: Dispatcher [employer] EDMS Lan Cook PA PA jmm Garcia, Rubi rg4 Shad Krueger RN RN 1 Imelda Marin RN RN [facility] Virginia Marmolejo RN RN kr3
[2021-12-28 16:27] VITALS: TEMP 98.6
[2021-12-28 16:54] VITALS: BP 107/66; O2SAT 100
== END 2021-12-28 16:11 | disposition home or self-care (01) ==
LOC: ER 13:04
DX: O20.0 Threatened abortion (principal)
CPT/HCPCS: 36415; 76817; 80048; 81003; 84702; 85025; 86900; 86901

== ENCOUNTER 2022-01-05 11:59 | Emergency (ER) | payer OTHER ==
--- OUTSIDE RECORDS SUMMARY | 2022-01-05 12:11 | XMS REPORT | Continuity of Care Document ---
:1990 Author Organization [facility] [place] [facility] t Address [address] [place] [address] [address]. [address] [place] [address] Care Team Providers Name Role Phone Pcp, Patient Does Not Have A Primary Care Physician [phone] Nora Sultana RN Attending Clinician Unavailable Gabriella Durbin Attending Clinician [phone] Doctor Unassigned, [place] Attending Clinician Unavailable Payers Payer Name Policy Type Policy Number Effective Date Expiration Date S ource Problems Condition Condition Condition Status Onset Resolution Last Treating Co mments Source Name Details Category Date Date Treatment Clinician Date High risk High risk Disease Active Uni vers 8-19 ity of due to due to 00:00: [place] recurrent recurrent 00 Medi emeterio Bran [facility] loss, loss, first first trimester trimester Former Former Disease Active Univers tobacco tobacco 8-19 ity of use use 00:00: [address] Vaginal Vaginal Disease Active Univers bleeding bleeding 8-19 [place] early 00 [place] History of History of Disease Active 2020-05 U nivers depression depression 2-31 it y of 00:00: [address] Susceptibl Susceptibl Disease Active Overview : Univers e to e to 6-18 Formattin ity of varicella varicella 00:00: [place] of [place] (non-immun (non-immun 00 note Me dical e), e), might be Branch currently currently different from the original. Address pp Encounter Encounter Diagnosis Active [facility] for for [facility] adult adult [facility] examinatio examinatio Me dical n without n without Cent er abnormal abnormal findings findings Tobacco Tobacco Diagnosis Active Commo n abuse abuse Spirit counseling counseling - [facility] Allergies, Adverse Reactions, Alerts This patient has no known allergies or adverse reactions. Social History Social Habit Start Date Stop Date Quantity Comments Source ASSERTION 2021-12-07 [facility] 00:00:00 [facility] Exposure to 2021-12-20 2021-12-30 Not sure [facility] SARS-CoV-2 (event) 00:00:00 13:21:00 [facility] Cigarettes smoked 2021-12-30 2021-12-30 Univers ity of current (pack per 00:00:00 00:00:00 ) - Reported [place] Cigarette 2021-12-30 2021-12-30 University of pack-years 00:00:00 00:00:00 [facility] Tobacco use and 2021-12-30 2021-12-30 Smokeless Universit y of exposure 00:00:00 00:00:00 tobacco non-user [facility] Alcohol intake 2021-12-30 2021-12-30 .14 /d [facility] 00:00:00 00:00:00 [facility] History of tobacco 2021-10-26 Cigarette Smoker University of use 00:00:00 [facility] Sex Assigned At [birth year] Universit y of 00:00:00 00:00:00 [facility] Smoking Status Start Date Stop Date Source Ex-smoker 2021-12-30 00:00:00 2021-12-30 00:00:00 Universi ty [facility] Medications Ordered Filled Start Stop Current Ordering Indication Dosage Frequency Signature Comments Components Source Medication Medication Date Date Medication? Clinician (SIG) Name Name PROGESTERON Yes Apply to Un eva E 8-19 skin. ity of MICRONIZED 14:32: [place] TRANSDERMAL 25 Medical Branch 2020-05 Yes [id number] 1{tbl} Take 1 U nivers multivitami 2-31 tablet by ity of n ( 00:00: mouth [place] VITAMIN) 00 daily. Medical tablet Branch foLIC acid 2020-05 Yes [id number] 1mg Take 1 U nivers 1 mg tablet 2-31 tablet by ity of 00:00: mouth [place] 00 daily. Medical Branch Yes [id number] 1{tbl} Take 1 U nivers multivitami 6-17 tablet by ity of n ( 00:00: mouth [place] VITAMIN) 00 daily. Medical tablet Branch 1 1 Yes Yvan Diop defined [facility] Procedures This patient has no known procedures. Encounters Start End Encounter Admission Attending Care Care Encounter Source Date/Time Date/Time Type Type Clinicians Facility Department ID 2022-01-02 2022-01-[address] RIARTIE [id number] Univers 00:00:00 00:00:00 Secure Msg Nora Claros SENIOR SQL DEVELOPER [id number] ity [facility] [id number] Cristóbal as MATERNAL [id number] Med ical & CHILD [address] [place] [address] 2020-10-28 2020-10-28 Initial [place], [facility] [id number] 09:51:19 11:12:43 Gabriella Ly SENIOR SQL DEVELOPER [id number] Visit [facility] [id number] MATERNAL [id number] & CHILD [address] [place] [address] 2020-10-28 2020-10-28 Orders Doctor THEO [id number] 00:00:00 00:00:00 Only Unassigned, ERINN [id number] [place] [facility] [id number] 2018-11-20 2018-11-20 [id number] Common 13:30:00 13:30:00 [facility] Results This patient has no known results.
[2022-01-05 13:19] LABS: Urine Blood 1+ (Negative); Urine Glucose Negative (Negative); Urine Protein Negative (Negative)
[2022-01-05 13:19] LABS: Absolute Lymphocytes (CBC) 2.2 K/uL (0.7-4.9); Hematocrit 41.9 % (36.0-45.0); Lymphocytes % 23.8 % (15.3-44.8); MCV 90.1 fL (80-100); MPV 8.1 fL (7.6-11.3); RBC Red Blood Cell Count 4.65 M/uL (3.86-4.86)
--- NOTE | 2022-01-05 13:27 | RAD REPORT ---
EXAM DESCRIPTION: US - Transvaginal OB - 01/05/2022 1:07 pm CLINICAL HISTORY: with pelvic pain COMPARISON: December 28, 2021 FINDINGS: The uterus is retroverted measuring 8 x 4 x 6 centimeters. Heterogeneous fluid is present within the endometrium. A gestational sac not seen. A 2.3 centimeter hypo to isoechoic structure containing a sonolucent center is present within the rig ht adnexal abutting the right ovary. Right ovary otherwise appears normal. Left ovary normal in size and echotexture. Left adnexum unremarkable No significant free fluid IMPRESSION: Fluid within the endometrium probably blood without visualization of a gestational sac. 2.3 centimeter structure adjacent to the right ovary. This could either represent a cyst containing d ebris arising from the right ovary or an ectopic . These findings are indeterminate for an incomplete versus an ectopic . This all bill uld be correlated clinically and with serial beta HCG levels. Follow up endovaginal sonogram in 1 week should be helpful
[2022-01-05 13:32] LABS: Potassium 3.7 mmol/L (3.5-5.1)
[2022-01-05] MEDS ORDERED: PROMETHAZINE INJ 25 MG/ML AMP ONE (13:45)
[2022-01-05] MEDS ORDERED: HYDROCODONE/APAP 5/325 MG TAB ONE ×2 (13:45→14:33)
[2022-01-05 14:59] LABS: Urine Bacteria <20 /HPF (<20); Urine RBC <5 /HPF (None Seen)
[2022-01-05] MEDS ORDERED: MORPHINE 2 MG/ML SYR ONE ×3 (16:51→17:36)
--- NOTE | 2022-01-05 17:21 | ER ---
Nurse's Notes [facility] Name: Ceci Harrell Age: 31 yrs Sex: Female : 1990 Arrival Date: 01/05/2022 Time: 12:01 Bed 9 Private MD: Diagnosis: Other ectopic without intrauterine Presentation: 01/05 13:07 Chief complaint: Patient states: Pain to right side of back radiating to Right side of aa5 pelvis since yesterday, pt states "I've had pressure but yesterday the pain got worse, I've also been spotting and my doctor said it was vulva varicosities but yesterday I bleed for like an hour, I had a full pad and then it stopped, now it's only when I wipe". 13:07 Coronavirus screen: At this time, the client does not indicate any symptoms associated aa5 with coronavirus-19. Ebola Screen: Patient denies travel to an Ebola-affected area in the 21 days before illness onset. Initial Sepsis Screen: Does the patient meet any 2 criteria? No. Patient's initial sepsis screen is negative. Does the patient have a suspected source of infection? No. Patient's initial sepsis screen is negative. Risk Assessment: Do you want to hurt yourself or someone else? Patient reports no desire to harm self or others. Onset of symptoms was December 2021. 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 - Social history:: Smoking status: Patient reports the use of cigarette tobacco products, 2-3 cigarettes a day . Screenin:15 Abuse screen: Denies threats or abuse. Nutritional screening: No deficits noted. aa5 Tuberculosis screening: No symptoms or risk factors identified. Fall Risk None identified. Assessment: 13:07 General: Appears uncomfortable, Behavior is calm, cooperative. Pain: Complains of pain aa5 in right low back Pain radiates to right side of pelvis Pain currently is 8 out of 10 on a pain scale. Quality of pain is described as radiating, sharp, shooting, Pain began 1 day ago. Is continuous. Neuro: Level of Consciousness is awake, alert, obeys commands, Oriented to person, place, time, situation. Cardiovascular: Heart tones S1 S2 present Rhythm is regular. Respiratory: Airway is patent Respiratory effort is even, unlabored, Respiratory pattern is regular, symmetrical. GI: Abdomen is flat, non-distended, Bowel sounds present X 4 quads. Reports lower abdominal pain, nausea, Patient currently denies vomiting. : Reports vaginal bleeding that is spotty, when she wipes. EENT: No signs and/or symptoms were reported regarding the EENT system. Derm: Skin is pink, warm \\T\\ dry. Musculoskeletal: Range of motion: intact in all extremities. 13:42 Reassessment: Patient is alert, oriented x 3, equal unlabored respirations, skin aa5 warm/dry/pink. General: Appears uncomfortable. 14:32 Reassessment: Patient is alert, oriented x 3, equal unlabored respirations, skin aa5 warm/dry/pink. Reports nausea is better, reports pain has not improved. . 18:13 Reassessment: Patient appears in no apparent distress at this time. Patient is alert, iw oriented x 3, equal unlabored respirations, skin warm/dry/pink. Vital Signs: 13:09 BP 116 / 82; Pulse 80; Resp 16; Temp 98.2; Pulse Ox 100% on R/A; Pain 8/10; iw 13:10 Weight 61.23 kg (R); Height 5 ft. 2 in. (157.48 cm) (R); aa5 18:20 BP 122 / 74; Pulse 82; Resp 16; Pulse Ox 99% on R/A; Pain 3/10; bm7 13:10 Body Mass Index 24.69 (61.23 kg, 157.48 cm) aa5 ED Course: 12:01 Patient arrived in ED. am2 12:03 Mehul Guillermo DO is Attending Physician. ms3 13:07 Patient has correct armband on for positive identification. Bed in low position. Call aa5 light in reach. Side rails up X 1. Adult w/ patient. 13:10 Basic Metabolic Panel Sent. iw 13:10 CBC with Diff Sent. iw 13:11 Transvaginal OB In Process Unspecified. EDMS 13:42 Perla David, RN is Primary Nurse. aa5 13:48 Triage completed. aa5 17:06 Juanjose Muñoz MD is Referral Physician. ms3 18:20 No provider procedures requiring assistance completed. IV discontinued, intact, bm7 bleeding controlled, No redness/swelling at site. Pressure dressing applied. Administered Medications: 13:42 Drug: HYDROcodone-acetaminophen 5 mg-325 mg 1 tabs Route: PO; aa5 14:32 Follow up: Response: No adverse reaction aa5 13:42 Drug: Phenergan (promethazine) 12.5 mg Route: IM; Site: right gluteus; aa5 14:32 Follow up: Response: No adverse reaction aa5 14:32 Drug: HYDROcodone-acetaminophen 5 mg-325 mg 1 tabs Route: PO; aa5 18:20 Follow up: Response: Pain is decreased bm7 16:45 Drug: morphine 2 mg Route: IVP; Infused Over: 4 mins; Site: right antecubital; iw 18:19 Follow up: Response: Pain is decreased bm7 17:27 Drug: morphine 2 mg Route: IVP; Infused Over: 4 mins; Site: right antecubital; iw 18:19 Follow up: Response: Pain is decreased bm7 18:11 Drug: Methotrexate 75 mg Route: IM; Site: right ventrogluteal; iw 18:19 Follow up: Response: No adverse reaction bm7 Medication: 18:20 VIS not applicable for this client. bm7 Outcome: 17:20 Discharge ordered by . ms3 18:20 Discharged to home ambulatory, with family. bm7 18:20 Condition: good 18:20 Discharge instructions given to patient, family, Instructed on discharge instructions, follow up and referral plans. medication usage, Demonstrated understanding of instructions, follow-up care, medications, Prescriptions given X 1. 18:21 Patient left the ED. bm7 Signatures: Dispatcher [employer] EDMS Sis Doherty, RN BENSON iw Perla David, RN RN aa5 Karlie Keys am2 Mehul Guillermo, DO ms3 Lisset Martinez, RN RN bm7
--- NOTE | 2022-01-05 17:21 | EDPHYS ---
Physician Documentation [facility] Name: Ceci Harrell Age: 31 yrs Sex: Female : 1990 Arrival Date: 01/05/2022 Time: 12:01 Bed 9 Private MD: ED Physician Mehul Guillermo HPI: 01/05 13:46 This 31 yrs old Female presents to ER via Unassigned with complaints of right side pain ms3 6 wks preg. 13:46 The patient presents with abdominal pain Right flank pain. ms3 13:46 Onset: The symptoms/episode began/occurred yesterday. The symptoms do not radiate. ms3 Associated signs and symptoms: Pertinent positives: vaginal bleeding. The symptoms are described as crampy. Modifying factors: The symptoms are alleviated by nothing, the symptoms are aggravated by. Severity of pain: At its worst the pain was severe in the emergency department the pain is unchanged. 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 - Social history:: Smoking status: Patient reports the use of cigarette tobacco products, 2-3 cigarettes a day . ROS: 13:46 Constitutional: Negative for fever, and chills. Neck: Negative for injury, pain, and ms3 swelling, Cardiovascular: Negative for chest pain, and palpitations. Respiratory: Negative for shortness of breath, cough, wheezing, and pleuritic chest pain. 13:46 Skin: Negative for injury, rash, and discoloration, Psych: Negative for depression, anxiety, suicide ideation, homicidal ideation, and hallucinations. 13:46 Abdomen/GI: Positive for abdominal pain, nausea. Exam: 13:46 Constitutional: This is a well developed, well nourished patient who is awake, alert, ms3 and in no acute distress. Head/Face: Normocephalic, atraumatic. Neck: Trachea midline, no cervical lymphadenopathy. Supple, full range of motion without nuchal rigidity, or vertebral point tenderness. No Meningismus. Chest/axilla: Normal chest wall appearance and motion. Nontender with no deformity. Cardiovascular: Regular rate and rhythm with a normal S1 and S2. No gallops, murmurs, or rubs. Normal PMI, no JVD. No pulse deficits. Respiratory: Lungs have equal breath sounds bilaterally, clear to auscultation and percussion. No rales, rhonchi or wheezes noted. No increased work of breathing, no retractions or nasal flaring. 13:46 Abdomen/GI: Inspection: abdomen appears normal, Bowel sounds: normal, Palpation: moderate abdominal tenderness, in all quadrants, Rectal exam: Vital Signs: 13:09 BP 116 / 82; Pulse 80; Resp 16; Temp 98.2; Pulse Ox 100% on R/A; Pain 8/10; iw 13:10 Weight 61.23 kg (R); Height 5 ft. 2 in. (157.48 cm) (R); aa5 18:20 BP 122 / 74; Pulse 82; Resp 16; Pulse Ox 99% on R/A; Pain 3/10; bm7 13:10 Body Mass Index 24.69 (61.23 kg, 157.48 cm) aa5 MDM: 12:23 Patient medically screened. ms3 13:46 Data reviewed: vital signs, nurses notes. Counseling: I had a detailed discussion with ms3 the patient and/or guardian regarding: the historical points, exam findings, and any diagnostic results supporting the discharge/admit diagnosis, lab results, radiology results, the need for outpatient follow up, to return to the emergency department if symptoms worsen or persist or if there are any questions or concerns that arise at home. Special discussion: I discussed with the patient/guardian in detail that at this point there is no indication for admission to the hospital. It is understood, however, that if the symptoms persist or worsen the patient needs to return immediately for re-evaluation. 16:25 Physician consultation: Juanjose Muñoz MD was called at 16:15, was contacted at 16:15, ms3 regarding patient's condition, and will see patient in office, would like medications started, Methotrexate 75 mg IM, Discussed case with Dr Muñoz. Recommends Methotrexate 75 mg IM. Let patient know 70% success rate, but still may require surgery. Patient to also be made aware that she will require serial quantitative hCG levels until they return to 0.. 01/05 12:25 Order name: Basic Metabolic Panel; Complete Time: 15:41 ms3 01/05 12:25 Order name: CBC with Diff; Complete Time: 13:40 ms3 01/05 13:19 Order name: Urine Dipstick-Ancillary; Complete Time: 13:40 EDMS 01/05 13:19 Order name: Urine --Ancillary (enter results); Complete Time: 15:41 em1 01/05 13:19 Order name: Urine Culture ms3 01/05 13:20 Order name: Urine Microscopic Only; Complete Time: 15:41 ms3 01/05 13:11 Order name: Transvaginal OB; Complete Time: 13:40 EDMS 01/05 13:46 Order name: Add On-Lab aa5 01/05 13:48 Order name: HCG, Quantitative; Complete Time: 15:41 EDMS 01/05 12:25 Order name: IV Saline Lock; Complete Time: 13:09 ms3 01/05 12:25 Order name: Labs collected and sent; Complete Time: 13:10 ms3 01/05 12:25 Order name: NPO; Complete Time: 13:24 ms3 01/05 12:25 Order name: Urine Dipstick-Ancillary (obtain specimen); Complete Time: 13:10 ms3 Administered Medications: 13:42 Drug: HYDROcodone-acetaminophen 5 mg-325 mg 1 tabs Route: PO; aa5 14:32 Follow up: Response: No adverse reaction aa5 13:42 Drug: Phenergan (promethazine) 12.5 mg Route: IM; Site: right gluteus; aa5 14:32 Follow up: Response: No adverse reaction aa5 14:32 Drug: HYDROcodone-acetaminophen 5 mg-325 mg 1 tabs Route: PO; aa5 18:20 Follow up: Response: Pain is decreased bm7 16:45 Drug: morphine 2 mg Route: IVP; Infused Over: 4 mins; Site: right antecubital; iw 18:19 Follow up: Response: Pain is decreased bm7 17:27 Drug: morphine 2 mg Route: IVP; Infused Over: 4 mins; Site: right antecubital; iw 18:19 Follow up: Response: Pain is decreased bm7 18:11 Drug: Methotrexate 75 mg Route: IM; Site: right ventrogluteal; iw 18:19 Follow up: Response: No adverse reaction bm7 Disposition Summary: 01/05/22 17:20 Discharge Ordered Location: Home ms3 Condition: Stable ms3 Diagnosis - Other ectopic without intrauterine ms3 Followup: ms3 - With: Juanjose Muñoz MD - When: 01/09/2022 - Reason: Followup: ms3 - With: Private Physician - When: 01/09/2022 - Reason: Discharge Instructions: - Discharge Summary Sheet ms3 - Ectopic , Bthm-uv-Ptzs ms3 - Methotrexate Treatment for an Ectopic , Care After ms3 Forms: - Medication Reconciliation Form ms3 - Thank You Letter ms3 - Antibiotic Education ms3 - Prescription Opioid Use ms3 Prescriptions: - Tylenol-Codeine #3 300 mg-30 mg Oral - take 1 tablet by ORAL route every 4 hours; 18 tablet; Refills: 0, Product ms3 Selection Permitted Critical care time excluding procedures: 17:20 Critical care time: Bedside Care: 25 minutes, Consultation: 10 minutes. Total time: 35 ms3 minutes Signatures: Dispatcher [employer] EDSis Tena RN RN iw Perla David RN RN aa5 Mehul Guillermo DO DO ms3 Lisset Martinez RN bm7 Corrections: (The following items were deleted from the chart) 13:11 12:26 1st Trimest Single 1st Fetus+US.RAD.BRZ ordered. EDMS EDMS 14:11 13:47 QUANTITATIVE HCG+C.LAB.BRZ ordered. EDMS EDMS 23:27 13:46 The patient presents with abdominal pain Right flank pain ms3 ms3
[2022-01-05] MEDS ORDERED: METHOTREXATE 75 MG/3 ML SYR IM ONE (18:00)
[2022-01-05 19:50] VITALS: TEMP 98.2
[2022-01-05 19:52] VITALS: BP 122/74; O2SAT 99
== END 2022-01-05 18:21 | disposition home or self-care (01) ==
LOC: ER 11:59
DX: O00.80 Other ectopic pregnancy without intrauterine pregnancy (principal); F17.210 Nicotine dependence, cigarettes, uncomplicated
CPT/HCPCS: 87088; 85025; 87086; 80048; 36415; 81025; 84702; 76817; 96372; 96374; 99284; J2550; J2270 ×2; J9260; 81003; 81015

== ENCOUNTER 2022-02-13 14:33 | Emergency (ER) | payer OTHER ==
--- OUTSIDE RECORDS SUMMARY | 2022-02-13 14:36 | XMS REPORT | Continuity of Care Document ---
:1990 Author Organization [facility] t Address [address] [place] [address] Dr. [address]. [address] [place] [address] Care Team Providers Name Role Phone Pcp, Patient Does Not Have A Primary Care Physician +[id number] José Luis Pierre MD Attending Clinician Lab, Ang-Rmchp Attending Clinician Unavailable Angelita AGUIRREPMarcus Attending Clinician MARCUS LAWRENCE Attending Clinician Unavailable Fidelia Nieves Attending Clinician Rupa [facility] FLINTPGabriella Attending Clinician [phone] Doctor Unassigned, Nina Attending Clinician Unavailable Payers Payer Name Policy Type Policy Number Effective Date Expiration Date S ource Problems Condition Condition Condition Status Onset Resolution Last Treating Co mments Source Name Details Category Date Date Treatment Clinician Date Ectopic Ectopic Disease Active Overview: Univ ers - Formattin i ty of 00:00: g of this [place] 00 note is Medical different Branch from the original. Benedicto Carranzan31 year oldAdmiss ion Date: 01/05/22Pa tient Phone#: [phone] 117Altern ate Phone#: NoneLMP: UnkCC: Ectopic Exam: UnknownBi rth Control: UnknownIn itial bhc (12/30)Blo od type: A positiveH b.3Hct: 40.8Ultra sound Findings: Unavailab le, patient treated with MTX for ectopic at outside hospitalP athology: N/aAssess ment:Trish Harris is a 31 year old who is being followed by beta clinic for ectopic , dx and treated at OSH with MTX on 01/05.Plan :- Patient received methotrex ate at OSH on 01/05.- Plan to trend beta hCG weekly until negative 12/30/21 15:06 01/13/22 15:11 01/20/22 13:11 01/31/22 10:35 BETA HCG 1,045.20 96.09 19.23 <2.39 - Given negative beta hCG on 01/31/22, OK to remove patient from beta book after discussio n with Dr. Alesia Pierre MDObstetr ics and Gynecolog y, PGY-1 Former Former Disease Active Univers tobacco tobacco 8- ity of use use 00:00: [address] Branch Vaginal Vaginal Disease Active Univers bleeding bleeding 8-19 [place] affecting [place] early [place] High risk High risk Disease Active Uni vers 8-19 ity of due to due to 00:00: [place] recurrent recurrent 00 Medi emeterio Bran ch loss, loss, first first trimester trimester History of History of Disease Active 2020-05 U nivers depression depression 2-31 it y of 00:00: [address] Branch Susceptibl Susceptibl Disease Active Overview : Univers e to e to 6-18 Formattin ity of varicella varicella 00:00: [place] of [place] (non-immun (non-immun 00 note Me dical e), e), might be Branch currently currently different from the original. Address pp Encounter Encounter Diagnosis Active [facility] general general - [facility] adult adult [facility] examinatio examinatio Me dical n without n without Cent er abnormal abnormal findings findings Tobacco Tobacco Diagnosis Active Commo n abuse abuse Spirit counseling counseling - [facility] Allergies, Adverse Reactions, Alerts Allergy Allergy Status Severity Reaction(s) Onset Inactive Treating Comm ents Source Name Type Date Date Clinician NO KNOWN Drug Active Univers ALLERGIE Class ity of S [facility] Social History Social Habit Start Date Stop Date Quantity Comments Source ASSERTION 2021-12-07 [facility] 00:00:00 [facility] Exposure to 2022-01-21 2022-01-31 Not sure [facility] SARS-CoV-2 (event) 00:00:00 09:44:00 [facility] Alcohol intake 2022-01-13 2022-01-13 .14 /d [facility] 00:00:00 00:00:00 [facility] Cigarettes smoked 2021-12-30 2021-12-30 Univers ity of current (pack per 00:00:00 00:00:00 [facility] ) - Reported Branch Cigarette 2021-12-30 2021-12-30 University of pack-years 00:00:00 00:00:00 [facility] Tobacco use and 2021-12-30 2021-12-30 Smokeless Universit y of exposure 00:00:00 00:00:00 tobacco non-user [facility] History of tobacco 2021-10-26 Cigarette Smoker University of use 00:00:00 [facility] Sex Assigned At [birth year] Universit y of 00:00:00 00:00:00 [facility] Smoking Status Start Date Stop Date Source Ex-smoker 2021-12-30 00:00:00 2021-12-30 00:00:00 Universi ty of [facility] Medications Ordered Filled Start Stop Current Ordering Indication Dosage Frequency Signature Comments Components Source Medication Medication Date Date Medication? Clinician (SIG) Name Name PROGESTERON Yes Apply to Un eva E 8-19 skin. ity of MICRONIZED 14:32: [address] PROGESTERON Yes Apply to Un eva E 8-19 skin. ity of MICRONIZED 14:32: [place] TRANSDERMAL [address] [place] [address] PROGESTERON Yes Apply to Un eva E 8-19 skin. ity of MICRONIZED 14:32: [address] PROGESTERON Yes Apply to Un eva E 8-19 skin. ity of MICRONIZED 14:32: [address] 2020-05 Yes [id number] 1{tbl} Take 1 U nivers multivitami 2-31 tablet by ity of n ( 00:00: mouth [place] VITAMIN) 00 daily. Medical tablet Branch foLIC acid 2020-05 Yes [id number] 1mg Take 1 U nivers 1 mg tablet 2-31 tablet by ity of 00:00: mouth [place] 00 daily. Medical Branch 2020-05 Yes [id number] 1{tbl} Take 1 U nivers multivitami 2-31 tablet by ity of n ( 00:00: mouth [place] VITAMIN) 00 daily. Medical tablet Branch foLIC acid 2020-05 Yes [id number] 1mg Take 1 U nivers 1 mg tablet 2-31 tablet by ity of 00:00: mouth [place] 00 daily. Medical Branch 2020-05 Yes [id number] 1{tbl} Take 1 U nivers multivitami 2-31 tablet by ity of n ( 00:00: mouth [place] VITAMIN) 00 daily. Medical tablet Branch foLIC acid 2020-05 Yes [id number] 1mg Take 1 U nivers 1 mg tablet 2-31 tablet by ity of 00:00: mouth [place] 00 daily. Medical Branch 2020-05 Yes [id number] 1{tbl} Take 1 U nivers multivitami 2-31 tablet by ity of n ( 00:00: mouth [place] VITAMIN) 00 daily. Medical tablet Branch foLIC acid 2020-05 Yes [id number] 1mg Take 1 U nivers 1 mg tablet 2-31 tablet by ity of 00:00: mouth [place] 00 daily. Medical Branch Yes [id number] 1{tbl} Take 1 U nivers multivitami 6-17 tablet by ity of n ( 00:00: mouth [place] VITAMIN) 00 daily. Medical tablet Branch Yes [id number] 1{tbl} Take 1 U nivers multivitami 6-17 tablet by ity of n ( 00:00: mouth [place] VITAMIN) 00 daily. Medical tablet Branch Yes [id number] 1{tbl} Take 1 U nivers multivitami 6-17 tablet by ity of n ( 00:00: mouth [place] VITAMIN) 00 daily. Medical tablet Branch Yes [id number] 1{tbl} Take 1 U nivers multivitami 6-17 tablet by ity of n ( 00:00: mouth [place] VITAMIN) 00 daily. Medical tablet Branch 1 1 Yes Yvan Ly david Lyonswda defined Spirit - [facility] Procedures Procedure Date / Time Performed Performing Clinician [facility] e TOTAL BETA HCG ASSAY 2022-01-31 15:35:00 [facility] Start End Encounter Admission Attending Care Care Encounter Source Date/Time Date/Time Type Type Clinicians Facility Department ID 2022-02-03 2022-02-03 THEO Alarcon [id number] [facility] 00:00:00 00:00:00 Management José Luis PLASENCIA [id number] ity [facility] [id number] Cristóbal as [id number] [address] 2022-01-31 2022-01-31 Inventory Planner Lab, Ang-Rmchp [facility] [id number] Univers 10:00:00 10:37:38 Visit Marcus Lawrence VOLUNTEER ASSISTANT [id number] ity [place] [id number] Cristóbal as MATERNAL [id number] [facility] & CHILD [address] [place] [address] 2022-01-31 2022-01-31 Outpatient R [facility] [id number] Univers 10:00:00 10:00:00 [id number] ity [facility] 2022-01-31 2022-01-31 Outpatient R ANGELITA [facility] [id number] Univers 10:00:00 10:00:00 MARCUS hsuain o f [facility] 2022-01-05 2022-01-05 Telephone Jairo [facility] [id number] Univers 00:00:00 00:00:00 Fidelia VOLUNTEER ASSISTANT [id number] it y of [id number] Cristóbal as MATERNAL [id number] [facility] & CHILD [address] [place] [address] 2020-10-28 2020-10-28 Initial Rupa MAARTIE [id number] 09:51:19 11:12:43 Gabriella Ly VOLUNTEER ASSISTANT [id number] Visit [facility] [id number] MATERNAL [id number] & CHILD [facility] 2020-10-28 2020-10-28 Orders Doctor THEO [id number] 00:00:00 00:00:00 Only Unassigned, ERINN [id number] Nina [facility] [id number] 2018-11-20 2018-11-20 Outpatient Linden Cheathamt [id number] Common 13:30:00 13:30:00 t [facility] [place] [facility] Results Test Description Test Time Test Comments Results Result [facility] Comments TOTAL BETA HCG 2022-02-01 BETA University of ASSAY 04:46:10 HCG<2.39Non-preg [facility] dical nant female and Branch male patients: <5 mIU/mL01/31/2022 11:46 PM [facility] Gestational Age ?Range (mIU/mL) 1-10 ?Weeks ?[id number] Weeks ?[id number] Weeks ?[id number] 0 Weeks ?[id number] Biotin has been reported to cause a negative bias, interpret results relative to patient's use of biotin.
[2022-02-13] MEDS ORDERED: AMOX/K CLAV 875 MG TAB ONE (14:59)
[2022-02-13] MEDS ORDERED: IBUPROFEN 200 MG TAB PO ONE (15:00)
[2022-02-13] MEDS ORDERED: HYDROMORPHONE HCL 1 MG/ML INJ ONE (15:00)
--- NOTE | 2022-02-13 15:41 | ER ---
Nurse's Notes [facility] [place] [facility] Name: Ceci Harrell Age: 31 yrs Sex: Female : 1990 Arrival Date: 02/13/2022 Time: 14:34 Bed 12 Private MD: Diagnosis: Dental root caries Presentation: 02/13 14:55 Chief complaint: Patient states: toothache x 4 days. Coronavirus screen: Client denies ss travel out of the [place] in the last 14 days. Ebola Screen: Patient denies exposure to infectious person. Patient denies travel to an Ebola-affected area in the 21 days before illness onset. Initial Sepsis Screen: Does the patient meet any 2 criteria? No. Patient's initial sepsis screen is negative. Does the patient have a suspected source of infection? No. Patient's initial sepsis screen is negative. Risk Assessment: Do you want to hurt yourself or someone else? Patient reports no desire to harm self or others. Onset of symptoms was February 11, 2022. 14:55 Method Of Arrival: Ambulatory ss 14:55 Acuity: KYA 4 ss Historical: - Allergies: 14:56 No Known Allergies; ss - Home Meds: 14:56 None [Active]; ss - PMHx: 14:56 Ectopic ; ss - PSHx: 14:56 None; ss - Immunization history:: Client reports having NOT received the Covid vaccine. - Social history:: Smoking status: Patient denies any tobacco usage or history of. Screenin:11 Abuse screen: Denies threats or abuse. Denies injuries from another. Nutritional ss screening: No deficits noted. Tuberculosis screening: Never had TB. Fall Risk None identified. Assessment: 15:11 General: Appears distressed, uncomfortable, Behavior is calm, cooperative. Pain: ss Complains of pain in R sided mouth pain. Neuro: Level of Consciousness is awake, alert, obeys commands, Oriented to person, place, time, situation, Speech is normal. Cardiovascular: Capillary refill < 3 seconds is brisk in bilateral fingers. Respiratory: Airway is patent Respiratory effort is even, unlabored, Respiratory pattern is regular, symmetrical. GI:. EENT: Derm: Skin is intact, is healthy with good turgor, Skin is dry, Skin is pink, warm \T\ dry. normal. Musculoskeletal: Circulation, motion, and sensation intact. Range of motion: intact in all extremities. 15:50 Reassessment: Patient appears in no apparent distress at this time. Patient and/or ss family updated on plan of care and expected duration. Pain level reassessed. Patient is alert, oriented x 3, equal unlabored respirations, skin warm/dry/pink. Patient states feeling better. Patient states symptoms have improved. Reassessment: RASS score 0. Initial RASS score +2. General: Appears in no apparent distress. comfortable. Vital Signs: 14:55 BP 133 / 66; Pulse 103; Resp 24; Temp 98.6(TE); Pulse Ox 99% on R/A; Weight 60.33 kg; ss Height 5 ft. 2 in. (157.48 cm); Pain 10/10; 14:55 Body Mass Index 24.33 (60.33 kg, 157.48 cm) ED Course: 14:34 Patient arrived in ED. rg4 14:38 Linh Jay FNP-C is [facility]. snw 14:38 Tom Rowe MD is Attending Physician. snw 14:55 Emily Amaya RN is Primary Nurse. ss 14:56 Triage completed. ss 14:56 Arm band placed on right wrist. ss 15:50 Patient has correct armband on for positive identification. Bed in low position. ss 15:50 No provider procedures requiring assistance completed. Patient did not have IV access ss during this emergency room visit. Administered Medications: 15:04 Drug: Augmentin (Amoxicillin-Clavulanate) 875 mg Route: PO; ss 15:52 Follow up: Response: No adverse reaction; Marked relief of symptoms; Pain is decreased ss 15:05 Drug: Dilaudid (HYDROmorphone) 1 mg Route: IM; Site: right deltoid; ss 15:52 Follow up: Response: No adverse reaction; Marked relief of symptoms; Pain is decreased ss 15:05 Not Given (Pt took Advil 2 hours agoo): Motrin (ibuprofen) 600 mg PO once ss Medication: 15:11 VIS not applicable for this client. ss Outcome: 15:41 Discharge ordered by . snw 15:50 Discharged to home ambulatory. ss 15:50 Condition: good 15:50 Discharge instructions given to patient, family, Instructed on discharge instructions, follow up and referral plans. medication usage, Demonstrated understanding of instructions, follow-up care, medications, Prescriptions given X 2. 15:52 Patient left the ED. ss Signatures: Linh Jay, JEM-C NEWS VIDEOGRAPHER-Csnw Emily Amaya RN RN ss Dawn Elaine rg4
--- NOTE | 2022-02-13 15:41 | EDPHYS ---
Physician Documentation [facility] Name: Ceci Harerll Age: 31 yrs Sex: Female : 1990 Arrival Date: 02/13/2022 Time: 14:34 Bed 12 Private MD: ED Physician Tom Rowe HPI: 02/13 14:51 This 31 yrs old Female presents to ER via Unassigned with complaints of Toothache. snw Historical: - Allergies: 14:56 No Known Allergies; ss - Home Meds: 14:56 None [Active]; ss - PMHx: 14:56 Ectopic ; ss - PSHx: 14:56 None; ss - Immunization history:: Client reports having NOT received the Covid vaccine. - Social history:: Smoking status: Patient denies any tobacco usage or history of. ROS: 14:51 Eyes: Negative for injury, pain, redness, and discharge. snw 14:51 Neck: Negative for injury, pain, and swelling, Cardiovascular: Negative for chest pain, palpitations, and edema, Respiratory: Negative for shortness of breath, cough, wheezing, and pleuritic chest pain, Abdomen/GI: Negative for abdominal pain, nausea, vomiting, diarrhea, and constipation, Back: Negative for injury and pain, : Negative for injury, bleeding, discharge, and swelling, MS/Extremity: Negative for injury and deformity, Skin: Negative for injury, rash, and discoloration, Neuro: Negative for headache, weakness, numbness, tingling, and seizure. 14:51 Constitutional: Positive for fatigue, poor PO intake. 14:51 ENT: Positive for Teeth pain Exam: 14:48 Head/Face: Normocephalic, atraumatic. Eyes: Pupils equal round and reactive to light, snw extra-ocular motions intact. Lids and lashes normal. Conjunctiva and sclera are non-icteric and not injected. Cornea within normal limits. Periorbital areas with no swelling, redness, or edema. Neck: Trachea midline, no thyromegaly or masses palpated, and no cervical lymphadenopathy. Supple, full range of motion without nuchal rigidity, or vertebral point tenderness. No Meningismus. Chest/axilla: Normal chest wall appearance and motion. Nontender with no deformity. No lesions are appreciated. 14:48 Respiratory: Lungs have equal breath sounds bilaterally, clear to auscultation and percussion. No rales, rhonchi or wheezes noted. No increased work of breathing, no retractions or nasal flaring. Abdomen/GI: Soft, non-tender, with normal bowel sounds. No distension or tympany. No guarding or rebound. No evidence of tenderness throughout. Back: No spinal tenderness. No costovertebral tenderness. Full range of motion. Skin: Warm, dry with normal turgor. Normal color with no rashes, no lesions, and no evidence of cellulitis. MS/ Extremity: Pulses equal, no cyanosis. Neurovascular intact. Full, normal range of motion. Neuro: Awake and alert, GCS 15, oriented to person, place, time, and situation. Cranial nerves II-XII grossly intact. Motor strength 5/5 in all extremities. Sensory grossly intact. Cerebellar exam normal. Normal gait. 14:48 Constitutional: The patient appears alert, awake, restless, uncomfortable, screaming, diaphoretic 14:48 Cardiovascular: Rate: tachycardic. 14:48 Psych: Behavior/mood is inappropriate for age, Affect is animated. Vital Signs: 14:55 BP 133 / 66; Pulse 103; Resp 24; Temp 98.6(TE); Pulse Ox 99% on R/A; Weight 60.33 kg; ss Height 5 ft. 2 in. (157.48 cm); Pain 10/10; 14:55 Body Mass Index 24.33 (60.33 kg, 157.48 cm) ss MDM: 14:40 Patient medically screened. snw 15:40 Data reviewed: vital signs, nurses notes. Data interpreted: Pulse oximetry: on room air snw is 99 %. Interpretation: normal. Counseling: I had a detailed discussion with the patient and/or guardian regarding: the historical points, exam findings, and any diagnostic results supporting the discharge/admit diagnosis, the need for outpatient follow up, to return to the emergency department if symptoms worsen or persist or if there are any questions or concerns that arise at home. Response to treatment: the patient's symptoms have markedly improved after treatment. Special discussion: Based on the history and exam findings, there is no indication for further emergent testing or inpatient evaluation. I discussed with the patient/guardian the need to see a dentist for further evaluation of the symptoms. Administered Medications: 15:04 Drug: Augmentin (Amoxicillin-Clavulanate) 875 mg Route: PO; ss 15:52 Follow up: Response: No adverse reaction; Marked relief of symptoms; Pain is decreased ss 15:05 Drug: Dilaudid (HYDROmorphone) 1 mg Route: IM; Site: right deltoid; ss 15:52 Follow up: Response: No adverse reaction; Marked relief of symptoms; Pain is decreased ss 15:05 Not Given (Pt took Advil 2 hours agoo): Motrin (ibuprofen) 600 mg PO once ss Disposition: 15:53 PA/STEEL HANDLER's history reviewed, patient interviewed, and examined. I agree with assessment jr11 and care plan and confirm the diagnosis (es) above. Attestation: The patient's history, exam findings, diagnostics, and a summary of any interventions or procedures was reviewed in detail with Linh QUINTERO. Disposition Summary: 02/13/22 15:41 Discharge Ordered Location: Home snw Condition: Stable snw Diagnosis - Dental root caries snw Followup: snw - With: Emergency Department - When: As needed - Reason: Worsening of condition Followup: snw - With: Private Physician - When: 2 - 3 days - Reason: Recheck today's complaints, Continuance of care, Re-evaluation by your physician Discharge Instructions: - Discharge Summary Sheet snw - Dental Caries, Adult snw - Dental Pain snw - Diet and Dental Disease snw - Dental Extraction, Care After, Awmb-ry-Llxr snw Forms: - Medication Reconciliation Form snw - Thank You Letter snw - Antibiotic Education snw - Prescription Opioid Use snw Prescriptions: - Augmentin 500-125 mg Oral Tablet - take 1 tablet by ORAL route every 8 hours for 10 days; 30 tablet; Refills: 0, snw Product Selection Permitted - Tylenol-Codeine #3 300 mg-30 mg Oral - take 1 tablet by ORAL route every 8-12 hours; 18 tablet; Refills: 0, Product snw Selection Permitted Signatures: Linh Jay FNP-C FNP-Csnw Emily Amaya RN RN Tom Mae MD MD [email or web address]
[2022-02-13 16:14] VITALS: BP 133/66; TEMP 98.6; O2SAT 99
== END 2022-02-13 15:52 | disposition home or self-care (01) ==
LOC: ER 14:33
DX: K02.7 Dental root caries (principal)
CPT/HCPCS: 96372; 99283; J1170

== ENCOUNTER 2022-02-13 21:28 | Emergency (ER) | payer OTHER ==
--- OUTSIDE RECORDS SUMMARY | 2022-02-13 21:50 | XMS REPORT | Continuity of Care Document ---
:1990 Author Organization [facility] t Address [address] [place] [address] Dr. [address]. [address] [place] [address] Care Team Providers Name Role Phone Pcp, Patient Does Not Have A Primary Care Physician [phone] José Luis Pierre MD Attending Clinician Makenna, Ang-Rmchp Attending Clinician Unavailable Marcus Hyde Attending Clinician MARCUS LAWRENCE Attending Clinician Unavailable Fidelia Nieves Attending Clinician Rupa JOEYPGabriella Attending Clinician [phone] Doctor Unassigned, [place] Attending Clinician Unavailable Payers Payer Name Policy Type Policy Number Effective Date Expiration Date S ource Problems Condition Condition Condition Status Onset Resolution Last Treating Co mments Source Name Details Category Date Date Treatment Clinician Date Ectopic Ectopic Disease Active Overview: Univ ers - Formattin i ty of 00:00: g of this [place] 00 note is Medical different Branch from [...] tobacco 8- ity of use use 00:00: [address] Branch Vaginal Vaginal Disease Active Univers bleeding bleeding 8-19 [place] affecting [place] early 00 [place] High risk High risk Disease Active Uni vers 8-19 ity of due to due to 00:00: [place] recurrent recurrent 00 Medi emeterio Bran ch loss, loss, first first trimester trimester History of History of Disease Active 2020-05 U nivers depression depression 2-31 it y of 00:00: [address] Branch Susceptibl Susceptibl Disease Active Overview : Univers e to e to 6-18 Formattin ity of varicella varicella 00:00: [place] (non-immun (non-immun 00 note Me dical e), e), might be Branch currently currently different from the original. Address pp Encounter Encounter Diagnosis Active [facility] for [facility] general general - [facility] adult adult [facility] examinatio examinatio Me dical n without n without Cent er abnormal abnormal findings findings Tobacco Tobacco Diagnosis Active Commo n abuse abuse Spirit counseling counseling - [facility] Allergies, Adverse Reactions, Alerts Allergy Allergy Status Severity Reaction(s) Onset Inactive Treating Comm ents Source Name Type Date Date Clinician NO KNOWN Drug Active Univers ALLERGIE Class ity of S [facility] Social History Social Habit Start Date Stop Date Quantity Comments Source ASSERTION 2021-12-07 [facility] 00:00:00 [facility] Exposure to 2022-01-21 2022-01-31 Not sure [facility] SARS-CoV-2 (event) 00:00:00 09:44:00 [facility] Alcohol intake 2022-01-13 2022-01-13 .14 /d [facility] 00:00:00 00:00:00 [facility] Cigarettes smoked 2021-12-30 2021-12-30 Univers ity of current (pack per 00:00:00 00:00:[address] [facility] ) - Reported Branch Cigarette 2021-12-30 2021-12-30 University of pack-years 00:00:00 00:00:00 [facility] Tobacco use and 2021-12-30 2021-12-30 Smokeless Universit y of exposure 00:00:00 00:00:00 tobacco non-user [facility] History of tobacco 2021-10-26 Cigarette Smoker University of use 00:00:00 [facility] Sex Assigned At [birth year] Universit y of 00:00:00 00:00:00 [facility] Smoking Status Start Date Stop Date Source Ex-smoker 2021-12-30 00:00:00 2021-12-30 00:00:00 Universi ty of [facility] Medications Ordered Filled Start Stop Current Ordering Indication Dosage Frequency Signature Comments Components Source Medication Medication Date Date Medication? Clinician (SIG) Name Name PROGESTERON Yes Apply to Un eva E 8-19 skin. ity of MICRONIZED 14:32: [address] PROGESTERON Yes Apply to Un eva E 8-19 skin. ity of MICRONIZED 14:32: [place] TRANSDERMAL [address] [place] [address] PROGESTERON Yes Apply to Un eva E 8-19 skin. ity of MICRONIZED 14:32: [address] PROGESTERON Yes Apply to Un eva E 8-19 skin. ity of MICRONIZED 14:32: [address] 2020-05 Yes [id number] 1{tbl} Take 1 U nivers multivitami 2-31 tablet by ity of n ( 00:00: mouth [place] VITAMIN) 00 daily. Medical tablet Branch foLIC acid 2020-05 Yes [id number] 1mg Take 1 U nivers 1 mg tablet 2-31 tablet by ity of 00:00: mouth [place] 00 daily. Medical Branch 2020-05 Yes [id number] 1{tbl} Take 1 U nivers multivitami 2-31 tablet by ity of n ( 00:00: mouth [place] VITAMIN) 00 daily. Medical tablet Branch foLIC acid 2020-05 Yes [id number] 1mg Take 1 U nivers 1 mg tablet 2-31 tablet by ity of 00:00: mouth [place] 00 daily. Medical Branch 2020-05 Yes [id number] 1{tbl} Take 1 U nivers multivitami 2-31 tablet by ity of n ( 00:00: mouth [place] VITAMIN) 00 daily. Medical tablet Branch foLIC acid 2020-05 Yes [id number] 1mg Take 1 U nivers 1 mg tablet 2-31 tablet by ity of 00:00: mouth [place] 00 daily. Medical Branch 2020-05 Yes [id number] 1{tbl} Take 1 U nivers multivitami 2-31 tablet by ity of n ( 00:00: mouth [place] VITAMIN) 00 daily. Medical tablet Branch foLIC acid 2020-05 Yes [id number] 1mg Take 1 U nivers 1 mg tablet 2-31 tablet by ity of 00:00: mouth [place] 00 daily. Medical Branch Yes [id number] 1{tbl} Take 1 U nivers multivitami 6-17 tablet by ity of n ( 00:00: mouth [place] VITAMIN) 00 daily. Medical tablet Branch Yes [id number] 1{tbl} Take 1 U nivers multivitami 6-17 tablet by ity of n ( 00:00: mouth [place] VITAMIN) 00 daily. Medical tablet Branch Yes [id number] 1{tbl} Take 1 U nivers multivitami 6-17 tablet by ity of n ( 00:00: mouth [place] VITAMIN) 00 daily. Medical tablet Branch Yes [id number] 1{tbl} Take 1 U nivers multivitami 6-17 tablet by ity of n ( 00:00: mouth [place] VITAMIN) 00 daily. [facility] 1 1 Yes Yvan Ly david Lyonswda defined [facility] Procedures Procedure Date / Time Performed Performing Clinician Sour e TOTAL BETA HCG ASSAY 2022-01-31 15:35:00 [facility] Start End Encounter Admission Attending Care Care Encounter Source Date/Time Date/Time Type Type Clinicians Facility Department ID 2022-02-03 2022-02-03 THEO Alarcon [id number] 00:00:00 00:00:00 Management José Luis PLASENCIA [id number] [facility] [id number] Cristóbal as [id number] [address] 2022-01-31 2022-01-31 Sorting And Folding Supervisor Lab, Ang-Rmchp [facility] [id number] Univers 10:00:00 10:37:38 Visit Marcus Lawrence MARKET DEVELOPMENT EXECUTIVE [id number] ity [place] [id number] Cristóbal as MATERNAL [phone] Med [facility] & CHILD [address] [place] [address] 2022-01-31 2022-01-31 Outpatient R [facility] [id number] Univers 10:00:00 10:00:00 [id number] ity [facility] 2022-01-31 2022-01-31 Outpatient R ANGELITA [facility] [id number] Univers 10:00:00 10:00:00 MARCUS husain o f [facility] 2022-01-05 2022-01-05 Telephone Jairo [facility] [id number] Univers 00:00:00 00:00:00 Fidelia MARKET DEVELOPMENT EXECUTIVE [id number] it y of [facility] [id number] Cristóbal as MATERNAL [id number] Med [facility] & CHILD [address] [place] [address] 2020-10-28 2020-10-28 Initial Rupa MSARTIE [id number] 09:51:19 11:12:43 Gabriella Ly MARKET DEVELOPMENT EXECUTIVE [id number] Visit [facility] [id number] MATERNAL [id number] & CHILD [address] [place] [address] 2020-10-28 2020-10-28 Orders Doctor THEO [id number] 00:00:00 00:00:00 Only Unassigned, ERINN [id number] [place] [facility] [id number] 2018-11-20 2018-11-20 Outpatient [facility] [id number] Common 13:30:00 13:30:00 t [facility] Results Test Description Test Time Test Comments Results Result [facility] Comments TOTAL BETA HCG 2022-02-01 BETA University of ASSAY 04:46:10 HCG<2.39Non-preg [facility] dical nant female and Branch male patients: <5 mIU/mL01/31/2022 11:46 PM [facility] Gestational Age ?Range (mIU/mL) 1-10 ?Weeks ?[id number] Weeks ?[id number] Weeks ?[id number] 0 Weeks ?[id number] Biotin has been reported to cause a negative bias, interpret results relative to patient's use of biotin.
--- NOTE | 2022-02-13 21:54 | ER ---
Nurse's Notes [facility] Name: Ceci Harrell Age: 31 yrs Sex: Female : 1990 Arrival Date: 02/13/2022 Time: 21:32 Bed Waiting Private MD: Diagnosis: Assessment: 02/13 21:53 General: registration reports pt left due to her medicine starting to work and feeling as6 better. ED Course: 21:32 Patient arrived in ED. gregorio 21:52 Patient's name was called from ER ning. No response. Unable to locate patient. Will as6 disposition as left without being seen by a provider. Administered Medications: No medications were administered Outcome: 21:54 Patient left the ED. as6 Signatures: Imelda Figueroa Ashby, RN RN as6
== END 2022-02-13 21:54 | disposition left against medical advice (07) ==
LOC: ER 21:28
DX: Z02.89 Encounter for other administrative examinations (principal); Z53.21 Procedure and treatment not carried out due to patient leaving prior to being seen by health care provider

== ENCOUNTER 2022-04-03 01:38 | Emergency (ER) | payer OTHER ==
--- OUTSIDE RECORDS SUMMARY | 2022-04-03 01:42 | XMS REPORT | Continuity of Care Document ---
:1990 Author Organization [facility] t Address [address] [place] [address] Jeffrey. [address] [place] [address] Care Team Providers Name Role Phone Pcp, Patient Does Not Have A Primary Care Physician [phone] Yvan Mitchell Attending Clinician Unavailable GABRIELLA GOODE Attending Clinician Unavailable José Luis Pierre MD Attending Clinician [facility]ending Clinician Unavailable Marcus Hyde Attending Clinician MARCUS GOLDSTEIN Attending Clinician Unavailable FIDELIA GILL Attending Clinician Unavailable Fidelia Nieves Attending Clinician [facility] Attending Clinician Unavailable Terrell Jones MD Attending Clinician ANAID SWAIN Attending Clinician Unavailable Fellow, Wang [facility] Attending Clinician Unavailable Anaid Swain MD Attending Clinician Nora Sulatna RN Attending Clinician Unavailable Doctor Unassigned, [place] Attending Clinician Unavailable Gabriella Durbin Attending Clinician [phone] Visit, Randall Nurse Attending Clinician Unavailable Payers Payer Name Policy Type Policy Number Effective Date Expiration Date Mart [employer] [id number] 2016 HEALTH 00:00:00 Problems Condition Condition Condition Status Onset Resolution Last Treating Co mments Source Name Details Category Date Date Treatment Clinician Date Ectopic Ectopic Disease Active Overview: Univ ers 9-21 Formattin i ty of 00:00: g of this [place] 00 note is Medical different Branch from the original. eBnedicto Carranzan31 year oldAdmiss ion Date: 01/05/22Pa tient Phone#: [phone] ate Phone#: None[facility] Ectopic Exam: UnknownBi rth Control: UnknownIn itial bhc (12/30)Blo od type: A positiveH b.3Hct: 40.8Ultra sound Findings: Unavailab le, patient treated with MTX for ectopic at outside hospitalP athology: N/aAssess ment:Trish Harrell is a 31 year old who is [...] tobacco 8-19 ity of use use 00:00: [place] [address] Medical Branch Vaginal Vaginal Disease Active Univers bleeding bleeding 8-19 [place] of affecting [place] High risk High risk Disease Active Uni vers 8-19 ity of due to due to 00:00: [place] recurrent recurrent 00 Medi emeterio Bran ch loss, loss, first first trimester trimester History of History of Disease Active 2020-05 U nivers depression depression 2-31 it y of 00:00: [place] [address] Medical Branch Susceptibl Susceptibl Disease Active Overview : Univers e to e to 6-18 Formattin ity of varicella varicella 00:00: [place] of [place] (non-immun (non-immun 00 note Me dical e), e), might be Branch currently currently different from the original. Address pp Encounter Encounter Diagnosis Active [facility] for for Spirit general general - [facility] adult adult [facility] examinatio examinatio Me dical n without n without Cent er abnormal abnormal findings findings Tobacco Tobacco Diagnosis Active Commo n abuse abuse Spirit counseling counseling - [facility] Allergies, Adverse Reactions, Alerts Allergy Allergy Status Severity Reaction(s) Onset Inactive Treating Comm ents Source Name Type Date Date Clinician NO KNOWN Drug Active Univers ALLERGIE Class ity of S [facility] Social History Social Habit Start Date Stop Date Quantity Comments Source ASSERTION 2021-12-07 [facility] 00:00:00 [facility] Exposure to 2022-01-21 2022-01-31 Not sure [facility] SARS-CoV-2 (event) 00:00:00 09:44:00 [facility] Alcohol intake 2022-01-13 2022-01-13 .14 /d [facility] 00:00:00 00:00:00 [facility] Cigarettes smoked 2021-12-30 2021-12-30 Univers ity of current (pack per 00:00:00 00:00:00 ) - Reported [place] Cigarette 2021-12-30 2021-12-30 University of pack-years 00:00:00 00:00:00 [facility] Tobacco use and 2021-12-30 2021-12-30 Smokeless Universit y of exposure 00:00:00 00:00:00 tobacco non-user [facility] History of tobacco 2021-10-26 Cigarette Smoker University of use 00:00:00 [facility] Sex Ass[birth year] At [birth year] Universit y of 00:00:00 00:00:00 [facility] Smoking Status Start Date Stop Date Source Ex-smoker 2021-12-30 00:00:00 2021-12-30 00:00:00 Universi ty [facility] Medications Ordered Filled Start Stop Current Ordering Indication Dosage Frequency Signature Comments Components Source Medication Medication Date Date Medication? Clinician (SIG) Name Name PROGESTERON Yes Apply to Un eva E 8-19 skin. ity of MICRONIZED 14:32: [place] TRANSDERMAL 25 Medical Branch PROGESTERON Yes Apply to Un eva E 8-19 skin. ity of MICRONIZED 14:32: [place] TRANSDERMAL 25 Medical Branch PROGESTERON Yes Apply to Un eva E 8-19 skin. ity of MICRONIZED 14:32: [place] TRANSDERMAL 25 Medical Branch PROGESTERON Yes Apply to Un eva E 8-19 skin. ity of MICRONIZED 14:32: [place] TRANSDERMAL 25 Medical Branch 2020-05 Yes [id number] 1{tbl} Take 1 U nivers multivitami 2-31 tablet by ity of n ( 00:00: mouth [place] VITAMIN) 00 daily. Medical tablet Branch foLIC acid 2020-05 Yes [id number] 1mg Take 1 U nivers 1 mg tablet 2-31 tablet by ity of 00:00: mouth [place] 00 daily. Medical Branch 2020-05 Yes [id number] 1{tbl} Take 1 U nivers multivitami 2-31 tablet by ity of n ( 00:00: mouth [place] VITAMIN) 00 daily. Medical tablet Branch foLIC acid 2020-05 Yes [id number] 1mg Take 1 U nivers 1 mg tablet 2-31 tablet by ity of 00:00: mouth [place] 00 daily. Medical Branch 2020-05 Yes [id number] 1{tbl} Take 1 U nivers multivitami 2-31 tablet by ity of n ( 00:00: mouth [place] VITAMIN) 00 daily. Medical tablet Branch foLIC acid 2020-05 Yes [id number] 1mg Take 1 U nivers 1 mg tablet 2-31 tablet by ity of 00:00: mouth [place] 00 daily. Medical Branch 2020-05 Yes [id number] 1{tbl} Take 1 U nivers multivitami 2-31 tablet by ity of n ( 00:00: mouth [place] VITAMIN) 00 daily. Medical tablet Branch foLIC acid 2020-05 Yes [id number] 1mg Take 1 U nivers 1 mg tablet 2-31 tablet by ity of 00:00: mouth [place] 00 daily. Medical Branch Yes [id number] 1{tbl} Take 1 U nivers multivitami 6-17 tablet by ity of n ( 00:00: mouth [place] VITAMIN) 00 daily. Medical tablet Branch Yes [id number] 1{tbl} Take 1 U nivers multivitami 6-17 tablet by ity of n ( 00:00: mouth [place] VITAMIN) 00 daily. Medical tablet Branch Yes [id number] 1{tbl} Take 1 U nivers multivitami 6-17 tablet by ity of n ( 00:00: mouth [place] VITAMIN) 00 daily. Medical tablet Branch Yes [id number] 1{tbl} Take 1 U nivers multivitami 6-17 tablet by ity of n ( 00:00: mouth [place] VITAMIN) 00 daily. Medical tablet Branch 1 1 Yes Yvan freedman [facility] Procedures Procedure Date / Time Performed Performing Clinician [facility] e TOTAL BETA HCG ASSAY 2022-01-31 15:35:00 Gabriella Goode [facility] Encounters Start End Encounter Admission Attending Care Care Encounter Source Date/Time Date/Time Type Type Clinicians Facility Department ID 2022-03-07 Outpatient zmisaelKayceeda, STLMLC [facility] [id number] Common 11:02:00 Yvan [facility] 2022-03-06 Outpatient zAlda, STLMLC [facility] [id number] Common 10:36:00 Yvan [id number] [facility] 2022-02-21 Outpatient zAlda, STLMLC [facility] [id number] Common 16:25:00 Yvan [id number] [facility] 2022-05-15 2022-05-15 Outpatient R AKINSIPE, [facility] [id number] Univers 09:00:00 09:00:00 GABRIELLA ity o f [facility] 2022-05-15 2022-05-15 Outpatient R AKINSIPE, [facility] [id number] Univers 09:00:00 09:00:00 GABRIELLA ity o f [facility] 2022-02-03 2022-02-03 THEO Alarcon 1.2.840.114 [id number] Univers 00:00:00 00:00:00 Management José Luis PLASENCIA [id number] ity of [facility] [id number] [facility] [address]13 [place] 2022-01-31 2022-01-31 Esthetics Instructor Lab, [facility] 1.2.840. 114 [id number] Univers 10:00:00 10:37:38 Visit Marcus Goldstein INSOLE STIFFENER 350.1.13.10 ity [facility] 4.2.7.2.686 Cristóbal as MATERNAL [id number] [facility] & [address] 2022-01-31 2022-01-31 [facility] [id number] Univers 10:00:00 10:00:00 MARCUS husain o f [facility] 2022-01-26 2022-01-26 [facility] [id number] Univers 14:45:00 14:45:00 FIDELIA [facility] 2022-01-20 2022-01-20 Esthetics Instructor Lab, [facility] 1.2.840. 114 [id number] Univers 12:45:00 13:28:20 Visit Fidelia Gill INSOLE STIFFENER 350.1.13.10 ity [facility] [id number] Cristóbal as MATERNAL [id number] [address] 2022-01-20 2022-01-20 [facility] [id number] Univers 12:45:00 12:45:00 FIDELIA [facility] 2022-01-13 2022-01-13 Esthetics Instructor [facility] UNIVERSIT 1.2.840.114 [id number] Univers 15:15:00 15:30:00 Visit Terrell Jones [facility] 350.1.13.10 ity of [facility] [id number] [place] [id number] [address] 2022-01-13 2022-01-13 Outpatient Beto SWAIN [facility] [id number] Univers 14:00:00 15:17:04 [facility] 2022-01-132022-01-13 Routine Fellow, Wang [facility] Rmchp Mfm UNIVERSI T 1.2.840.114 [id number] Univers 14:00:00 15:17:04 Quinnobeyjosiah Anaid Craig Y HEALTH 350.1.13.1 0 ity of Visit CLINICS [place].2.7.2.686 [place] [id number] [address] 2022-01-13 2022-01-13 Outpatient R [facility] [id number] Univers 14:00:00 14:00:00 ity [facility] 2022-01-09 2022-01-09 Outpatient P [facility] [id number] Univers 10:30:00 10:30:00 ity [facility] 2022-01-05 2022-01-05 Telephone ODELL Gill 1.2.840.114 [id number] Univers 00:00:00 00:00:00 Fidelia INSOLE [place]IFF[place] 350.1.13.10 it y of REGIONAL 4.2.7.2.686 Cristóbal as MATERNAL [id number] Med ical & CHILD [address] [place] [address] 2022-01-05 2022-01-05 ODELL Brown 1.2.840.114 [id number] Univers 00:00:00 00:00:00 Fidelia INSOLE STIFFENER 350.1.13.10 it y of REGIONAL 4.2.7.2.686 Cristóbal as MATERNAL [id number] Med ical & CHILD [address] [place] [address] 2022-01-03 2022-01-03 Abstract ODELL Gill 1.2.840.114 [id number] Univers 00:00:00 00:00:00 Fidelia INSOLE STIFFENER 350.1.13.10 it y of REGIONAL 4.2.7.2.686 Cristóbal as MATERNAL [id number] Med ical & CHILD [address] [place] [address] 2022-01-02 2022-01-02 Letter ODELL Gill 1.2.840.114 [id number] Univers 00:00:00 00:00:00 (Out) Fidelia INSOLE STIFF[place] 350.1.13.10 it y of REGIONAL 4.2.7.2.686 Cristóbal as MATERNAL [id number] [facility] [address] [place] [address] 2022-01-02 2022-01-[address] [facility] 1.2.840.114 [id number] Univers 00:00:00 00:00:00 Secure Msg Nora E INSOLE STIFFENER 350.1.13.10 ity of REGIONAL 4.2.7.2.686 Cristóbal as MATERNAL [id number] [facility] [address] [place] [address] 2021-12-30 2021-12-30 Outpatient Anjali GILL [facility] [id number] Univers 13:30:00 15:27:23 FIDELIA [facility] 2021-12-30 2021-12-30 [facility] 1.2.840.114 [id number] Univers 13:30:00 15:27:23 Fidelia INSOLE STIFFENER 350.1.13.10 i ty of Visit [facility] 4.2.7.2.686 Cristóbal as MATERNAL [id number] [facility] & CHILD [address] [place] [address] 2021-12-30 2021-12-30 Orders Doctor THEO 1.2.840.114 [id number] Univers 00:00:00 00:00:00 Only Unassigned, ERINN 350.1.13.10 ity of [place] [facility] 4.2.7.2.686 Cristóbal as [id number] [address] 2021-12-28 2021-12-28 Outpatient Anjali GILL [facility] [id number] Univers 14:15:00 14:15:00 FIDELIA husain [facility] 2021-12-28 2021-12-28 Outpatient Anjali GILL [facility] [id number] Univers 14:15:00 14:15:00 FIDELIA zach [facility] 2021-08-16 2021-08-16 Outpatient R [facility] [id number] Univers 08:30:00 08:30:00 [facility] 2021-08-16 2021-08-16 [facility] [id number] Univers 08:30:00 08:30:00 GABRIELLA ity o f [facility] 2021-06-28 2021-06-28 Telephone Akinsipe, [facility] 1.2.840.114 [id number] Univers 00:00:00 00:00:00 Gabriella C INSOLE [place]IFF[place] 350.1.13.10 ity of REGIONAL 4.2.7.2.686 Cristóbal as MATERNAL [id number] [facility] CHILD [address] [place] [address] 2021-06-24 2021-06-24 Outpatient R AKINSIPE, [facility] [id number] Univers 08:15:00 10:02:47 GABRIELLA ity o f [facility] 2021-06-24 2021-06-24 Routine Akinsipe, [facility] [id number] [id number] Univers 08:15:00 10:02:47 Gabriella C INSOLE STIFF[place] 350.1.13.10 ity of Visit REGIONAL 4.2.7.2.686 Cristóbal as MATERNAL [id number] [facility] & [address] 2021-06-10 2021-06-10 Outpatient R AKINSIPE, [facility] [id number] Univers 08:00:00 08:00:00 GABRIELLA ity o f [facility] 2021-06-02 2021-06-02 Outpatient R AKINSIPE, [facility] [id number] Univers 11:00:00 11:00:00 GABRIELLA ity o f [facility] 2021-05-23 2021-05-23 Outpatient R AKINSIPE, [facility] [id number] Univers 08:30:00 08:30:00 GABRIELLA ity o f [facility] 2021-05-23 2021-05-23 Outpatient R AKINSIPE, [facility] [id number] Univers 08:30:00 08:30:00 GABRIELLA ity o f [facility] 2021-05-20 2021-05-20 Telephone Akinsipe, [facility] 1.2.840.114 [id number] Univers 00:00:00 00:00:00 Gabriella C INSOLE [place] 350.1.13.10 ity of REGIONAL 4.2.7.2.686 Cristóbal as MATERNAL [id number] [facility] ical & CHILD [address] [place] [address] 2021-05-19 2021-05-19 Outpatient R RUPA [facility] [id number] Univers 08:30:00 09:06:49 GABRIELLA husain o f [facility] 2021-05-19 2021-05-19 Routine Rupa, [facility] [id number] [id number] Univers 08:30:00 09:06:49 Gabriella C INSOLE [place]IFF[place] 350.1.13.10 ity of Visit REGIONAL 4.2.7.2.686 Cristóbal as MATERNAL [id number] [facility] & CHILD [address] [place] [address] 2021-05-19 2021-05-19 Outpatient [facility] [id number] Univers 08:00:00 08:00:00 GABRIELLA islas [facility] 2021-05-19 2021-05-19 Orders Doctor VENEGAS 1.2.840.114 [id number] Univers 00:00:00 00:00:00 Only Unassigned, ERINN 350.1.13.10 ity of [place] [facility] 4.2.7.2.686 Cristóbal as [id number] [address] 2021-05-18 2021-05-18 Outpatient R [facility] [id number] Univers 08:00:00 09:03:05 GABRIELLA husain o ryanne [facility] 2021-05-18 2021-05-18 Nurse Visit, Justin-Rmchp Nurse [facility] 1.2 .840.114 [id number] Univers 08:00:00 09:03:05 Visit Gabriella Goode [place]SOLE [place] 350.1.13. 10 ity of REGIONAL 4.2.7.2.686 Cristóbal as MATERNAL [id number] [facility] & CHILD [address] [place] [address] 2021-05-18 2021-05-18 Outpatient R [facility] [id number] Univers 07:45:00 07:45:00 ity of [facility] 2021-05-17 2021-05-17 Telephone [facility] 1.2.840.114 [id number] Univers 00:00:00 00:00:00 Gabriella C INSOLE STIFFENER 350.1.13.10 ity of REGIONAL 4.2.7.2.686 Rcistóbal as MATERNAL [id number] [facility] [address] [place] [address] 2021-05-13 2021-05-13 Outpatient R AKINSIPE, [facility] [id number] Univers 10:00:00 11:28:35 GABRIELLA ity o f [facility] 2021-05-13 2021-05-13 Initial Akinsipe, [facility] [id number] Univers 10:00:00 11:28:35 Gabriella C INSOLE STIFFENER 350.1.13.10 ity of Visit REGIONAL 4.2.7.2.686 Cristóbal as MATERNAL [id number] [facility] & [address] 2020-12-27 2020-12-27 Outpatient P [facility] [id number] Univers 10:30:00 10:30:00 ity of [facility] 2020-11-24 2020-11-24 Outpatient R AKINSIPE, [facility] [id number] Univers 11:00:00 11:00:00 GABRIELLA ity o [facility] 2020-11-02 2020-11-02 Outpatient R AKINSIPE, [facility] [id number] Univers 10:45:00 10:45:00 GABRIELLA ity o [facility] 2020-10-28 2020-10-28 Initial [facility] [id number] 09:51:19 11:12:43 Gabriella C INSOLE STIFFENER 350.1.13.10 Visit REGIONAL 4.2.7.2.686 MATERNAL [id number] & [address] 2020-10-28 2020-10-28 Outpatient R AKINSIPE, [facility] [id number] Univers 09:30:00 09:30:00 GABRIELLA ity o f [facility] 2020-10-28 2020-10-28 Yamila VENEGAS 1.2.840.114 [id number] 00:00:00 00:00:00 Only Unassigned, ERINN 350.1.13.10 [place] [facility] 4.2.7.2.686 [id number] 2018-11-20 2018-11-20 Outpatient [place] [id number] Common 13:30:00 13:30:00 t [facility] [address] [facility] Results Test Description Test Time Test Comments Results Result [facility] e Comments TOTAL BETA HCG 2022-02-01 BETA University of ASSAY 04:46:10 HCG<2.39Non-preg [facility] dical nant female and Branch male patients: <5 mIU/mL01/31/2022 11:46 PM [facility] Gestational Age ?Range (mIU/mL) 1-10 ?Weeks ?[id number] Weeks ?[id number]- 22 Weeks ?[id number] 0 Weeks ?[phone] Biotin has been reported to cause a negative bias, interpret results relative to patient's use of biotin.
[2022-04-03] MEDS ORDERED: KETOROLAC 30 MG/ML INJ ONE (02:40)
[2022-04-03] MEDS ORDERED: HYDROCODONE/APAP 10/325 TAB ONE (02:40)
--- NOTE | 2022-04-03 03:13 | ER ---
Nurse's Notes [facility] Name: Ceci Harrell Age: 32 yrs Sex: Female : 1990 Arrival Date: 04/03/2022 Time: 01:44 Bed 28 Private MD: Diagnosis: Dental root caries;Dental pain Presentation: 04/03 02:02 Chief complaint: Patient screaming into blanket. Patient will answer questions in short tw5 screaming bursts. Patients main complaint is toothache. Coronavirus screen: Vaccine status: Patient reports being unvaccinated. Ebola Screen: Patient negative for fever greater than or equal to 101.5 degrees Fahrenheit, and additional compatible Ebola Virus Disease symptoms Patient denies exposure to infectious person. Patient denies travel to an Ebola-affected area in the 21 days before illness onset. Initial Sepsis Screen: Does the patient meet any 2 criteria? No. Patient's initial sepsis screen is negative. Does the patient have a suspected source of infection? No. Patient's initial sepsis screen is negative. Risk Assessment: Do you want to hurt yourself or someone else? Patient reports no desire to harm self or others. Onset of symptoms is unknown. 02:02 Method Of Arrival: Ambulatory tw5 02:02 Acuity: KYA 4 tw5 Triage Assessment: 02:08 General: Appears distressed, Behavior is screaming. Pain: Pain. EENT: Reports pain. tw5 Historical: - Allergies: 02:08 No Known Allergies; tw5 - Home Meds: 02:08 vitamins [Active]; tw5 - PMHx: 02:08 ectopic ; tw5 - PSHx: 02:08 None; tw5 - Immunization history:: Adult Immunizations not up to date. - Social history:: Smoking status: Reported history of juuling and/or vaping. Screenin:48 Abuse screen: Denies threats or abuse. Denies injuries from another. Nutritional tw5 screening: No deficits noted. Tuberculosis screening: No symptoms or risk factors identified. Fall Risk None identified. Assessment: 02:48 General: Behavior is inappropriate for age, screaming. Pain: Pain currently is 10 out tw5 of 10 on a pain scale. Cardiovascular: No deficits noted. Respiratory: No deficits noted. Vital Signs: 02:02 BP 137 / 121; Pulse 82; Resp 18; Temp 98; Pulse Ox 98% ; Weight 58.97 kg; Height 5 ft. tw5 2 in. (157.48 cm); Pain 10/10; 03:15 BP 125 / 90; Pulse 73; Resp 18; Pulse Ox 100% on R/A; tw5 03:26 BP 109 / 60; Pulse 77; Resp 20 S; Pulse Ox 94% on R/A; jb4 02:02 Body Mass Index 23.78 (58.97 kg, 157.48 cm) tw5 ED Course: 01:44 Patient arrived in ED. jj6 01:46 Krysta De MD is Attending Physician. sd2 02:07 Triage completed. tw5 02:48 Georgiana Nunes is Primary Nurse. tw5 02:48 Patient has correct armband on for positive identification. Adult w/ patient. Door tw5 closed. 02:48 No provider procedures requiring assistance completed. Patient did not have IV access tw5 during this emergency room visit. 03:27 Arm band placed on. jb4 Administered Medications: 02:46 Not Given (Physician Discretion): penicillin VK 500 mg PO once sd2 02:50 Drug: Ketorolac 60 mg Route: IM; Site: left gluteus; tw5 03:27 Follow up: Response: No adverse reaction jb4 02:50 Drug: [place] (HYDROcodone-acetaminophen) 10 mg-325 mg 1 tabs Route: PO; tw5 03:27 Follow up: Response: No adverse reaction jb4 02:58 Drug: Clindamycin 300 mg Route: PO; tw5 03:27 Follow up: Response: No adverse reaction jb4 Medication: 02:48 VIS not applicable for this client. tw5 Outcome: 03:12 Discharge ordered by . sd2 03:27 Discharged to home ambulatory, with significant other. jb4 03:27 Condition: stable 03:27 Discharge instructions given to patient, significant other, Instructed on discharge instructions, follow up and referral plans. medication usage, Demonstrated understanding of instructions, follow-up care, medications, Prescriptions given X 3. 03:28 Patient left the ED. jb4 Signatures: Santhosh Larsen, RN RN jb4 Georgiana Nunes tw5 Olga Lidia Mccullough jj6 Krysta De MD MD sd2
--- NOTE | 2022-04-03 03:13 | EDPHYS ---
Physician Documentation [facility] Name: Ceci Harrell Age: 32 yrs Sex: Female : 1990 Arrival Date: 04/03/2022 Time: 01:44 Bed 28 Private MD: ED Physician Krysta De HPI: 04/03 03:08 This 32 yrs old Female presents to ER via Ambulatory with complaints of Toothache, Jaw sd2 Pain. 03:08 32 yo F presents with CC of R sided toothache and jaw pain worsening for the past few sd2 days. States ongoing dentition issues but has not seen a dentist in quite some time. Reports no relief of pain with Tylenol or Ibuprofen at home. Denies fever or vomiting. . Historical: - Allergies: 02:08 No Known Allergies; tw5 - Home Meds: 02:08 vitamins [Active]; tw - PMHx: 02:08 ectopic ; - PSHx: 02:08 None; tw - Immunization history:: Adult Immunizations not up to date. - Social history:: Smoking status: Reported history of juuling and/or vaping. ROS: 03:08 Constitutional: Negative for fever, chills, and weight loss, Eyes: Negative for injury, sd2 pain, redness, and discharge, ENT: Negative for injury, and discharge, Positive for dental pain Skin: Negative for injury, rash, and discoloration, Neuro: Negative for headache, numbness and tingling. Exam: 03:08 Constitutional: This is a well developed, well nourished patient who is awake, alert, sd2 and in no acute distress. Head/Face: Normocephalic, atraumatic. Eyes: EOMI, normal conjunctiva bilaterally ENT: Nares patent. No nasal discharge, no septal abnormalities noted. Tympanic membranes are normal and external auditory canals are clear. Oropharynx with no redness, swelling, or masses, exudates, or evidence of obstruction, uvula midline. Mucous membranes moist. Overall poor dentition with R side upper and lower molar noted to be sources of pain with gingival changes noted to both areas. NO visible abscess. Skin: Warm, dry with normal turgor. Normal color with no rashes, no lesions, and no evidence of cellulitis. MS/ Extremity: Pulses equal, no cyanosis. Neurovascular intact. Full, normal range of motion. Ambulatory without difficulty. Psych: Awake, alert, with orientation to person, place and time. Behavior, mood, and affect are within normal limits. Vital Signs: 02:02 BP 137 / 121; Pulse 82; Resp 18; Temp 98; Pulse Ox 98% ; Weight 58.97 kg; Height 5 ft. tw5 2 in. (157.48 cm); Pain 10/10; 03:15 BP 125 / 90; Pulse 73; Resp 18; Pulse Ox 100% on R/A; tw5 03:26 BP 109 / 60; Pulse 77; Resp 20 S; Pulse Ox 94% on R/A; jb4 02:02 Body Mass Index 23.78 (58.97 kg, 157.48 cm) tw5 MDM: 01:57 Patient medically screened. sd2 03:08 Differential diagnosis: dental caries, gingivitis, dental abscess, pericoronitis, sd2 aphthous ulcers, acute necrotizing ulcerative gingivitis, gingivostomatitis, among others. Data reviewed: vital signs, nurses notes. Counseling: I had a detailed discussion with the patient and/or guardian regarding: the historical points, exam findings, and any diagnostic results supporting the discharge/admit diagnosis, the need for outpatient follow up, to return to the emergency department if symptoms worsen or persist or if there are any questions or concerns that arise at home. ED course: No signs of drainable abscess at this time. Pain addressed and controlled and patient discharged with oral antibiotics. She verbalizes understanding of discharge plan and need for follow up with dentist for definitive treatment as well as strict return precautions. . Administered Medications: 02:46 Not Given (Physician Discretion): penicillin VK 500 mg PO once sd2 02:50 Drug: Ketorolac 60 mg Route: IM; Site: left gluteus; tw5 03:27 Follow up: Response: No adverse reaction jb4 02:50 Drug: [place] (HYDROcodone-acetaminophen) 10 mg-325 mg 1 tabs Route: PO; tw5 03:27 Follow up: Response: No adverse reaction jb4 02:58 Drug: Clindamycin 300 mg Route: PO; tw5 03:27 Follow up: Response: No adverse reaction jb4 Disposition Summary: 04/03/22 03:12 Discharge Ordered Location: Home sd2 Problem: new sd2 Symptoms: have improved sd2 Condition: Stable sd2 Diagnosis - Dental root caries sd2 - Dental pain sd2 Followup: sd2 - With: Private Physician - When: 2 - 3 days - Reason: Recheck today's complaints, Continuance of care, Re-evaluation by your physician Followup: sd2 - With: Emergency Department - When: As needed - Reason: Discharge Instructions: - Discharge Summary Sheet sd2 - Dental Caries, Adult sd2 - Dental Pain sd2 Forms: - Medication Reconciliation Form sd2 - Thank You Letter sd2 - Antibiotic Education sd2 - Prescription Opioid Use sd2 Prescriptions: - Clindamycin HCl 300 mg Oral Capsule - take 1 capsule by ORAL route every 6 hours for 10 days; 40 capsule; Refills: 0, sd2 Product Selection Permitted - Ibuprofen 600 mg Oral Tablet - take 1 tablet by ORAL route every 6 hours As needed take with food; 20 tablet; sd2 Refills: 0, Product Selection Permitted - Tylenol-Codeine #3 300 mg-30 mg Oral - take 1 tablet by ORAL route every 6 hours As needed; 12 tablet; Refills: 0, sd2 Product Selection Permitted Signatures: Georgiana Nunes tw5 Krysta De MD MD sd2 Santhosh Larsen RN jb4
[2022-04-03 03:31] VITALS: TEMP 98
[2022-04-03 03:33] VITALS: BP 109/60; O2SAT 94
== END 2022-04-03 03:28 | disposition home or self-care (01) ==
LOC: ER 01:38
DX: K02.7 Dental root caries (principal)
CPT/HCPCS: 96372; 99283

== ENCOUNTER 2024-12-28 17:45 | Emergency (ER) | payer OTHER, SELFPAY ==
--- OUTSIDE RECORDS SUMMARY | 2024-12-28 17:50 | XMS REPORT | Continuity of Care Document ---
Author Name Unknown Address [address] [facility] [address] [place] [address] [facility] Address [address] [facility] [address] [place] [address] Care Team Providers Care Human Geography Faculty Member Name Role Phone Pcp, Patient Does Not Have A Primary Care Physic zaida Ileana Hardwick Attending Clinician Unavailable Yvan Mitchell Attending Clinician Unavailable Jeannine Cabezas MD Attending Clinician [phone] Elena Valdez Attending Clinician + Lab, Ang - Db Attending Clinician Unavailable ELENA GRIFFITH Attending Clinician Unava ilable Doctor Unassigned, [place] Attending Clinician U navailable 1, [facility] Us Room Attending Clinician UnavaileJannine French MD Attending Clinician [phone] JEANNINE CABEZAS Attending Clinician Unavailable Elena Valdez Attending Clinician + Idalia Duran MD Attending Clinician [phone] Maribeth Sanderson MD Attending Clinician [phone] THEO TORRES Attending Clinician Unav ailable [facility] Attending Clinician Unavailable Doctor Unassigned, [place] Attending Clinician U navailable MAYTE KIM Attending Clinician Unavailable MAYTE KIM Attending Clinician Unavailable 3, [facility] Usg Room Attending Clinician Unavailradha Kim MD, Mayte Craig Attending Clinician [phone] Pob, [facility] Lab Main Attending Clinician Unavailbetsy Sultana RN, Nora Claros Attending Clinician Unavail able MATHEUS GOODE Attending Clinician Unavail able Jairo PARISH, Carmelo Attending Clinician [phone] José Luis Pierre MD Attending Clinician [phone] MARCUS GOLDSTEIN Attending Clinician Unavailab le Lab, Ang-Rmchp Attending Clinician Unavailable Marcus Hyde Attending Clinician [phone] CARMELO GILL Attending Clinician Unavailable Cameron ANTONY, Kamran Attending Clinician [phone] Robert ANTONY, Terrell Orona Attending Clinician [phone] KENISHA SWAIN Attending Clinician Unavailbetsy claros Fellow, [facility] Attending Clinician Un available Kenisha Swain MD Attending Clinician [phone] Rupa [facility] Attending Clinician + [facility] Attending Clinician Unava JEANNINE Barragan Admitting Clinician Unavailable Payers Payer Name Policy Type Policy Number Effective Date Expirati on Date Source [facility] [id number] 2022 00:00:00 [facility] [id number] 00:00:00 Problems Condition Name Condition Details Condition Category Status Onset Date Resolution Date Last Treatment Date Treating Clinician Comments Source Former tobacco use Former tobacco use Disease Active 8-19 00:00: 00 [facility] History of depression History of depression Disease Active 2020-05 2- 00:00: 00 [facility] Encounter for general adult medical examinatio n without abnormal findings Encounter for general adult medical examinatio n without abnormal findings Diagnosis Active [facility] Tobacco abuse counseling Tobacco abuse counseling Diagnosis Active [facility] 39 weeks gestation of 39 weeks gestation of Disease Resolve d 2022-0515 00:00: 00 2023-11-21 00:00:00 2023-11-21 16:29:43 [facility] Ectopic Ectopic Disease Resolve d 9-21 00:00: 00 2023-11-21 00:00:00 2023-11-21 16:29:42 Overview: Formattin g of this note is different from the original. Ceci Carranzan31 year oldAdmiss ion Date: 01/05/22Pa tient [...] Pierre MDObstetr ics and Gynecolog y, PGY-1 [facility] Susceptibl e to varicella (non-immun e), currently Susceptibl e to varicella (non-immun e), currently Disease Resolve d 6-18 00:00: 00 2023-11-21 00:00:00 2023-11-21 16:29:48 Overview: Formattin g of this note might be different from the original. Address pp [facility] Vaginal bleeding affecting early Vaginal bleeding affecting early Disease Resolve d 8- 00:00: 00 2022-09-13 00:00:00 2022-09-13 10:59:22 [facility] High risk due to recurrent loss, first trimester High risk due to recurrent loss, first trimester Disease Resolve d 8-19 00:00: 00 2022-09-13 00:00:00 2022-09-13 10:59:24 [facility] Vaginal bleeding in Vaginal bleeding in Disease Resolve d 1-06 00:00: 00 2021-12-30 00:00:00 2021-12-30 15:37:41 [facility] Gonorrhea, current Gonorrhea, current Disease Resolve d 1-04 00:00: 00 2021-12-30 00:00:00 2021-12-30 15:37:44 [facility] Tobacco use in Tobacco use in Disease Resolve d 2020-05 2-31 00:00: 00 2021-12-30 00:00:00 2021-12-30 15:37:40 [facility] Supervisio n of high-risk Supervisio n of high-risk Disease Resolve d -17 00:00: 00 2021-06-24 00:00:00 2021-06-24 09:55:48 [facility] Multiparit y Multiparit y Disease Resolve d 10-28 00:00: 00 2021-06-24 00:00:00 2021-06-24 09:55:47 [facility] History of miscarriag e History of miscarriag e Disease Resolve d -17 00:00: 00 2021-06-24 00:00:00 2021-06-24 09:55:52 [facility] Molluscum contagiosu m Molluscum contagiosu m Disease Resolve d 2-06 00:00: 00 2021-06-24 00:00:00 2021-06-24 09:55:50 [facility] Overweight (BMI 25.0-29.9) Overweight (BMI 25.0-29.9) Disease Resolve d 7-26 00:00: 00 2020-10-28 00:00:00 2020-10-28 10:17:27 [facility] Encounter for BCP ( control pills) initial prescripti on Encounter for BCP ( control pills) initial prescripti on Disease Resolve d 11-21 00:00: 00 2017-06-19 00:00:00 2017-06-19 14:53:33 [facility] Family planning, IUD (intrauter ine device) check/rein sertion/re moval Family planning, IUD (intrauter ine device) check/rein sertion/re moval Disease Resolve d 11-21 00:00: 00 2017-03-12 00:00:00 2017-03-12 13:48:41 [facility] Allergies, Adverse Reactions, Alerts Allergy Name Allergy Type Status Severity Reaction(s) Onset Date Inactive Date Treating Clinician Comments Source NO KNOWN ALLERGIE S Drug Class Active [facility] Social History Social Habit Start Date Stop Date Quantity Comments Source ASSERTION 2023-10-20 00:00:00 Not [facility] History of Occupation [facility] Alcoholic beverage intake 2024-09-08 00:00:00 2024-09-08 00:00:00 .14 /d [facility] Cigarettes smoked current (pack per day) - Reported 2023-11-21 00:00:00 2023-11-21 00:00:00 [facility] Cigarette pack-years 2023-11-21 00:00:00 2023-11-21 00:00:00 [facility] Tobacco use and exposure 2023-11-21 00:00:00 2023-11-21 00:00:00 Smokeless tobacco non-user [facility] Alcohol intake 2023-04-18 00:00:00 2023-04-18 00:00:00 .14 /d [facility] History of Social function 2023-02-22 00:00:00 2023-02-22 00:00:00 [facility] Exposure to SARS-CoV-2 (event) 2022-11-05 00:00:00 2022-11-15 10:13:00 Not sure [facility] History of tobacco use 2017-05-14 00:00:00 2022-06-12 00:00:00 Cigarette Smoker [facility] Sex assigned at 1990 00:00:00 1990 00:00:00 [facility] Smoking Status Start Date Stop Date Source Ex-smoker 2023-11-21 00:00:00 2023-11-21 00:00:00 U [facility] Medications Ordered Medication Name Filled Medication Name Start Date Stop Date Current Medication? Ordering Clinician Indication Dosage Frequency Signature (SIG) Comments Components Source ferrous sulfate 325 mg (65 mg iron) tablet 12-02 00:00: 00 Yes [id number] 325mg Take 1 tablet by mouth in the morning. [facility] vit no.130-iron -folic ( VITAMIN) 11-29 00:00: 00 Yes [id number] 1{tbl} Take 1 tablet by mouth in the morning. [facility] vit no.130-iron -folic ( VITAMIN) 05-22 00:00: 00 11-29 00:00 :00 No [id number] 1{tbl} Take 1 tablet by mouth in the morning. [facility] vit no.130-iron -folic ( VITAMIN) 2022-05 00:00: 00 Yes [id number] 1{tbl} Take 1 tablet by mouth in the morning. [facility] rho(D) immune globulin (RHOGAM) syringe 300 mcg 2022-05 00:16: 51 Yes 300ug 300 mcg, Intramuscu lar, ONCE, For 1 dose, Conditiona l, Routine [facility] ibuprofen (IBU) tablet 600 mg 2022-05 00:16: 46 Yes 600mg 600 mg, Oral, Q6HPRN, Starting on Sun03/28/23 at 1816, Until Discontinu ed, Routine, Pain (scale 4-6) [facility] acetaminoph en (TYLENOL) tablet 650 mg 2022-05 00:16: 46 Yes 650mg 650 mg, Oral, Q6HPRN, Starting on Sun03/28/23 at 1816, Until Discontinu ed, Routine, Pain (scale 1-3) [facility] diphenhydrA MINE (BENADRYL) tablet 25 mg 2022-05 00:16: 46 Yes 25mg 25 mg, Oral, Q6HPRN, Starting on Sun03/28/23 at 1816, Until Discontinu ed, Routine, Sleep, Itching [facility] ondansetron (ZOFRAN (PF)) injection 4 mg 2022-05 00:16: 46 Yes 4mg 4 mg, Slow IV Push, Q8HPRN, Starting on Sun03/28/23 at 1816, Until Discontinu ed, Routine, Nausea and Vomiting (N/V) [facility] simethicone (GAS RELIEF (SIMETHICON E)) chewable tablet 160 mg 2022-05 00:16: 46 Yes 160mg 160 mg, Oral, PC+HSPRN, Starting on Sun03/28/23 at 181, Until Discontinu ed, Routine, Gas [facility] docusate (COLACE) capsule 200 mg 2022-05 00:16: 46 Yes 200mg 200 mg, Oral, QDAILYPRN, Starting on Sun03/28/23 at 1816, Until Discontinu ed, Routine, Constipati on [facility] magnesium hydroxide (MILK OF MAGNESIA) 400 mg/5 mL suspension 30 mL 2022-05 00:16: 46 Yes 30mL 30 mL, Oral, QDAILYPRN, Starting on Sun03/28/23 at 1816, Until Discontinu ed, Routine, Constipati on [facility] benzocaine- menthol (DERMOPLAST ) 20-0.5 % topical spray 2022-05 00:16: 46 Yes Topical, PRN, Starting on Sun03/28/23 at 1816, Until Discontinu ed, Routine, Perineum discomfort [facility] vit no.130-iron -folic ( VITAMIN) 2022-05 00:00: 00 Yes [id number] 1{tbl} Take 1 tablet by mouth in the morning. [facility] docusate 100 mg capsule docusate 100 mg capsule 2022-05 00:00: 00 Yes [id number] 200mg Take 2 capsules by mouth once daily as needed for Constipati on. [facility] ferrous sulfate 325 mg (65 mg iron) tablet 2022-05 00:00: 00 11-29 00:00 :00 No [id number] 325mg Take 1 tablet by mouth in the morning. [facility] ibuprofen 600 mg tablet 2022-05 00:00: 00 11-20 00:00 :00 No [id number] 600mg Take 1 tablet by mouth every 6 (six) hours as needed (Pain). Take with food or milk. [facility] oxytocin (PITOCIN) 30 units in NS 500 mL IV infusion 2022-05 22:43: 14 Yes 600mL/h 600 mL/hr, IV Infusion, PRN, For post delivery uterine atony., Starting on Sun03/28/[address] at 600 mL/hr for 1 hr then 150 mL/hr for 1 hr.
[facility] oxytocin (PITOCIN) 30 units in NS 500 mL IV infusion 2022-05 22:43: 14 Yes 300mL/h 300 mL/hr, IV Infusion, SEE-INSTRU CTIONS, Starting on Sun03/28/[address] at 300 mL/hr for 1 hr then 150 mL/hr for 1 hr. For post delivery uterotonic .
[facility] sodium citrate-cit sagar acid (BICITRA) 500-334 mg/5 mL solution 30 mL 2022-05 21:35: 50 03-28 21:59 :00 No 30mL 30 mL, Oral, PRE-PROCED URE ONCE, 1 dose, Starting on Sun03/28/23 at 1535, Until Sun03/28/23 at 1559, Routine, Surgery/Pr ocedure [facility] misoprostol (CYTOTEC) quarter-tab let 25 mcg 2022-05 19:00: 00 03-28 19:26 :00 No 25ug 25 mcg, Vaginal, ONCE, 1 dose, On Sun03/28/23 at 1300, Routine [facility] D5W-LR IV infusion 1,000 mL 2022-05 16:19: 11 03-29 00:16 :50 No 1000mL at 1-125 mL/hr, IV Infusion, TITRATE, Starting on Sun03/28/23 at 1019, Until Sun03/28/23 at 1816, Routine [facility] ondansetron (ZOFRAN) 4 mg tablet -09 00:00: 00 03-29 00:00 :00 No [id number] 4mg Take 1 tablet by mouth every 8 (eight) hours as needed for Nausea and Vomiting (N/V) or N/V unresponsi ve to Promethazi ne. [facility] PROGESTERON E MICRONIZED TRANSDERMAL 08-08 10:15: 10 08-08 00:00 :00 No Apply to skin. [facility] PROGESTERON E MICRONIZED TRANSDERMAL 12-30 14:32: 25 Yes Apply to skin. [facility] multivitami n ( VITAMIN) tablet 2020-05 00:00: 00 Yes [id number] 1{tbl} Take 1 tablet by mouth daily. [facility] multivitami n ( VITAMIN) tablet 2020-05 00:00: 00 03-29 00:00 :00 No [id number] 1{tbl} Take 1 tablet by mouth daily. [facility] foLIC acid 1 mg tablet 2020-05 00:00: 00 03-29 00:00 :00 No [id number] 1mg Take 1 tablet by mouth daily. [facility] multivitami n ( VITAMIN) tablet 10-28 00:00: 00 Yes [id number] 1{tbl} Take 1 tablet by mouth daily. [facility] multivitami n ( VITAMIN) tablet 10-28 00:00: 00 03-29 00:00 :00 No [id number] 1{tbl} Take 1 tablet by mouth daily. [facility] 1 1 Yes Yvan Diop not defined [facility] Immunizations Ordered Immunization Name Filled Immunization Name Date Status Comments Source TDAP 2023-01-11 00:00:00 Completed [facility] TDAP 2023-01-11 00:00:00 Completed [facility] Influenza Virus Vaccine 2017-12-26 00:00:00 Completed Influenza Virus Vaccine 2017-12-26 00:00:00 Completed [facility] Influenza Virus Vaccine 2017-12-26 00:00:00 Completed [facility] Influenza Virus Vaccine 2017-12-26 00:00:00 Completed [facility] Influenza Virus Vaccine 2017-12-26 00:00:00 Completed [facility] Influenza Virus Vaccine 2017-12-26 00:00:00 Completed [facility] Influenza Virus Vaccine 2017-12-26 00:00:00 Completed [facility] Influenza Virus Vaccine 2017-12-26 00:00:00 Completed [facility] Influenza Virus Vaccine 2017-12-26 00:00:00 Completed [facility] Influenza Virus Vaccine 2017-12-26 00:00:00 Completed [facility] Influenza Virus Vaccine 2017-12-26 00:00:00 Completed [facility] Influenza Virus Vaccine 2017-12-26 00:00:00 Completed [facility] Influenza Virus Vaccine 2017-12-26 00:00:00 Completed [facility] Influenza Virus Vaccine 2017-12-26 00:00:00 Completed [facility] Influenza Virus Vaccine 2017-12-26 00:00:00 Completed [facility] Influenza Virus Vaccine Unknown Completed [facility] Influenza Virus Vaccine Unknown Completed [facility] Influenza Virus Vaccine Unknown Completed [facility] Influenza Virus Vaccine Unknown Completed [facility] Influenza Virus Vaccine Unknown Completed [facility] Influenza Virus Vaccine Unknown Completed [facility] Influenza Virus Vaccine Unknown Completed [facility] Influenza Virus Vaccine Unknown Completed [facility] Influenza Virus Vaccine Unknown Completed [facility] Influenza Virus Vaccine Unknown Completed [facility] Influenza Virus Vaccine Unknown Completed [facility] Influenza Virus Vaccine Unknown Completed [facility] Influenza Virus Vaccine Unknown Completed [facility] TDAP Unknown Completed [facility] Influenza Virus Vaccine Unknown Completed [facility] TDAP Unknown Completed [facility] Influenza Virus Vaccine Unknown Completed [facility] TDAP Unknown Completed [facility] Influenza Virus Vaccine Unknown Completed [facility] TDAP Unknown Completed [facility] Influenza Virus Vaccine Unknown Completed [facility] TDAP Unknown Completed [facility] Influenza Virus Vaccine Unknown Completed [facility] TDAP Unknown Completed [facility] Influenza Virus Vaccine Unknown Completed [facility] TDAP Unknown Completed [facility] Influenza Virus Vaccine Unknown Completed [facility] TDAP Unknown Completed [facility] Influenza Virus Vaccine Unknown Completed [facility] TDAP Unknown Completed [facility] Influenza Virus Vaccine Unknown Completed [facility] TDAP Unknown Completed [facility] Influenza Virus Vaccine Unknown Completed [facility] TDAP Unknown Completed [facility] Influenza Virus Vaccine Unknown Completed [facility] TDAP Unknown Completed [facility] Influenza Virus Vaccine Unknown Completed [facility] TDAP Unknown Completed [facility] Influenza Virus Vaccine Unknown Completed [facility] TDAP Unknown Completed [facility] Influenza Virus Vaccine Unknown Completed [facility] TDAP Unknown Completed [facility] Influenza Virus Vaccine Unknown Completed [facility] TDAP Unknown Completed [facility] Influenza Virus Vaccine Unknown Completed [facility] TDAP Unknown Completed [facility] Influenza Virus Vaccine Unknown Completed [facility] TDAP Unknown Completed [facility] Influenza Virus Vaccine Unknown Completed [facility] TDAP Unknown Completed [facility] Influenza Virus Vaccine Unknown Completed [facility] TDAP Unknown Completed [facility] Influenza Virus Vaccine Unknown Completed [facility] Influenza Virus Vaccine Unknown Completed [facility] Influenza Virus Vaccine Unknown Completed [facility] Influenza Virus Vaccine Unknown Completed [facility] Influenza Virus Vaccine Unknown Completed [facility] Influenza Virus Vaccine Unknown Completed [facility] Influenza Virus Vaccine Unknown Completed [facility] Influenza Virus Vaccine Unknown Completed [facility] Influenza Virus Vaccine Unknown Completed [facility] Influenza Virus Vaccine Unknown Completed [facility] Influenza Virus Vaccine Unknown Completed [facility] Influenza Virus Vaccine Unknown Completed [facility] Influenza Virus Vaccine Unknown Completed [facility] Influenza Virus Vaccine Unknown Completed [facility] Influenza Virus Vaccine Unknown Completed [facility] Influenza Virus Vaccine Unknown Completed [facility] Vital Signs Vital Name Observation Time Observation Value Comments Duc arriola Systolic blood pressure 2023-12-19 19:24:00 113 mm[Hg] [facility] Diastolic blood pressure 2023-12-19 19:24:00 70 mm[Hg] [facility] Heart rate 2023-12-19 19:24:00 90 /min Un[facility] Body temperature 2023-12-19 19:24:00 37.11 Anila [facility] Body height 2023-12-19 19:24:00 157.5 cm [facility] Body weight 2023-12-19 19:24:00 68.493 kg [facility] BMI 2023-12-19 19:24:00 27.62 kg/m2 [facility] Oxygen saturation in Arterial blood by Pulse oximetry 2023-12-19 19:24:00 98 /min [facility] Systolic blood pressure 2023-11-21 20:05:00 127 mm[Hg] [facility] Diastolic blood pressure 2023-11-21 20:05:00 74 mm[Hg] [facility] Heart rate 2023-11-21 20:05:00 76 /min Un[facility] Body temperature 2023-11-21 20:05:00 36.78 Anila [facility] Respiratory rate 2023-11-21 20:05:00 18 /min [facility] Body height 2023-11-21 20:05:00 157.5 cm [facility] Body weight 2023-11-21 20:05:00 66.679 kg [facility] BMI 2023-11-21 20:05:00 26.89 kg/m2 [facility] Systolic blood pressure 2023-04-18 16:39:00 120 mm[Hg] [facility] Diastolic blood pressure 2023-04-18 16:39:00 74 mm[Hg] [facility] Heart rate 2023-04-18 16:39:00 84 /min [facility] Body weight 2023-04-18 16:39:00 58.695 [facility] BMI 2023-04-18 16:39:00 23.67 kg/m2 [facility] Systolic blood pressure 2023-03-29 20:20:00 103 mm[Hg] [facility] Diastolic blood pressure 2023-03-29 20:20:00 69 mm[Hg] [facility] Heart rate 2023-03-29 20:20:00 61 /min [facility] Body temperature 2023-03-29 20:20:00 36.78 Anila [facility] Respiratory rate 2023-03-29 20:20:00 18 /min [facility] Oxygen saturation in Arterial blood by Pulse oximetry 2023-03-29 20:20:00 97 /min [facility] Body weight 2023-03-28 18:00:00 66.679 [facility] BMI 2023-03-28 18:00:00 26.89 kg/m2 [facility] Systolic blood pressure 2023 17:52:00 109 mm[Hg] [facility] Diastolic blood pressure 2023 17:52:00 66 mm[Hg] [facility] Heart rate 2023 17:52:00 76 /min [facility] Body weight 2023 17:52:00 66.679 kg [facility] BMI 2023 17:52:00 26.89 kg/m2 [facility] Systolic blood pressure 2023-03-13 16:28:00 105 mm[Hg] [facility] Diastolic blood pressure 2023-03-13 16:28:00 69 mm[Hg] [facility] Heart rate 2023-03-13 16:28:00 94 /min [facility] Body weight 2023-03-13 16:28:00 66.18 kg [facility] BMI 2023-03-13 16:28:00 26.69 kg/m2 [facility] Syst[facility] blood pressure 2023-03-08 16:48:00 110 mm[Hg] [facility] Diastolic blood pressure 2023-03-08 16:48:00 64 mm[Hg] [facility] Heart rate 2023-03-08 16:48:00 80 /min [facility] Body weight 2023-03-08 16:48:00 65.998 kg [facility] BMI 2023-03-08 16:48:00 26.61 kg/m2 [facility] Systolic blood pressure 2023-02-22 18:00:00 120 mm[Hg] [facility] Diastolic blood pressure 2023-02-22 18:00:00 69 mm[Hg] [facility] Heart rate 2023-02-22 18:00:00 78 /min Un[facility] Body temperature 2023-02-22 18:00:00 37.06 Anila [facility] Respiratory rate 2023-02-22 18:00:00 20 /min [facility] Body height 2023-02-22 18:00:00 157.5 cm [facility] Body weight 2023-02-22 18:00:00 64.955 kg [facility] BMI 2023-02-22 18:00:00 26.19 kg/m2 [facility] Oxygen saturation in Arterial blood by Pulse oximetry 2023-02-22 18:00:00 99 /min [facility] Systolic blood pressure 2023-02-07 16:35:00 112 mm[Hg] [facility] Diastolic blood pressure 2023-02-07 16:35:00 74 mm[Hg] [facility] Heart rate 2023-02-07 16:35:00 76 /min Un[facility] Body weight 2023-02-07 16:35:00 63.64 kg [facility] BMI 2023-02-07 16:35:00 25.66 kg/m2 [facility] Systolic blood pressure 2023-01-11 13:27:00 101 mm[Hg] [facility] Diastolic blood pressure 2023-01-11 13:27:00 61 mm[Hg] [facility] Heart rate 2023-01-11 13:27:00 70 /min Unive rs[facility] of [facility] Body weight 2023-01-11 13:27:00 62.506 kg [facility] BMI 2023-01-11 13:27:00 25.20 kg/m2 [facility] pressure 2022-12-13 16:28:00 102 mm[Hg] [facility] Diastolic blood pressure 2022-12-13 16:28:00 63 mm[Hg] [facility] Heart rate 2022-12-13 16:28:00 90 /min [facility]ive [facility] Body weight 2022-12-13 16:28:00 61.462 kg Univ [facility] BMI 2022-12-13 16:28:00 24.78 kg/m2 [facility] Systolic blood pressure 2022-11-15 16:15:00 97 mm[Hg] [facility] Diastolic blood pressure 2022-11-15 16:15:00 62 mm[Hg] [facility] Heart rate 2022-11-15 16:15:00 76 /min [facility] Body weight 2022-11-15 16:15:00 60.918 kg [facility] BMI 2022-11-15 16:15:00 24.56 kg/m2 [facility] Systolic blood pressure 2022-10-18 16:21:00 102 mm[Hg] [facility] Diastolic blood pressure 2022-10-18 16:21:00 67 mm[Hg] [facility] Heart rate 2022-10-18 16:21:00 98 /min [facility] Body height 2022-10-18 16:21:00 157.5 cm [facility] Body weight 2022-10-18 16:21:00 59.421 kg [facility] BMI 2022-10-18 16:21:00 23.96 kg/m2 [facility] Sy[facility] blood pressure 2022-09-19 16:09:00 114 mm[Hg] [facility] Diastolic blood pressure 2022-09-19 16:09:00 63 mm[Hg] [facility] Heart rate 2022-09-19 16:09:00 91 /min [facility] Body height 2022-09-19 16:09:00 157.5 cm [facility] Body weight 2022-09-19 16:09:00 58.712 kg [facility] BMI 2022-09-19 16:09:00 23.67 kg/m2 Univ ers[facility] Systolic blood pressure 2022-08-23 19:55:00 104 mm[Hg] [facility] Diastolic blood pressure 2022-08-23 19:55:00 69 mm[Hg] [place] [facility] Heart rate 2022-08-23 19:55:00 86 /min [facility] Body height 2022-08-23 19:55:00 157.5 cm [facility] Body weight 2022-08-23 19:55:00 59.467 kg [facility] BMI 2022-08-23 19:55:00 23.98 kg/m2 Univ [facility] Systolic blood pressure 2022-08-08 14:57:00 106 mm[Hg] [facility] Diastolic blood pressure 2022-08-08 14:57:00 68 mm[Hg] [place] [facility] Heart rate 2022-08-08 14:57:00 81 /min [facility] Body weight 2022-08-08 14:57:00 59.058 kg [facility] BMI 2022-08-08 14:57:00 23.81 kg/m2 Univ [facility] Systolic blood pressure 2022-08-03 15:51:00 126 mm[Hg] [facility] Diastolic blood pressure 2022-08-03 15:51:00 72 mm[Hg] [facility] Heart rate 2022-08-03 15:51:00 75 /min [facility] Body height 2022-08-03 15:51:00 157.5 cm Univ [facility] Body weight 2022-08-03 15:51:00 58.922 kg [facility] BMI 2022-08-03 15:51:00 23.76 kg/m2 [facility] Procedures Procedure Date / Time Performed Performing Clinician Source FIRST TRIMESTER ULTRASOUND 2023-12-19 20:36:00 Elena Griffith [facility] POCT URINALYSIS W/O SPECIFIC GRAVITY 2023-12-19 19:32:00 Elena Griffith [facility] US OB TRANSVAGINAL 2023-11-21 20:48:23 Jeannine Cabezas [facility] POCT TEST 2023-11-21 20:29:00 Jeannine Cabezas [facility] POCT URINALYSIS W/O SPECIFIC GRAVITY 2023-11-21 20:29:00 Jeannine Cabezas [facility] CBC WITH DIFF 2023-03-29 10:15:00 Abiola Lopez [facility] EXTRA TUBE LAV 2023-03-29 10:15:00 Jeannine Cabezas [facility] VENOUS CORD GAS 2023-03-28 22:49:00 Timi Lira [facility] CBC WITH DIFF 2023-03-28 17:59:00 Timi Lira [facility] HEPATITIS B SURFACE ANTIGEN 2023-03-28 17:59:00 Shara Lira [facility] HB ABO GROUPING 2023-03-28 17:59:00 Timi Lira [facility] RHO (D) IMMUNE GLOBULIN 2023-03-28 17:59:00 Nuria Lopez [facility] HIV 1/2 AG-AB WITH REFLEX 2023-03-28 17:59:00 Shara Hernandez [facility] SYPHILIS IGG/IGM 2023-03-28 17:59:00 Rafael Lira [facility] POCT URINALYSIS W/O SPECIFIC GRAVITY 2023-03-13 16:33:00 Jeannine Cabezas [facility] POCT URINALYSIS W/O SPECIFIC GRAVITY 2023-03-08 00:00:00 Jeannine Cabezas [facility] POCT URINALYSIS W/O SPECIFIC GRAVITY 2023-02-22 18:04:00 Jeannine Cabezas [facility] POCT URINALYSIS W/O SPECIFIC GRAVITY 2023-02-07 16:36:00 Jeannine Cabezas [facility] TDAP VACCINE, >11 YRS, IM 2023-01-11 14:53:17 Elena Gallego [facility] POCT URINALYSIS W/O SPECIFIC GRAVITY 2023-01-11 13:52:00 Jeannine Cabezas [facility] CONSENT/REFUSAL FOR DIAGNOSIS AND TREATMENT 2023-01-11 13:15:49 Doctor Unassigned, [facility] POCT URINALYSIS W/O SPECIFIC GRAVITY 2022-12-13 21:04:00 Jeannine Cabezas [facility] SECOND AND THIRD TRIMESTER ULTRASOUND 2022-12-04 16:03:00 Elena Griffith [facility] POCT URINALYSIS W/O SPECIFIC GRAVITY 2022-11-15 17:32:00 Jeannine Cabezas [facility] FIRE PREVENTION OFFICER CLINIC ULTRASOUND 2022-10-18 05:01:00 Doc tor Unassigned, [place] POCT URINALYSIS 2022-10-18 00:00:00 Carmelo Gill [facility] SCANNED LAB RESULTS 2022-09-19 05:01:00 Doctor U marni, [facility] POCT URINALYSIS W/O SPECIFIC GRAVITY 2022-09-19 00:00:00 Jeannine Cabezas [facility] POCT URINALYSIS 2022-08-23 00:00:00 Carmelo Gill [facility] US OB TRANSVAGINAL 2022-08-08 15:10:13 Jeannine Cabezas [facility] ASSIGNMENT OF BENEFITS 2022-08-05 15:21:06 Docto r Unassigned, [facility] POCT URINALYSIS W/O SPECIFIC GRAVITY 2022-08-03 16:06:00 Jeannine Cabezas [facility] INSURANCE CORRESPONDENCE 2022-06-27 06:01:00 Doc tor Unassigned, [facility] TOTAL BETA HCG ASSAY 2022-01-31 15:35:00 Russ Goode [facility] Encounters Start Date/Time End Date/Time Encounter Type Admission Type Attending [facility] Facility Care Department Encounter ID Source 2022-09-26 13:15:01 Outpatient Ileana Hardwick [facility] [id number] [facility] 2022-07-25 16:56:01 Outpatient Yvan Mitchell [facility] [id number] [facility] 2022-03-07 11:02:00 Outpatient Yvan Mitchell [facility] [id number] [facility] 2022-03-06 10:36:00 Outpatient Yvan Mitchell [facility] [id number] [facility] 2022-02-21 16:25:00 Outpatient Yvan Mitchell [facility] [id number] [facility] 2024-09-07 00:00:00 2024-09-16 09:19:08 Patient Secure Jeannine Turpin [facility] 1.2.840.114 350.1.13.10 4.2.7.2.686 [id number] [facility] 2024-09-09 00:00:00 2024-09-11 07:42:31 Telephone Elena Griffith [facility] 1.2.840.114 350.1.13.10 4.2.7.2.686 [id number] [facility] 2024-09-10 14:00:00 2024-09-10 14:00:00 Outpatient R [facility] [id number] [facility] 2024-09-08 14:00:00 2024-09-08 14:15:00 Porcelain Enamel Repairer Visit Lab, Elena Gordon Lab, [facility] 1.2840.114 350.1.13.10 4.2.7.2.686 [id number] [facility] 2024-09-08 14:00:00 2024-09-08 14:00:00 Outpatient R ELENA GRIFFITH [facility] [id number] [facility] 2024-09-07 00:00:00 2024-09-08 08:13:24 Patient Secure Msg Doctor Unassigned, [place] Doctor Unassigned, [place] 1.2840.114 350.1.13.10 4.2.7.2.686 [id number] [facility] 2023-12-27 00:00:00 2024-02-02 18:26:24 Patient Secure Msg Elena Griffith [facility] 1.2.840.114 350.1.13.10 4.2.7.2.686 [id number] [facility] 2023-11-30 00:00:00 2024-01-05 18:24:21 Patient Secure Msg Doctor Unassigned, [place] Doctor Unassigned, [place] 1.2840.114 350.1.13.10 4.2.7.2.686 [id number] [facility] 2023-12-24 00:00:00 2023-12-31 09:22:28 Telephone Elena Griffith [facility] 1.2.840.114 350.1.13.10 4.2.7.2.686 [id number] [facility] 2023-12-24 00:00:00 2023-12-28 14:54:41 Patient Secure Msg Elena Griffith [facility] 1.2.840.114 350.1.13.10 4.2.7.2.686 [id number] [facility] 2023-12-19 15:30:00 2023-12-19 16:23:25 Outpatient P ELENA GRIFFITH [facility] [id number] [facility] 2023-12-19 15:30:00 2023-12-19 16:23:25 Porcelain Enamel Repairer Visit 1, [facility] Usg Room Elena Griffith 1, [facility] Usg Room [facility] 1.2.840.114 350.1.13.10 4.2.7.2.686 [id number] [facility] 2023-12-19 13:40:00 2023-12-19 16:16:34 Routine Visit Elena Griffith [facility] 1.2.840.114 350.1.13.10 4.2.7.2.686 [id number] [facility] 2023-11-30 00:00:00 2023-12-03 07:01:42 RefJeannine Reynoso [facility] 1.2.840.114 350.1.13.10 4.2.7.2.686 [id number] [facility] 2023-11-21 15:00:00 2023-11-21 15:55:00 Outpatient R JEANNINE CABEZAS YVETTE [facility] [id number] [facility] 2023-11-21 15:00:00 2023-11-21 15:55:00 Initial Visit Jeannine Cabezas [facility] 1.2.840.114 350.1.13.10 4.2.7.2.686 [id number] [facility] 2023-11-08 00:00:00 2023-11-08 14:08:44 Telephone Jeannine Cabezas [facility] 1.0.114 350.1.13.10 4.2.7.2.686 [id number] [facility] 2023-06-05 11:40:00 2023-06-05 11:40:00 Outpatient R JEANNINE CABEZAS [facility] [id number] [facility] 2023-05-17 00:00:00 2023-05-17 00:00:00 Refill Elena Griffith [facility] 1.840.114 350.1.13.10 4.2.7.2.686 [id number] [facility] 2023-05-10 12:00:00 2023-05-10 12:00:00 Outpatient R JEANNINE CABEZAS [facility] [id number] [facility] 2023-04-18 10:40:00 2023-04-18 10:58:44 [facility] [id number] 2023-04-18 10:40:00 2023-04-18 10:58:44 [facility].114 350.1.13.10 4.2.7.2.686 [id number] [facility] 2023-03-28 07:58:00 2023-03-29 14:20:00 Inpatient P JEANNINE CABEZAS YVETTE [facility] [id number] [facility] 2023-03-28 07:58:00 2023-03-29 14:20:00 Hospital Encounter Jeannine Cabezas [facility] 1.840.114 350.1.13.10 4.2.7.2.686 [id number] [facility] 2023-03-28 15:46:48 2023-03-28 15:46:48 Anesthesia Event Renee Idalia Ball duc, [facility] 1.114 350.1.13.10 4.2.7.2.686 [id number] [facility] 2023 11:40:00 2023 12:21:16 Outpatient R JEANNINE CABEZAS [facility] [id number] [facility] 2023 11:40:00 2023 12:21:16 [facility] 1..114 350.1.13.10 4.2.7.2.686 [id number] [facility] 2023-03-13 11:20:00 2023-03-13 11:54:16 Outpatient R JEANNINE CABEZAS [facility] [id number] [facility] 2023-03-13 11:20:00 2023-03-13 11:54:16 [facility] [place] [facility] 1.114 350.1.13.10 4.2.7.2.686 [id number] [facility] 2023-03-08 11:20:00 2023-03-08 11:51:49 Outpatient R ELENA GRIFFITH [facility] [id number] [facility] 2023-03-08 11:20:00 2023-03-08 11:51:49 Routine Visit Elena Griffith [facility] 1..114 350.1.13.10 4.2.7.2.686 [id number] [facility] 2023-03-06 00:00:00 2023-03-06 00:00:00 Patient Secure Msg Elena Griffith [facility] 1..114 350.1.13.10 4.2.7.2.686 [id number] [facility] 2023-02-23 00:00:00 2023-02-23 00:00:00 [facility] 1.114 350.1.13.10 4.2.7.2.686 [id number] [facility] 2023-02-22 13:00:00 2023-02-22 13:17:26 Outpatient R GRIFFITH [facility] [id number] [facility] 2023-02-22 13:00:00 2023-02-22 13:17:[address] [facility] 1.114 350.1.13.10 4.2.7.2.686 [id number] [facility] 2023-02-07 11:20:00 2023-02-07 11:44:52 Outpatient R GRIFFITH [facility] [id number] [facility] 2023-02-07 11:20:00 2023-02-07 11:44:52 [facility] 1..114 350.1.13.10 4.2.7.2.686 [id number] [facility] 2023-01-30 11:40:00 2023-01-30 11:40:00 Outpatient R JEANNINE CABEZAS [facility] [id number] [facility] 2023-01-11 09:00:00 2023-01-11 09:15:00 Porcelain Enamel Repairer Visit [facility] 1.114 350.1.13.10 4.2.7.2.686 [id number] [facility] 2023-01-11 08:00:00 2023-01-11 08:50:37 Outpatient R ELENA GRIFFITH [facility] [id number] [facility] 2023-01-11 08:00:00 2023-01-11 08:50:37 Routine Visit Elena Griffith [facility] 1.0.114 350.1.13.10 4.2.7.2.686 [id number] [facility] 2023-01-11 00:00:00 2023-01-11 00:00:00 Orders Only Doctor Unassigned, [place] [facility] 1..114 350.1.13.10 4.2.7.2.686 [id number] [facility] 2022-12-13 11:00:00 2022-12-13 11:42:33 Outpatient R JEANNINE CABEZAS [facility] [id number] [facility] 2022-12-13 11:00:00 2022-12-13 11:42:33 [facility]ine [facility] 1..114 350.1.13.10 4.2.7.2.686 [id number] [facility] 2022-12-13 00:00:00 2022-12-13 00:00:00 Patient Secure Msg Doctor Unassigned, [place] [facility] 1..114 350.1.13.10 4.2.7.2.686 [id number] [facility] 2022-12-06 00:00:00 2022-12-06 00:00:00 Patient Secure Msg Doctor Unassigned, [place] 1.0.114 350.1.13.10 4.2.7.2.686 [id number] [facility] 2022-12-04 10:00:00 2022-12-04 11:23:40 Outpatient MAYTE ALFORD SHANNON [facility] [id number] [facility] 2022-12-04 10:00:00 2022-12-04 11:23:40 Porcelain Enamel Repairer Visit 3, [facility] Us Room Julio Mayte Kiara [facility] 1.114 350.1.13.10 4.2.7.2.686 [id number] [facility] 2022-11-20 00:00:00 2022-11-20 00:00:00 Patient Secure Msg Doctor Unassigned, [place] [facility] 1..114 350.1.13.10 4.2.7.2.686 [id number] [facility] 2022-11-15 11:20:00 2022-11-15 11:40:00 Routine Visit Jeannine Cabezas [facility] 1.114 350.1.13.10 4.2.7.2.686 [id number] [facility] 2022-11-15 11:20:00 2022-11-15 11:20:00 Outpatient R JEANNINE CABEZAS [facility] [id number] [facility] 2022-11-03 00:00:00 2022-11-03 00:00:00 Patient Secure Msg Doctor Unassigned, [place] [facility] 1.114 350.1.13.10 4.2.7.2.686 [id number] [facility] 2022-10-18 11:00:00 2022-10-18 15:48:33 Outpatient R ELENA GRIFFITH [facility] [id number] [facility] 2022-10-18 11:00:00 2022-10-18 15:48:33 Routine Visit Elena Griffith [facility] 1.114 350.1.13.10 4.2.7.2.686 [id number] [facility] 2022-10-18 11:45:00 2022-10-18 12:00:00 Porcelain Enamel Repairer Visit [facility] Elena Griffith [facility] 1.2.840.114 350.1.13.10 4.2.7.2.686 [id number] [facility] 2022-10-18 00:00:00 2022-10-18 00:00:00 Orders Only Doctor Unassigned, [place] [facility] 1.2.840.114 350.1.13.10 4.2.7.2.686 [id number] [facility] 2022-09-28 00:00:00 2022-09-28 00:00:00 Telephone [place] [facility] 1.2.840.114 350.1.13.10 4.2.7.2.686 [id number] [facility] 2022-09-19 12:00:00 2022-09-19 12:15:00 Porcelain Enamel Repairer Visit [facility] [place] [facility] 1.2.840.114 350.1.13.10 4.2.7.2.686 [id number] [facility] 2022-09-19 11:20:00 2022-09-19 11:40:00 Routine Visit [place] [facility] 1.2.840.114 350.1.13.10 4.2.7.2.686 [id number] [facility] 2022-09-19 11:20:00 2022-09-19 11:20:00 Outpatient R JEANNINE CABEZAS [facility] [id number] [facility] 2022-09-19 00:00:00 2022-09-19 00:00:00 Orders Only Doctor Unassigned, [place] [facility] 1.2.840.114 350.1.13.10 4.2.7.2.686 [id number] [facility] 2022-09-13 00:00:00 2022-09-13 00:00:00 Patient Secure Msg Doctor Unassigned, [place] [facility] 1.2840.114 350.1.13.10 4.2.7.2.686 [id number] [facility] 2022-08-28 00:00:00 2022-08-28 00:00:00 Patient Secure Msg Doctor Unassigned, [place] 1.0.114 350.1.13.10 4.2.7.2.686 [id number] [facility] 2022-08-23 15:00:00 2022-08-23 16:17:38 Outpatient R JEANNINE CABEZAS [facility] [id number] [facility] 2022-08-23 15:00:00 2022-08-23 16:17:38 Initial Visit [place] [facility] 1.840.114 350.1.13.10 4.2.7.2.686 [id number] [facility] 2022-08-23 15:45:00 2022-08-23 16:00:00 Porcelain Enamel Repairer Visit [facility] [place] [facility] 1.840.114 350.1.13.10 4.2.7.2.686 [id number] [facility] 2022-08-08 09:20:00 2022-08-08 09:40:00 Office Visit Raulito Jeannine [facility] 1.2840.114 350.1.13.10 4.2.7.2.686 [id number] [facility] 2022-08-08 09:20:00 2022-08-08 09:20:00 Outpatient R JEANNINE CABEZAS [facility] [id number] [facility] 2022-08-07 00:00:00 2022-08-07 00:00:00 Telephone [facility] 1..114 350.1.13.10 4.2.7.2.686 [id number] [facility] 2022-08-07 00:00:00 2022-08-07 00:00:00 Patient Secure Msg Doctor Unassigned, [place] [facility] 1..114 350.1.13.10 4.2.7.2.686 [id number] [facility] 2022-08-05 10:30:00 2022-08-05 10:45:00 Porcelain Enamel Repairer Visit P[facility], [facility] 1.84.114 350.1.13.10 4.2.7.2.686 [id number] [facility] 2022-08-05 10:30:00 2022-08-05 10:30:00 Outpatient R RAULITO JEANNINE [facility] [id number] [facility] 2022-08-05 00:00:00 2022-08-05 00:00:00 Orders Only Doctor Unassigned, [place] [facility] 1..114 350.1.13.10 4.2.7.2.686 [id number] [facility] 2022-08-04 00:00:00 2022-08-04 00:00:00 Patient Secure Msg Doctor Unassigned, [place] [facility] 1.114 350.1.13.10 4.2.7.2.686 [id number] [facility] 2022-08-03 11:30:00 2022-08-03 11:45:00 Porcelain Enamel Repairer Visit [facility] 1.840.114 350.1.13.10 4.2.7.2.686 [id number] [facility] 2022-08-03 10:20:00 2022-08-03 11:05:42 Outpatient R JEANNINE CABEZAS [facility] [id number] [facility] 2022-08-03 10:20:00 2022-08-03 11:05:42 Office Visit [facility] 1.0.114 350.1.13.10 4.2.7.2.686 [id number] [facility] 2022-07-26 00:00:00 2022-07-26 00:00:00 Patient Secure Msg Nora Sultana [facility] FIRE PREVENTION OFFICER [facility] 1.840.114 350.1.13.10 4.2.7.2.686 [id number] [facility] 2022-07-26 00:00:00 2022-07-26 00:00:00 Patient Secure Msg Doctor Unassigned, [place] [facility] 1.840.114 350.1.13.10 4.2.7.2.686 [id number] [facility] 2022-07-25 00:00:00 2022-07-25 00:00:00 [facility]phone [facility] 1.0.114 350.1.13.10 4.2.7.2.686 [id number] [facility] 2022-06-27 00:00:00 2022-06-27 00:00:00 Orders Only Doctor Unassigned, [place] [facility] 1.2840.114 350.1.13.10 4.2.7.2.686 [id number] [facility] 2022-05-15 09:00:00 2022-05-15 09:00:00 Outpatient R MATHEUS GOODE [facility] [id number] [facility] 2022-05-15 09:00:00 2022-05-15 09:00:00 Outpatient R MATHEUS GOODE [facility] [id number] [facility] 2022-04-19 00:00:00 2022-04-19 00:00:00 Telephone Carmelo Gill [facility] FIRE PREVENTION OFFICER [facility] 1..840.114 350.1.13.10 4.2.7.2.686 [id number] [facility] 2022-02-03 00:00:00 2022-02-03 00:00:00 Case Management José Luis Pierre [facility] 1..840.114 350.1.13.10 4.2.7.2.686 [id number] [facility] 2022-01-31 10:00:00 2022-01-31 10:37:38 Outpatient MARCUS HOUGH [facility] [id number] [place] [facility] 2022-01-31 10:00:00 2022-01-31 10:37:38 Porcelain Enamel Repairer Visit Lab, [facility] Marcus Goldstein [facility] FIRE PREVENTION OFFICER [facility] MATERNAL & CHILD [facility] 1..840.114 350.1.13.10 4.2.7.2.686 [id number] 107 [id number] [facility] 2022-01-26 14:45:00 2022-01-26 14:45:00 Outpatient CARMELO FERRARA [facility] [id number] [facility] 2022-01-20 12:45:00 2022-01-20 13:28:20 Outpatient CARMELO FERRARA [facility] [id number] [facility] 2022-01-20 12:45:00 2022-01-20 13:28:20 Porcelain Enamel Repairer [facility] FIRE PREVENTION OFFICER [facility] 1..114 350.1.13.10 4.2.7.2.686 [id number] 107 [id number] [facility] 2022-01-17 00:00:00 2022-01-17 00:00:00 Patient Secure Msg Kamran Barnes [facility] 1..114 350.1.13.10 4.2.7.2.686 [id number] [facility] 2022-01-13 15:15:00 2022-01-13 15:30:00 Porcelain Enamel Repairer Visit [facility] Terrell Jones [facility] 1..114 350.1.13.10 4.2.7.2.686 [id number] [facility] 2022-01-13 14:00:00 2022-01-13 15:17:04 Outpatient N KENISHA SWAIN [facility] [id number] [facility] 2022-01-13 14:00:00 2022-01-13 15:17:04 Routine Visit Fellow, [facility] Kenisha Purdy [facility] 1.114 350.1.13.10 4.2.7.2.686 [id number] [facility] 2022-01-13 14:00:00 2022-01-13 14:00:00 Outpatient R [facility] [id number] [facility] 2022-01-13 00:00:00 2022-01-13 00:00:00 Patient Secure Msg Doctor Unassigned, [place] [facility] 1..114 350.1.13.10 4.2.7.2.686 [id number] [facility] 2022-01-09 10:30:00 2022-01-09 10:30:00 Outpatient P [facility] [id number] [facility] 2022-01-05 00:00:00 2022-01-05 00:00:00 Telephone Carmelo Gill [facility] FIRE PREVENTION OFFICER [facility] CHILD [facility] 1.2.840.114 350.1.13.10 4.2.7.2.686 [id number] [facility] 2022-01-05 00:00:00 2022-01-05 00:00:00 Telephone Carmelo Gill [facility] FIRE PREVENTION OFFICER [facility] CHILD [facility] 1.2.840.114 350.1.13.10 4.2.7.2.686 [id number] 130 [id number] [facility] 2022-01-05 00:00:00 2022-01-05 00:00:00 Patient Secure Jairo Carmelo [facility] FIRE PREVENTION OFFICER [facility] CHILD [facility] 1.2.840.114 350.1.13.10 4.2.7.2.686 [id number] [facility] 2022-01-03 00:00:00 2022-01-03 00:00:00 Abstract Carmelo Gill [facility] FIRE PREVENTION OFFICER [facility] CHILD [facility] 1.2.840.114 350.1.13.10 4.2.7.2.686 [id number] 130 [id number] [facility] 2022-01-02 00:00:00 2022-01-02 00:00:00 Letter (Out) Jairo [facility] FIRE PREVENTION OFFICER [facility] CHILD [facility] 1.2.840.114 350.1.13.10 4.2.7.2.686 [id number] 130 [id number] [facility] 2022-01-02 00:00:00 2022-01-02 00:00:00 Patient Secure Nora Lyon [facility] FIRE PREVENTION OFFICER [facility] CHILD [facility] 1.2.840.114 350.1.13.10 4.2.7.2.686 [id number] 130 [id number] [facility] 2022-01-02 00:00:00 2022-01-02 00:00:00 Patient Secure Msg Doctor Unassigned, [place] [facility] FIRE PREVENTION OFFICER [facility] & CHILD [facility] 1.2.840.114 350.1.13.10 4.2.7.2.686 [id number] 130 [id number] [facility] 2021-12-30 13:30:00 2021-12-30 15:27:23 Outpatient CARMELO FERRARA [facility] [id number] [facility] 2021-12-30 13:30:00 2021-12-30 15:27:23 Initial Visit Carmelo Gill [facility] 1.2.840.114 350.1.13.10 4.2.7.2.686 [id number] [facility] 2021-12-30 00:00:00 2021-12-30 00:00:00 Orders Only Doctor Unassigned, [place] [facility] 1.2.840.114 350.1.13.10 4.2.7.2.686 [id number] [facility] 2021-12-29 00:00:00 2021-12-29 00:00:00 Patient Secure Msg Matheus Goode [facility] FIRE PREVENTION OFFICER [facility] & CHILD [facility] 1.2.840.114 350.1.13.10 4.2.7.2.686 [id number] 107 [id number] [facility] 2021-12-28 14:15:00 2021-12-28 14:15:00 Outpatient CARMELO FERRARA [facility] [id number] [facility] 2021-12-28 14:15:00 2021-12-28 14:15:00 Outpatient R CARMELO GILL [facility] [id number] [facility] 2021-08-16 08:30:00 2021-08-16 08:30:00 Outpatient R [facility] [id number] [facility] 2021-08-16 08:30:00 2021-08-16 08:30:00 Outpatient R MATHEUS GOODE [facility] [id number] [facility] 2021-08-11 00:00:00 2021-08-11 00:00:00 Patient Secure Msg Doctor Unassigned, [place] [facility] FIRE PREVENTION OFFICER [facility] & CHILD [facility] 1.840.114 350.1.13.10 4.2.7.2.686 [id number] 107 [id number] [facility] 2021-06-28 00:00:00 2021-06-28 00:00:00 Telephone Matheus Goode [facility] FIRE PREVENTION OFFICER [facility] CHILD [facility] 1.840.114 350.1.13.10 4.2.7.2.686 [id number] 107 [id number] [facility] 2021-06-28 00:00:00 2021-06-28 00:00:00 Patient Secure Msg Matheus Goode [facility].114 350.1.13.10 4.2.7.2.686 [id number] 107 [id number] [facility] 2021-06-24 08:15:00 2021-06-24 10:02:47 Outpatient R MATHEUS GOODE [facility] [id number] [facility] 2021-06-24 08:15:00 2021-06-24 10:02:47 Routine Visit Matheus Goode [facility] 1.840.114 350.1.13.10 4.2.7.2.686 [id number] 107 [id number] [facility] 2021-06-10 08:00:00 2021-06-10 08:00:00 Outpatient R MATHEUS GOODE [facility] [id number] [facility] 2021-06-02 11:00:00 2021-06-02 11:00:00 Outpatient R ARCHANAMARCELMATHEUS [facility] [id number] [facility] 2021-05-23 08:30:00 2021-05-23 08:30:00 Outpatient R ARCHANAMARCELMATHEUS [facility] [id number] [facility] 2021-05-23 08:30:00 2021-05-23 08:30:00 Outpatient R ARCHANAMARCELMATHEUS [facility] [id number] [facility] 2021-05-20 00:00:00 2021-05-20 00:00:00 Telephone Matheus Goode [facility] FIRE PREVENTION OFFICER [facility] MATERNAL & CHILD [facility] ..840.114 350.1.13.10 4.2.7.2.686 [id number] 107 [id number] [facility] 2021-05-19 08:30:00 2021-05-19 09:06:49 Outpatient R MATHEUS GOODE [facility] [id number] [facility] 2021-05-19 08:30:00 2021-05-19 09:06:49 Routine Visit Matheus Goode [facility] FIRE PREVENTION OFFICER [facility] & CHILD [facility] ..840.114 350.1.13.10 4.2.7.2.686 [id number] 107 [id number] [facility] 2021-05-19 08:00:00 2021-05-19 08:00:00 Outpatient R MATHEUS GOODE [facility] [id number] [facility] 2021-05-19 00:00:00 2021-05-19 00:00:00 Orders Only Doctor Unassigned, [place] [facility] 1.2.840.114 350.1.13.10 4.2.7.2.686 [id number] [facility] 2021-05-18 08:00:00 2021-05-18 09:03:05 Outpatient R MATHEUS GOODE [facility] [id number] [facility] 2021-05-18 08:00:00 2021-05-18 09:03:05 [facility] FIRE PREVENTION OFFICER [facility] & CHILD [facility] 1.840.114 350.1.13.10 4.2.7.2.686 [id number] 107 [id number] [facility] 2021-05-18 07:45:00 2021-05-18 07:45:00 Outpatient R [facility] [id number] [facility] 2021-05-18 00:00:00 2021-05-18 00:00:00 Patient Secure Msg Matheus Goode [facility] FIRE PREVENTION OFFICER [facility] CHILD [facility] 1.840.114 350.1.13.10 4.2.7.2.686 [id number] 107 [id number] [facility] 2021-05-18 00:00:00 2021-05-18 00:00:00 Patient Secure Msg Matheus Goode [facility] FIRE PREVENTION OFFICER [facility] CHILD [facility] 1.2840.114 350.1.13.10 4.2.7.2.686 [id number] 107 [id number] [facility] 2021-05-17 00:00:00 2021-05-17 00:00:00 Telephone Matheus Goode [facility] FIRE PREVENTION OFFICER [facility] 1.2840.114 350.1.13.10 4.2.7.2.686 [id number] 107 [id number] [facility] 2021-05-16 00:00:00 2021-05-16 00:00:00 Patient Secure Msg ArchanaMatheus lópez [facility] FIRE PREVENTION OFFICER [facility] & CHILD [facility] 1.2840.114 350.1.13.10 4.2.7.2.686 [id number] 107 [id number] [facility] 2021-05-14 00:00:00 2021-05-14 00:00:00 Patient Secure Msg Doctor Unassigned, [place] [facility] 1.2840.114 350.1.13.10 4.2.7.2.686 [id number] [facility] 2021-05-13 10:00:00 2021-05-13 11:28:35 Outpatient R MATHEUS GOODE [facility] [id number] [facility] 2021-05-13 10:00:00 2021-05-13 11:28:35 Initial Visit Matheus Goode [facility] FIRE PREVENTION OFFICER [facility] & CHILD [facility] 1.2840.114 350.1.13.10 4.2.7.2.686 [id number] 107 [id number] [facility] 2020-12-27 10:30:00 2020-12-27 10:30:00 Outpatient P [facility] [id number] [facility] 2020-12-06 00:00:00 2020-12-06 00:00:00 Patient Secure Msg Doctor Unassigned, [place] [facility] FIRE PREVENTION OFFICER [facility] & CHILD [facility] 1.2840.114 350.1.13.10 4.2.7.2.686 [id number] 107 [id number] [facility] 2020-12-02 00:00:00 2020-12-02 00:00:00 Patient Secure Msg Doctor Unassigned, [place] [facility] 1.2840.114 350.1.13.10 4.2.7.2.686 [id number] [facility] 2020-12-02 00:00:00 2020-12-02 00:00:00 Patient Secure Msg Doctor Unassigned, [place] [facility] 1.2840.114 350.1.13.10 4.2.7.2.686 [id number] [facility] 2020-11-24 11:00:00 2020-11-24 11:00:00 Outpatient R ARCHANAMARCELMATHEUS [facility] [id number] [facility] 2020-11-15 00:00:00 2020-11-15 00:00:00 Patient Secure Msg Matheus Goode [facility] FIRE PREVENTION OFFICER [facility] & CHILD [facility] 1.2840.114 350.1.13.10 4.2.7.2.686 [id number] 107 [id number] [facility] 2020-11-03 00:00:00 2020-11-03 00:00:00 Patient Secure Msg Matheus Goode [facility] FIRE PREVENTION OFFICER [facility] CHILD [facility] 1.0.114 350.1.13.10 4.2.7.2.686 [id number] 107 [id number] [facility] 2020-11-02 10:45:00 2020-11-02 10:45:00 Outpatient R MATHEUS GOODE [facility] [id number] [facility] 2020-11-02 00:00:00 2020-11-02 00:00:00 Patient Secure Msg Doctor Unassigned, [place] [facility] 1.20.114 350.1.13.10 4.2.7.2.686 [id number] [facility] 2020-11-01 00:00:00 2020-11-01 00:00:00 Patient Secure Msg Matheus Goode [facility] FIRE PREVENTION OFFICER [facility] 1.2840.114 350.1.13.10 4.2.7.2.686 [id number] [facility] 2020-11-01 00:00:00 2020-11-01 00:00:00 Patient Secure Msg Doctor Unassigned, [place] [facility] FIRE PREVENTION OFFICER [facility] & CHILD [facility] 1.2.840.114 350.1.13.10 4.2.7.2.686 [id number] 107 [id number] [facility] 2020-11-01 00:00:00 2020-11-01 00:00:00 Patient Secure Msg Doctor Unassigned, [place] [facility] FIRE PREVENTION OFFICER [facility] CHILD [facility] 1.2840.114 350.1.13.10 4.2.7.2.686 [id number] 107 [id number] [facility] 2020-10-30 00:00:00 2020-10-30 00:00:00 Patient Secure Msg Doctor Unassigned, [place] [facility] 1.2840.114 350.1.13.10 4.2.7.2.686 [id number] [facility] 2020-10-29 00:00:00 2020-10-29 00:00:00 Patient Secure Msg Doctor Unassigned, [place] [facility] FIRE PREVENTION OFFICER [facility] & CHILD [facility] 1.2840.114 350.1.13.10 4.2.7.2.686 [id number] 107 [id number] [facility] 2020-10-28 09:51:19 2020-10-28 11:12:43 Initial Visit Matheus Goode [facility] FIRE PREVENTION OFFICER [facility] & CHILD [facility] 1.2840.114 350.1.13.10 4.2.7.2.686 [id number] 2020-10-28 09:30:00 2020-10-28 09:30:00 Outpatient R MATHEUS GOODE [facility] [id number] [facility] 2020-10-28 00:00:00 2020-10-28 00:00:00 Orders Only Doctor Unassigned, [place] [facility] 1.2.840.114 350.1.13.10 4.2.7.2.686 [id number] 2020-10-28 00:00:00 2020-10-28 00:00:00 Patient Secure Msg Doctor Unassigned, [place] [facility] 1.2.840.114 350.1.13.10 4.2.7.2.686 [id number] [facility] 2018-11-20 13:30:00 2018-11-20 13:30:00 Outpatient [facility] Medicine [facility] [id number] [facility] Results Test Description Test Time Test Comments Results Result Co mments Source [facility] [id number] 20:29:00* Test Item Value Reference Range Interpretation Comme nts POCT PREG (test code = 1605) Positive On board controls acceptable with C Line (test code = 3574) Yes POCT PREG LOT # (test code = 3575) POCT PREG TEST DATE ( test code = 3576) Lab Interpretation (test cod e = 12687-5) Abnormal [facility] Urinalysis w/o Specific [id number] 20:29:00* Test Item Value Reference Range Interpretation Comme nts POCT PH U (test code = 3254) 6.5 mg/dl 5-8 POCT U LEUK EST (test code = 3263) NEG Negative - Negative POCT U NIT (test code = 3262) NEG Negative - Negati ve POCT U PROT (test code = 3259) TRACE Negative - Negat kamala POCT U GLU (test code = 3256) NEG Negative - Negati ve POCT U KETONE (test code = 3258) TRACE Negative - Negative POCT U BLD (test code = 3257) NEG Negative - Negati ve Lab Interpretation (test cod e = 29316-6) Abnormal [facility] - SYPHILIS [id number] 16:13:55* Test Item Value Reference Range Interpretation Comme nts Syphilis IgG/IgM (test code = 16845-2) Non-reactive Non-reactive PITER (test code = PITER) Non-reactive - No serologic evidence of T. pallidum infection. Cannot exclude incubating or early syphilis. Submit a second specimen in 2-4 weeks if syphilis is clinically suspected. Equivocal - Further testing to follow. Reactive - Further testing to follow. Lab Interpretation (test code = 76081-3) Normal [facility] (D) IMMUNE [id number] 00:17:25* Test Item Value Reference Range Interpretation Comme nts RHIG CANDIDATE? (test code = 5188) No- see comment Patient is not a candidate for RhIg- Patient is Rh Positive.Performed at [facility] Laboratory Services - [facility] Blood [address] [id number] Free: [phone] No. [id number] [facility] BrookVenous Cord [id number] 23:02:23* Test Item Value Reference Range Interpretation Comme [facility] VENOUS BASE EXCESS, CORD (test code = 1187653953) -4.0 mEq/L VENOUS PH, CORD (test code = 1295247438) 7.29 7.25-7.45 VENOUS PC02, CORD (test code = 6181613667) 49 See_Comment [Automated messa ge] The system which generated this result transmitted reference range: 27 - 49 mmHg. The reference range was not used to interpret this result as normal/abnormal. VENOUS PO2, CORD (test code = 8232121178) 21 See_Comment [Automated me ssage] The system which generated this result transmitted reference range: 17 - 41 mmHg. The reference range was not used to interpret this result as normal/abnormal. VENOUS BICARBONATE, CORD (test code = 7220982306) 23 See_Comment [Automated messa ge] The system which generated this result transmitted reference range: 12 - 29 mEq/L. The reference range was not used to interpret this result as normal/abnormal. [facility] BrookArterial Cord [id number] 22:58:24* Test Item Value Reference Range Interpretation Comme nts BASE EXCESS, CORD (test code = 7898696264) -5.6 mEq/L AC PH, CORD (BEAKER) (test code = 5575991030) 7.33 7.18-7.38 PC02, CORD (test code = 3876716452) 38 See_Comment [Automated messa ge] The system which generated this result transmitted reference range: 32 - 66 mmHg. The reference range was not used to interpret this result as normal/abnormal. PO2, CORD (test code = 8814748968) 25 See_Comment [Automated messa ge] The system which generated this result transmitted reference range: 10 - 30 mmHg. The reference range was not used to interpret this result as normal/abnormal. BICARBONATE, CORD (test code = 9752961411) 20 See_Comment [Automated messa ge] The system which generated this result transmitted reference range: 17 - 27 mEq/L. The reference range was not used to interpret this result as normal/abnormal. [facility] BrookHIV 1/2 AG-AB WITH [id number] 20:38:21* Test Item Value Reference Range Interpretation Comme nts HIV Semi-quantitative (test code = 43773-1) 0.09 Negative PITER (test code = PITER) Non-reactive for HIV-1 antigen and HIV-1/HIV-2 antibodies. ?No laboratory evidence of HIV infection. ?Repeat in 2-4 weeks if acute HIV infection is suspected. [facility] BrookHepatitis B Surface [id number] 19:27:48 * Test Item Value Reference Range Interpretation Comme nts HBsAg Semi-Quantitative (beena t code = 5195-3) 0.06 Negative [facility] BrookCBC with [id number] 18:13:50* Test Item Value Reference Range Interpretation Comme nts WBC (test code = 6690-2) 9.18 See_Comment [Automated messa ge] The system which generated this result transmitted reference range: 4.30 - 11.10 10*3/?L. The reference range was not used to interpret this result as normal/abnormal. RBC (test code = 789-8) 3.92 See_Comment L [Automated messa ge] The system which generated this result transmitted reference range: 3.93 - 5.25 10*6/?L. The reference range was not used to interpret this result as normal/abnormal. HGB (test code = 718-7) 11.2 g/dL 11.6-15.0 L HCT (test code = 4544-3) 32.8 % 35.7-45.2 L MCV (test code = 787-2) 83.7 fL 80.6-95.5 MCH (test code = 785-6) 28.6 pg 25.9-32.8 MCHC (test code = 786-4) 34.1 g/dL 31.6-35.1 RDW-SD (test code = 18105-5) 41.5 fL 39.0-49.9 RDW-CV (test code = 788-0) 13.7 % 12.0-15.5 PLT (test code = 777-3) 384 See_Comment H [Automated messa ge] The system which generated this result transmitted reference range: 166 - 358 10*3/?L. The reference range was not used to interpret this result as normal/abnormal. MPV (test code = 96699-7) 10.2 fL 9.5-12.9 NRBC/100 WBC (test code = 7428112568) 0.0 See_Comment [Automated blabfeed ssage] The system which generated this result transmitted reference range: 0.0 - 10.0 /100 WBCs. The reference range was not used to interpret this result as normal/abnormal. NRBC x10^3 (test code = 1034238500) See_Comment [Automated messa ge] The system which generated this result transmitted reference range: 10*3/?L. The reference range was not used to interpret this result as normal/abnormal. GRAN MAT (NEUT) % (test code = 770-8) 62.5 % IMM GRAN % (test code = 6535458482) 0.10 % LYMPH % (test code = 736-9) 24.9 % MONO % (test code = 5905-5) 9.8 % EOS % (test code = 713-8) 2.3 % BASO % (test code = 706-2) 0.4 % GRAN MAT x10^3(ANC) (test code = 7803251150) 5.73 10*3/uL 1.88-7.09 IMM GRAN x10^3 (test code = 2544876819) 0.00-0.06 LYMPH x10^3 (test code = 731-0) 2.29 10*3/uL 1.32-3.29 MONO x10^3 (test code = 742-7) 0.90 10*3/uL 0.33-0.92 EOS x10^3 (test code = 711-2) 0.21 10*3/uL 0.03-0.39 BASO x10^3 (test code = 704-7) 0.04 10*3/uL 0.01-0.07 Lab Interpretation (test code = 34317-8) Abnormal [facility] Brook[facility] and Screen - ONCE [id number] 18:07:00 * Test Item Value Reference Range Interpretation Comme nts ABO & RH (test code = 20) A POSITIVE IAT (test code = 1185) Negative [facility] SPECIFIC [id number] 16:33:00* Test Item Value Reference Range Interpretation Comme nts POCT PH U (test code = 3254) 7.0 mg/dl 5-8 POCT U LEUK EST (test code = 3263) Negative Negative - Negative POCT U NIT (test code = 3262) Negative Negative - Negati ve POCT U PROT (test code = 3259) 30mg Negative - Negat kamala POCT U GLU (test code = 3256) Negative Negative - Negati ve POCT U KETONE (test code = 3258) Negative Negative - Negative POCT U BLD (test code = 3257) Negative Negative - Negati ve [facility] URINALYSIS W/O SPECIFIC [id number] 18:38:00* Test Item Value Reference Range Interpretation Comme nts POCT PH U (test code = 3254) 6.0 mg/dl 5-8 POCT U LEUK EST (test code = 3263) Neg Negative - Negative POCT U NIT (test code = 3262) Neg Negative - Negati ve POCT U PROT (test code = 3259) Neg Negative - Negat [place] POCT U GLU (test code = 3256) Neg Negative - Negati ve POCT U KETONE (test code = 3258) Neg Negative - Negative POCT U BLD (test code = 3257) Neg Negative - [facility]ati ve [facility]O SPECIFIC [id number] 18:04:00* Test Item Value Reference Range Interpretation Comme nts POCT PH U (test code = 3254) 8.5 mg/dl 5-8 A POCT U LEUK EST (test code = 3263) small Negative - Negative POCT U NIT (test code = 3262) - Negative - Negati ve POCT U PROT (test code = 3259) - Negative - Negat [place] POCT U GLU (test code = 3256) - Negative - Negati ve POCT U KETONE (test code = 3258) - Negative - Negative POCT U BLD (test code = 3257) - Negative - Negati ve Lab Interpretation (test cod e = [id number]) Abnormal [facility] URINALYSIS W/O SPECIFIC [id number] 16:36:00* Test Item Value Reference Range Interpretation Comme nts POCT PH U (test code = 3254) 8.5 mg/dl 5-8 A POCT U LEUK EST (test code = 3263) Negative Negative - Negative POCT U NIT (test code = 3262) Negative Negative - Negati ve POCT U PROT (test code = 3259) Negative Negative - Negat [place] POCT U GLU (test code = 3256) Negative Negative - Negati ve POCT U KETONE (test code = 3258) Negative Negative - Negative POCT U BLD (test code = 3257) Negative Negative - Negati ve Lab Interpretation (test cod e = 52335-2) Abnormal [facility] URINALYSIS W/O SPECIFIC [id number] 16:36:00* Test Item Value Reference Range Interpretation Comme nts POCT PH U (test code = 3254) 8.5 mg/dl 5-8 A POCT U LEUK EST (test code = 3263) Negative Negative - Negative POCT U NIT (test code = 3262) Negative Negative - Negati ve POCT U PROT (test code = 3259) Negative Negative - Negat kamala POCT U GLU (test code = 3256) Negative Negative - Negati ve POCT U KETONE (test code = 3258) Negative Negative - Negative POCT U BLD (test code = 3257) Negative Negative - Negati ve Lab Interpretation (test cod e = 26223-7) Abnormal [facility] URINALYSIS W/O SPECIFIC [id number] 13:52:00* Test Item Value Reference Range Interpretation Comme nts POCT PH U (test code = 3254) 7.0 mg/dl 5-8 POCT U LEUK EST (test code = 3263) Negative Negative - Negative POCT U NIT (test code = 3262) Negative Negative - Negati ve POCT U PROT (test code = 3259) Negative Negative - Negat kamala POCT U GLU (test code = 3256) Negative Negative - Negati ve POCT U KETONE (test code = 3258) Negative Negative - Negative POCT U BLD (test code = 3257) Negative Negative - Negati ve [facility] URINALYSIS W/O SPECIFIC [id number] 13:52:00* Test Item Value Reference Range Interpretation Comme nts POCT PH U (test code = 3254) 7.0 mg/dl 5-8 POCT U LEUK EST (test code = 3263) Negative Negative - Negative POCT U NIT (test code = 3262) Negative Negative - Negati ve POCT U PROT (test code = 3259) Negative Negative - Negat kamala POCT U GLU (test code = 3256) Negative Negative - Negati ve POCT U KETONE (test code = 3258) Negative Negative - Negative POCT U BLD (test code = 3257) Negative Negative - Negati ve [facility] URINALYSIS W/O SPECIFIC [id number] 13:52:00* Test Item Value Reference Range Interpretation Comme nts POCT PH U (test code = 3254) 7.0 mg/dl 5-8 POCT U LEUK EST (test code = 3263) Negative Negative - Negative POCT U NIT (test code = 3262) Negative Negative - Negati ve POCT U PROT (test code = 3259) Negative Negative - Negat kamala POCT U GLU (test code = 3256) Negative Negative - Negati ve POCT U KETONE (test code = 3258) Negative Negative - Negative POCT U BLD (test code = 3257) Negative Negative - Negati ve [facility] URINALYSIS W/O SPECIFIC [id number] 21:04:00* Test Item Value Reference Range Interpretation Comme nts POCT PH U (test code = 3254) 6.0 mg/dl 5-8 POCT U LEUK EST (test code = 3263) Negative Negative - Negative POCT U NIT (test code = 3262) Negative Negative - Negati ve POCT U PROT (test code = 3259) Trace Negative - Negat kamala POCT U GLU (test code = 3256) Negative Negative - Negati ve POCT U KETONE (test code = 3258) Negative Negative - Negative POCT U BLD (test code = 3257) small Negative - Negati ve [facility] URINALYSIS W/O SPECIFIC [id number] 17:32:00* Test Item Value Reference Range Interpretation Comme nts POCT PH U (test code = 3254) 7.5 mg/dl 5-8 POCT U LEUK EST (test code = 3263) Negative Negative - Negative POCT U NIT (test code = 3262) Negative Negative - Negati ve POCT U PROT (test code = 3259) Negative Negative - Negat kamala POCT U GLU (test code = 3256) Negative Negative - Negati ve POCT U KETONE (test code = 3258) Negative Negative - Negative POCT U BLD (test code = 3257) Negative Negative - Negati ve [facility] URINALYSIS W SPECIFIC [id number] 16:35:00* Test Item Value Reference Range Interpretation Comme nts POCT U SP GRAV (test code = 3255) na 1.005-1.025 POCT PH U (test code = 3254) 7.0 mg/dl 5-8 POCT U LEUK EST (test code = 3263) neg Negative - Negative POCT U NIT (test code = 3262) neg Negative - Negati ve POCT U PROT (test code = 3259) neg Negative - Negat kamala POCT U GLU (test code = 3256) neg Negative - Negati ve POCT U KETONE (test code = 3258) neg Negative - Negative POCT U UROBILI (test code = 3260) na 0.2-1 POCT U BILI (test code = 3261) na Negative - Negat kamala POCT U BLD (test code = 3257) neg Negative - Negati ve POCT U COLOR (test code = 3266) na POCT U APPEAR (test code = 3267) [facility] URINALYSIS W SPECIFIC [id number] 16:35:00* Test Item Value Reference Range Interpretation Comme nts POCT U SP GRAV (test code = 3255) na 1.005-1.025 POCT PH U (test code = 3254) 7.0 mg/dl 5-8 POCT U LEUK EST (test code = 3263) neg Negative - Negative POCT U NIT (test code = 3262) neg Negative - Negati ve POCT U PROT (test code = 3259) neg Negative - Negat kamala POCT U GLU (test code = 3256) neg Negative - Negati ve POCT U KETONE (test code = 3258) neg Negative - Negative POCT U UROBILI (test code = 3260) na 0.2-1 POCT U BILI (test code = 3261) na Negative - Negat kamala POCT U BLD (test code = 3257) neg Negative - Negati ve POCT U COLOR (test code = 3266) na POCT U APPEAR (test code = 3267) [facility] URINALYSIS W/O SPECIFIC [id number] 16:35:00* Test Item Value Reference Range Interpretation Comme nts POCT PH U (test code = 3254) 7.0 mg/dl 5-8 POCT U LEUK EST (test code = 3263) Neg Negative - Negative POCT U NIT (test code = 3262) Neg Negative - Negati ve POCT U PROT (test code = 3259) Neg Negative - Negat kamala POCT U GLU (test code = 3256) Neg Negative - Negati ve POCT U KETONE (test code = 3258) Neg Negative - Negative POCT U BLD (test code = 3257) Neg Negative - Negati ve [facility] URINALYSIS W SPECIFIC [id number] 20:47:00* Test Item Value Reference Range Interpretation Comme nts POCT U SP GRAV (test code = 3255) na 1.005-1.025 POCT PH U (test code = 3254) 6.5 mg/dl 5-8 POCT U LEUK EST (test code = 3263) neg Negative - Negative POCT U NIT (test code = 3262) neg Negative - Negati ve POCT U PROT (test code = 3259) neg Negative - Negat kamala POCT U GLU (test code = 3256) neg Negative - Negati ve POCT U KETONE (test code = 3258) neg Negative - Negative POCT U UROBILI (test code = 3260) na 0.2-1 POCT U BILI (test code = 3261) na Negative - Negat kamala POCT U BLD (test code = 3257) 1+ Negative - Negati ve POCT U COLOR (test code = 3266) na POCT U APPEAR (test code = 3267) na [facility] URINALYSIS W/O SPECIFIC [id number] 16:06:00* Test Item Value Reference Range Interpretation Comme nts POCT PH U (test code = 3254) 8.0 mg/dl 5-8 POCT U LEUK EST (test code = 3263) Negative Negative - Negative POCT U NIT (test code = 3262) Negative Negative - Negati ve POCT U PROT (test code = 3259) Negative Negative - Negat kamala POCT U GLU (test code = 3256) Negative Negative - Negati ve POCT U KETONE (test code = 3258) Negative Negative - Negative POCT U BLD (test code = 3257) Negative Negative - Negati ve [facility] URINALYSIS W/O SPECIFIC [id number] 16:06:00* Test Item Value Reference Range Interpretation Comme nts POCT PH U (test code = 3254) 8.0 mg/dl 5-8 POCT U LEUK EST (test code = 3263) Negative Negative - Negative POCT U NIT (test code = 3262) Negative Negative - Negati ve POCT U PROT (test code = 3259) Negative Negative - Negat kamala POCT U GLU (test code = 3256) Negative Negative - Negati ve POCT U KETONE (test code = 3258) Negative Negative - Negative POCT U BLD (test code = 3257) Negative Negative - Negati ve [facility] URINALYSIS W/O SPECIFIC [id number] 16:06:00* Test Item Value Reference Range Interpretation Comme nts POCT PH U (test code = 3254) 8.0 mg/dl 5-8 POCT U LEUK EST (test code = 3263) Negative Negative - Negative POCT U NIT (test code = 3262) Negative Negative - Negati ve POCT U PROT (test code = 3259) Negative Negative - Negat kamala POCT U GLU (test code = 3256) Negative Negative - Negati ve POCT U KETONE (test code = 3258) Negative Negative - Negative POCT U BLD (test code = 3257) Negative Negative - [facility]ati ve [facility] [id number] 04:46:10BETA HCG<2.39Non- female and male patients: <5 mIU/mL01/31/2022 11:46 PM [facility] Gestational Age ?Range (mIU/mL) 1-10 ?Weeks ?[id number] Weeks ?[id number] Weeks ?[id number] Weeks ?[id number] Biotin has been reported to cause a negative bias, interpret results relative to patient's use of biotin.[facility] Notes Date/Time Note Provider Source 2024-09-11 14:13:53 09/08/24 - bhcg 14.72; progestrone 2.05. Called pt, verified name/. Informed of Dr. Cabezas's message and request for a home UPT. Pt verbalized understanding and agreed with POC. I routed chart back to Dr. Cabezas for clarification on labs completed 09/08/24. [facility] 2024-09-11 07:42:19 Letter sent via [employer] and mail, encounter closed. [facility] 2024-09-10 10:09:21 Attempted to call pt, no answer, VMB full, unable to LVM. If pt calls back inform last beta is low at 14.72. Inform pt Elena has orders for another beta to be performed today to confirm trend down. [facility] 2024-09-09 12:13:31 [employer] message sent [facility] 2024-09-09 10:08:50 Images from the original note were not included. Attempted to call pt, no answer, unable to LVM, mailbox full. If pt calls back inform last beta is low at 14.72. Inform pt Elena has orders for another beta to be performed tmr to confirm. [facility] 2024-09-09 09:58:09 Spoke with Elena, Clarified Beta 48hrs from first. [facility] 2024-09-08 14:00:00 Images from the original note were not included. Venipuncture collection performed by clean technique on the right anticubitus. Total of 1 attempts were made. Slight pressure and a bandage/dressing were applied to the site(s). The patient experienced no complications. The following specimens were processed according to instructions and sent to [facility] laboratories per lab order on 09/08/2024 LT BLUE SST 2 RED LAV PPT DK GREEN (LiHep) DK GREEN (SodH) LYNN DK BLUE (K2) DK BLUE (S) ACD Blood Culture NIPT/NTD [facility] 2024-09-08 09:29:34 Images from the original note were not included. Per JEM Kumar: [facility] 2024-09-08 08:13:08 Duplicate encounter. Inez Bruner [facility] 2023-12-31 09:21:53 Attempted to call pt, no answer at this time,unable to leave ARTIE VARGAS full. [employer] message sent to pt by provider. Renee Wahl RN [facility] 2023-12-28 14:53:02 Ceci Harris is a 33 year old female Closing encounter. Patient/family spoke with clinic on 12/26/23. Airam Ortega RN [facility] 2023-12-26 08:44:57 12/25 8:35 am TC-mother answered phone Reports pt sleeping. Reports pt passed last night approximately 3:00am. Reports she is stable Will have pt contact clinic for follow up evaluation appointment . 12/26 12:30 TC- unable to leave voicemail ITaot message sent for pt to contact clinic for fu appt FURNACE HAND-FAMILY MIDLEVEL PROVIDER [facility] 2023-12-25 17:03:53 Attempted to call x2 but no answer and mailbox full. If patient calls back, please offer procedure date Sunday12/28/23 for D&C for miscarriage. We would plan on signing consents the morning of surgery. Alternatively she could come in to clinic Thursday to sign consents. Please let me know if she calls back and agrees as the surgery request needs to be posted KAMARI. Thanks! [facility]-OBSTETRICS & GYNECOLOGY STAFF [facility] 2023-12-24 16:38:02 Message given to provider for review. [facility] 2023-12-24 13:40:13 Ceci Harris is a 33 year old female Patient is calling back to notify she would like to go ahead and schedule the physician assisted option given by DWIGHT Griffith after miscarriage. Shanita Alvarenga [facility] 2023-12-19 13:40:00 Age: [age] year old GA: 10w4d CC: NAYA HPI: 33 year old yo at 10w4d who presents for NAYA. c/b: 1. Reports intermittent dul; headache REVIEW OF SYSTEMS: Constitutional: negative Endocrine: negative HEENT: negative Cardiovascular: negative Respiratory: negative Gastrointestinal: negative Genitourinary: negative Neuro/Psych: negative Skin: negative Heme: negative Lymph: negative PE: BP 113/70 | Pulse 90 | Temp 37.1 ?C (98.8 ?F) | Ht 5' 2" (1.575 m) | Wt 151 lb (68.5 kg) | LMP 10/06/2023 (Exact Date) | SpO2 98% | BMI 27.62 kg/m? GEN- NAD, AAOx3 Abd- soft, gravid, A/P: 33 year old at 10w4d with Estimated Date of Delivery: 07/12/24 Unable to visualize adequately with transabdominal usg. TVUS done in clinic, + IUP, CRL_ 18.3 mm (8 w 2d), cardiac motion not noted . Sent to [facility] for viability confirmation. Confirmation of missed AB with MFM. Pt returned to clinic. Discussed findings with pt. We discussed options including : expectant management, misoprostil, D&C-needed to be confirmed per physician Pt would like to think about and discuss with family. She will call clinic If expected management, would need to be seen in 1 week for clinic follow up JEM Delarosa 12/19/2023 ID #: [id number] Name: CECI KIMBERLY : [birth year] (33 yrs)(F) Date: 12/19/2023 03:36 pm Performed By: Maribeth Leos RDMS, RDCS-FE Attending: Mayte Kim MD Exam Location: [place] Referred By: ELENA GRIFFITH [facility] Ref Address: [address] [place] [address] Code OB Limited + Transvaginal [id number] Code Encounter to determine viability of O36.80x0 Missed O02.1 : 8 Term: 3 Ayush: SAB: 4 TOP: Ectopic: Livin Number Of Fetuses: 1 Pole: Seen Preg. Location: Intrauterine Cardiac Activity: Not observed Gest. Sac: Seen Presentation: Too early to evaluate Yolk Sac: Seen Placenta: Too early to evaluate Amniotic Fluid Amniotic F.V.: Within normal limits CRL: 19.66 mm. G. Age: 8w 4d RANGEL: 07/26/2024 LMP: 10w 4d Date: 10/06/23 RANGEL: 07/12/24 Best: 10w 4d Determined By: LMP (10/06/23) RANGEL: 07/12/24 Cervix Normal appearance transabdominally Uterus Size(cm) 11.38 x 8.34 x 7.28 Within Normal Limits Left Ovary Adnexa evaluated ovary not seen Right Ovary Size(cm) 2.66 x 2.25 x 1.68 Vol(ml): 5.26 Visualized Patient's identity was confirmed by transportation driver before the scan. Name and date of were verified. Patient was referred for ultrasound for (see indications). A limited ultrasound was performed (81582) for this indication. ID #: [id number] [facility] REPORT 1 of 1 visit(s) Date: 12/19/2023 Electronically Signed Final Report by Mayte Kim MD 12/19/2023 04:20 pm ? Copyright 1990 [employer]. All Rights Reserved. www.[employer] Luis 7.882 Page 1 of 2 Patient Info Performed By Service(s) Provided Indications OB History Evaluation Biometry Gestational Age Cervix Uterus Adnexa Comments A transvaginal sono (09678) was also performed. A missed AB was seen. F/U scheduled: Pt to return to clinic. Thank you for this referral. [employer]ILY [employer]LEVEL PROVIDER [facility] 2023-11-30 17:05:36 Images from the original note were not included. 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 I went to request it the correct way through my chart but it keeps saying there is an issue. I really need these prescriptions kamari. Thank you for your understanding. I reviewed Epic. Patient did have available refills of the Vitamin at [facility]. I E-scribed the remaining refills to the [facility] on file. Receipt confirmed by Pharmacy at 505PM. Encounter routed to the clinic to refill the Ferrous Sulfate, no refills remaining. Janeth Perera [facility] 2023-11-21 15:00:00 Age: [age] year old GA: 6w4d No c/o. Denies vb cramping n/v [facility] 2023-11-08 14:08:35 NOB email sent. Inez Bruner [facility] 2023-11-08 08:30:43 New ob lmp 10/05 Scheduled 11/20 Celia Bowers [facility] 2023-05-22 12:48:56 Reviewed pt's chart LWWE- 04/18/2023 NOV- 06/05/2023 Refill sent to pharmacy, per SDO. ICAL LABORATORY ASSISTANT Renee Wahl RN [facility] 2023-01-11 09:00:00 Formatting of this n ote is different from the original. Images from the original note were not included. Venipuncture collection performed by clean technique on the left anticubitus. Total of 1 attempts were made. Slight pressure and a bandage/dressing were applied to the site(s). The patient experienced no complications. The following specimens were processed according to instructions and sent to [facility] laboratories per lab order on 01/11/2023 : LT BLUE SST 3 RED LAV 1 PPT DK GREEN (LiHep) DK GREEN (SodH) LYNN DK BLUE (K2) DK BLUE (S) ACD Blood Culture NIPT/NTD [facility] 2023-01-11 08:00:00 Formatting of this n ote might be different from the original. Age: [age] year old GA: 28w2d CC: NAYA HPI: 32 year old yo at 28w2d who presents for NAYA. Denies ctx, LOF, VB. Reports +FM. c/b: 1. No complaints today REVIEW OF SYSTEMS: Constitutional: negative Endocrine: negative HEENT: negative Cardiovascular: negative Respiratory: negative Gastrointestinal: negative Genitourinary: negative Neuro/Psych: negative Skin: negative Heme: negative Lymph: negative PE: BP 101/61 | Pulse 70 | Wt 137 lb 12.8 oz (62.5 kg) | LMP 06/27/2022 (Exact Date) | BMI 25.20 kg/m? GEN- NAD, AAOx3 Abd- soft, gravid, FH 28 FHT- 127-134 BPM A/P: 32 year old at 28w2d with Estimated Date of Delivery: 04/03/23 reassuring movement and doptones. Tdap today 1 hr gtt/CBC/RPR/HIV today NIPT low risk, MSAFP- neg A+ Urine dip negative today RTC in 2 weeks. 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 Age: [age] year old GA: 24w1d Doing well. Denies vaginal bleeding, leakage of fluid, discharge, cramping, contractions. Good movement. No headache visual changes or epigastric pain FHT and FH - appropriate. PTL , kick counts and preeclampsia precautions d/w pt RTC in 4 weeks. Rh pos One horu, cbc next visit Ultrasound reviewed with pt T [facility]
--- NOTE | 2024-12-28 18:58 | RAD REPORT ---
EXAM: Foot Left 3 View HISTORY: PAIN COMPARISON: None FINDINGS: Bones: No acute fracture identified. Alignment:No significant malalignment. Degenerative changes:None significant. Other: n/a IMPRESSION: No acute osseous abnormality.
--- NOTE | 2024-12-28 18:58 | RAD REPORT ---
EXAMINATION: Ankle Left 3 View CLINICAL INDICATION: Female, 34 years old. PAIN COMPARISON: No prior exam. FINDINGS: No acute fracture. No malalignment/dislocation. No significant focal degenerative change. Other: n/a IMPRESSION: No acute osseous abnormality.
--- NOTE | 2024-12-28 19:03 | EDPHYS ---
Physician Documentation [facility] Name: Ceci Harrell Age: 34 yrs Sex: Female : 1990 Arrival Date: 12/28/2024 Time: 17:45 Bed 10 Private MD: ED Physician Julio Killian HPI: 12/28 17:54 This 34 yrs old Female presents to ER via Unassigned with complaints of Foot Injury. rn 17:54 Patient reports stepped in a pothole, had inversion injury of the left ankle. Was still rn able to ambulate and limp but as time went on throughout the day began to have more swelling and pain in the foot. Patient reports now more pain in foot and ankle. No other injury and denies pain proximal to ankle.. 17:55 The patient presents with an injury, pain. 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 Last tetanus immunization: not immunized. - Infectious Disease History:: Denies. - Family history:: not pertinent. - Social history:: Smoking status: Reported history of juuling and/or vaping. - Hospitalizations: : No recent hospitalization is reported. ROS: 17:55 Constitutional: Negative for fever, chills, and weight loss, MS/Extremity: Positive for rn left foot and ankle injury with pain and swelling Skin: Negative for laceration or open wound Exam: 17:55 Constitutional: This is a well developed, well nourished patient who is awake, alert, rn and in no acute distress. MS/ Extremity: Mild tenderness left lateral malleolus and midfoot. No open wounds. Mild swelling. No cyanosis. No tenderness proximal to ankle including proximal tib-fib or knee. Vital Signs: 18:01 Pulse 95; Resp 18; Temp 97.9; Pulse Ox 100% ; Weight 61.23 kg; Height 5 ft. 2 in. ; ap3 Pain 7/10; 19:23 BP 99 / 60; Pulse 90; Resp 18; Temp 98; Pulse Ox 100% on R/A; kj2 18:01 Body Mass Index 24.69 (61.23 kg, 157.48 cm) ap3 18:01 Pain Scale: Adult ap3 MDM: 17:48 Medical Screening Exam initiated rn 19:00 Differential diagnosis: fracture, sprain. Data reviewed: vital signs, nurses notes, rn radiologic studies, plain films, and as a result, I will discharge patient. Independent interpretation of the following test(s) in the Emergency Department X-Ray: My interpretation is X-ray left ankle and foot images negative for acute fracture or dislocation per my interpretation. Counseling: I had a detailed discussion with the patient and/or guardian regarding the historical points, exam findings, and any diagnostic results supporting the discharge/admit diagnosis, radiology results, the need for outpatient follow up, to return to the emergency department if symptoms worsen or persist or if there are any questions or concerns that arise at home. Special discussion: I discussed with the patient/guardian in detail that at this point there is no indication for admission to the hospital. It is understood, however, that if the symptoms persist or worsen the patient needs to return immediately for re-evaluation. Based on the history and exam findings, there is no indication for further emergent testing or inpatient evaluation. I discussed with the patient/guardian the need to see the orthopedic surgeon for further evaluation of the symptoms. 12/28 17:52 Order name: XRAY Foot LEFT 3 View; Complete Time: 18:59 rn 12/28 17:52 Order name: XRAY Ankle LEFT 3 view; Complete Time: 18:59 rn 12/28 18:59 Order name: Walking boot rn Administered Medications: 19:22 Drug: HYDROcodone-acetaminophen PO 5 mg-325 mg 1 tabs PO once Route: PO; kj2 Disposition Summary: 12/28/24 19:02 Discharge Ordered Notes: Location: Home rn Problem: new rn Symptoms: have improved rn Condition: Stable rn Diagnosis - Sprain of unspecified ligament of left ankle, initial encounter rn - Contusion of left foot rn Followup: rn - With: Private Physician - When: As needed - Reason: Recheck today's complaints, Re-evaluation by your physician Discharge Instructions: - Discharge Summary Sheet rn - Ankle Sprain rn - Foot Contusion rn - Walking Boot, Adult rn Forms: - Medication Reconciliation Form rn - Antibiotic lace burn out tender - Prescription Opioid Use rn - Patient Portal Instructions rn - Leadership Thank You Letter rn Prescriptions: - Tramadol 50 mg Oral Tablet - take 1 tablet ORAL route every 8 hours as needed; 12 tablet; Refills: 0, rn Product Selection Permitted Signatures: Dispatcher [employer] Julio Calles MD MD rn Karlie Powers RN RN ap3 Karen Aaron RN RN kj2
--- NOTE | 2024-12-28 19:03 | ER ---
Nurse's Notes [facility] Name: Ceci Harrell Age: 34 yrs Sex: Female : 1990 Arrival Date: 12/28/2024 Time: 17:45 Bed 10 Private MD: Diagnosis: Sprain of unspecified ligament of left ankle, initial encounter;Contusion of left foot Presentation: 12/28 18:01 Chief complaint: Patient states: she rolled her right ankle today when ambulating in ap3 grass. patient currently rates her pain as a 7/10 on the pain scale. Coronavirus screen: At this time, the client does not indicate any symptoms associated with coronavirus-19. Ebola Screen: No symptoms or risks identified at this time. Initial Sepsis Screen: Does the patient meet any 2 criteria? No. Patient's initial sepsis screen is negative. Does the patient have a suspected source of infection? No. Patient's initial sepsis screen is negative. Risk Assessment: Do you want to hurt yourself or someone else? Patient reports no desire to harm self or others. Onset of symptoms was December 28, 2024. 18:01 Method Of Arrival: Wheelchair ap3 18:01 Acuity: KYA 4 ap3 Triage Assessment: 18:03 General: Appears in no apparent distress. Behavior is calm, cooperative, appropriate ap3 for age. Pain: Complains of pain in right foot Pain currently is 7 out of 10 on a pain scale. Neuro: Level of Consciousness is awake, alert, obeys commands, Oriented to person, place, time, situation, Appropriate for age. Cardiovascular: Patient's skin is warm and dry. Respiratory: Airway is patent Respiratory effort is even, unlabored, Respiratory pattern is regular, symmetrical. Musculoskeletal: Reports pain in right foot. 19:08 Injury Description: hurt right ankle. 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 Last tetanus immunization: not immunized. - Infectious Disease History:: Denies. - Family history:: not pertinent. - Social history:: Smoking status: Reported history of juuling and/or vaping. - Hospitalizations: : No recent hospitalization is reported. Screenin:03 [facility] ED Fall Risk Assessment (Adult) History of falling in the last 3 months, ap3 including since admission Yes- single mechanical fall (1 pt) Confusion or Disorientation No (0 pts) Intoxicated or Sedated No (0 pts) Impaired Gait No (0 pts) Mobility Assist Device Used No (0 pt) Altered Elimination No (0 pt) Score/Fall Risk Level 0 - 2 = Low Risk Oriented to surroundings, Maintained a safe environment, Educated pt \T\ family on fall prevention, incl call for assistance when getting out of bed, Assessed \T\ reinforced patient's understanding of fall precautions, Hourly rounding (assess needs \T\ fall precautionary measures) done, Used ambulatory aids as needed (educated on \T\ assisted with). Abuse screen: Denies threats or abuse. Nutritional screening: No deficits noted. Tuberculosis screening: No symptoms or risk factors identified. Assessment: 18:15 General: Appears in no apparent distress. Behavior is calm, cooperative. Pain: kj2 Complains of pain in right foot Pain currently is 7 out of 10 on a pain scale. Neuro: Level of Consciousness is awake, alert, obeys commands, Oriented to person, place, time, situation. Cardiovascular: Patient's skin is warm and dry. Respiratory: Airway is patent Respiratory effort is even, unlabored. GI: No signs and/or symptoms were reported involving the gastrointestinal system. : No signs and/or symptoms were reported regarding the genitourinary system. 19:07 Reassessment: Patient and/or family updated on plan of care and expected duration. Pain kj2 level reassessed. Patient is alert, oriented x 3, equal unlabored respirations, skin warm/dry/pink. Vital Signs: 18:01 Pulse 95; Resp 18; Temp 97.9; Pulse Ox 100% ; Weight 61.23 kg; Height 5 ft. 2 in. ; ap3 Pain 7/10; 19:23 BP 99 / 60; Pulse 90; Resp 18; Temp 98; Pulse Ox 100% on R/A; kj2 18:01 Body Mass Index 24.69 (61.23 kg, 157.48 cm) ap3 18:01 Pain Scale: Adult ap3 ED Course: 17:48 Patient arrived in ED. al6 17:48 Julio Killian MD is Attending Physician. rn 18:02 Triage completed. ap3 18:04 Arm band placed on right wrist. ap3 18:15 Patient has correct armband on for positive identification. Bed in low position. Call kj2 light in reach. Provided Education on: call light. 18:47 Karen Aaron, RN is Primary Nurse. kj2 18:49 No provider procedures requiring assistance completed. kj2 18:54 XRAY Foot LEFT 3 View In Process Unspecified. EDMS 18:54 XRAY Ankle LEFT 3 view In Process Unspecified. EDMS 19:08 Patient did not have IV access during this emergency room visit. kj2 Administered Medications: 19:22 Drug: HYDROcodone-acetaminophen PO 5 mg-325 mg 1 tabs PO once Route: PO; kj2 Medication: 18:48 VIS not applicable for this client. kj2 Outcome: 19:02 Discharge ordered by . rn 19:07 Discharged to home via wheelchair, with family, kj2 19:07 Condition: stable 19:07 Discharge instructions given to patient, family, Instructed on discharge instructions, follow up and referral plans. Demonstrated understanding of instructions, follow-up care, 19:34 Patient left the ED. kj2 Signatures: Dispatcher [employer] EDMS Julio Killian MD MD rn Prokisch, Amanda, RN RN ap3 Karen Aaron, BENSON RN kj2 Nicci Miller
[2024-12-28] MEDS ORDERED: HYDROCODONE/APAP 5/325 MG TAB ONE (19:09)
[2024-12-29 00:50] VITALS: O2SAT 100
[2024-12-29 00:54] VITALS: BP 99/60; TEMP 98
== END 2024-12-28 19:34 | disposition home or self-care (01) ==
LOC: ER 17:45
DX: S93.402A Sprain of unspecified ligament of left ankle, initial encounter (principal)
CPT/HCPCS: 99283